=== PATIENT | male | born 1930 | race African-American/Black ===

== ENCOUNTER 2016-10-03 14:48 | Inpatient (IN) | payer MEDICARE, MEDICAID ==
[2016-10-03] MEDS ORDERED: CEFTRIAXONE 1 GM/D5W RTU 50 ML IV ONE (15:46)
--- NOTE | 2016-10-03 15:46 | ER Document Report ---
ED General - General Chief Complaint: Decreased LOC Stated Complaint: LETHARGIC Mode of Arrival: Ambulatory Information source: Patient Notes: 85-year-old male who had recent hip replacement UTI was discharged home on antibiotics presents with complaints of decreased responsiveness per family. Patient was sent to [facility] OUTSIDE OF THE [place] IN LAST 30 DAYS: No - Related Data Allergies/Adverse Reactions: sulfamethoxazole [From Bactrim] Allergy (Verified 07/04/16 21:04) trimethoprim [From Bactrim] Allergy (Verified 07/04/16 21:04) Past Medical History - Social History Smoking Status: Never Smoker Cigarette use (# per day): No Chew tobacco use (# tins/day): No Smoking Education Provided: No Family History: Reviewed & Not Pertinent - Past Medical History Cardiac Medical History: Reports: Hx Hypercholesterolemia, Hx Hypertension GI Medical History: Reports: Hx Gastroesophageal Reflux Disease Past Surgical History: Reports: Hx Abdominal Surgery - hernia, Hx Appendectomy, Hx Orthopedic Surgery - R THR - Immunizations Hx Diphtheria, Pertussis, Tetanus Vaccination: Yes Review of Systems - Review of Systems Notes: REVIEW OF SYSTEMS: CONSTITUTIONAL : Admits to fever EENT: Decreased oral intake CARDIOVASCULAR: Denies chest pain. Denies palpitations or racing or irregular heart beat. Denies ankle edema. RESPIRATORY: Denies cough, cold, or chest congestion. Denies shortness of breath, difficulty breathing, or wheezing. GASTROINTESTINAL: Denies abdominal pain or distention. Denies nausea, vomiting , or diarrhea. Denies blood in vomitus, stools, or per rectum. Denies black, tarry stools. Denies constipation. GENITOURINARY: Denies difficulty urinating, painful urination, burning, frequency, blood in urine, or discharge. MUSCULOSKELETAL: Denies back or neck pain or stiffness. Denies joint pain or swelling. SKIN: Denies rash, lesions or sores. HEMATOLOGIC : Denies easy bruising or bleeding. LYMPHATIC: Denies swollen, enlarged glands. NEUROLOGICAL: Admits to decreased responsiveness per family PSYCHIATRIC: Denies anxiety or stress. Denies depression, suicidal ideation, or homicidal ideation. ALL OTHER SYSTEMS REVIEWED AND NEGATIVE. Dictation was performed using [employer] voice recognition software PHYSICAL EXAMINATION: GENERAL: Chronically ill-appearing male HEAD: Atraumatic, normocephalic. EYES: Pupils equal round and reactive to light, extraocular movements intact, sclera anicteric, conjunctiva are normal. ENT: Nares patent, oropharynx clear without exudates. Moist mucous membranes. NECK: Normal range of motion, supple without lymphadenopathy LUNGS: Breath sounds clear to auscultation bilaterally and equal. No wheezes rales or rhonchi. HEART: Regular rate and rhythm without murmurs ABDOMEN: Soft, nontender, nondistended abdomen. No guarding, no rebound. No masses appreciated. Lux urine notes particles Musculoskeletal: Normal range of motion, no pitting or edema. No cyanosis. NEUROLOGICAL: pt does not speak but opens his eyes and follows with his eyes PSYCH: Normal mood, normal affect. SKIN: Warm, Dry, normal turgor, no rashes or lesions noted. Course - Re-evaluation Re-evalutation: 10/03/16 18:11 Dr Yo gusman for admission, will admit to hospital service 10/03/16 18:12 I spoke with Abida Louie, last hgb on dc was 8.2 no vital signs in computer at this time, but noted on monitor to be nsr, normotensive, afebrile and in no distress - Laboratory Result Diagrams: 10/03/16 17:00 10/03/16 17:00 Laboratory results interpreted by me: 10/03/16 10/03/16 10/03/16 17:00 17:00 17:00 WBC 16.3 H RBC 2.57 L Hgb 7.7 L Hct 23.8 L RDW 15.0 H Seg Neutrophils % 81.4 H Lymphocytes % 10.7 L Absolute Neutrophils 13.3 H BUN 36 H Creatinine 1.31 H Est GFR (Non-Af Amer) 52 L Albumin 3.1 L Urine Urobilinogen 2.0 H Ur Leukocyte Esterase LARGE H - Diagnostic Test Radiology reviewed: Image reviewed, Reports reviewed Discharge - Discharge Clinical Impression: UTI (urinary tract infection) Qualifiers: Hematuria presence: with hematuria Qualified Code(s): N30.01 - Acute cystitis with hematuria Anemia Qualifiers: Anemia type: unspecified type Qualified Code(s): D64.9 - Anemia, unspecified Leukocytosis Qualifiers: Leukocytosis type: other Qualified Code(s): D72.828 - Other elevated white blood cell count Condition: Stable Disposition: ADMITTED INPATIENT Admitting Provider: Hospitalist Unit Admitted: Telemetry
[2016-10-03] MEDS ORDERED: PANTOPRAZOLE SODIUM 40 MG VIAL IV ONE (16:21)
[2016-10-03 17:30] LABS: VENOUS BLOOD BASE EXCESS 2.4 mmol/L; VENOUS BLOOD HCO3 27.6 mmol/L (20-32); VENOUS BLOOD PCO2 44.7 mmHg (35-63); VENOUS BLOOD PH 7.41 (7.30-7.42)
[2016-10-03 17:35] LABS: PROTHROMBIN TIME 14.6 SEC (11.4-15.4)
[2016-10-03 17:42] LABS: ABSOLUTE BASOPHILS # (AUTO) 0.1 10^3/uL (0.0-0.2); ABSOLUTE EOSINOPHILS # (AUTO) 0.1 10^3/uL (0.0-0.6); ABSOLUTE LYMPHOCYTES (AUTO) 1.7 10^3/uL (0.5-4.7); ABSOLUTE MONOCYTES (AUTO) 1.2 10^3/uL (0.1-1.4); ABSOLUTE NEUT (AUTO) 13.3 10^3/uL (1.7-8.2); BASOPHILS % (AUTO) 0.4 % (0-2); EOSINOPHILS % (AUTO) 0.4 % (0-6); HEMATOCRIT 23.8 % (37.9-51.0); HGB HCT DIFFERENCE -0.7; LYMPHOCYTES % (AUTO) 10.7 % (13-45); MEAN CORPUSCULAR HEMOGLOBIN 29.9 pg (27.0-33.4); MEAN CORPUSCULAR HGB CONC 32.3 g/dL (32.0-36.0); MEAN CORPUSCULAR VOLUME 93 fl (80-97); MONOCYTES % (AUTO) 7.1 % (3-13); RED BLOOD COUNT 2.57 10^6/uL (4.35-5.55); SEGMENTED NEUTROPHILS % (AUTO) 81.4 % (42-78); WHITE BLOOD COUNT 16.3 10^3/uL (4.0-10.5)
[2016-10-03 17:43] LABS: ALANINE AMINOTRANSFERASE 39 U/L (21-72); ALBUMIN 3.1 g/dL (3.5-5.0); ALKALINE PHOSPHATASE 83 U/L (38-126); ANION GAP 13 (5-19); ASPARTATE AMINO TRANSFERASE 42 U/L (17-59); BILIRUBIN,TOTAL 0.8 mg/dL (0.2-1.3); BLOOD UREA NITROGEN 36 mg/dL (7-20); CALCIUM 9.2 mg/dL (8.4-10.2); CARBON DIOXIDE 24 mmol/L (22-30); CHLORIDE 103 mmol/L (98-107); CREATININE RESULT 1.31 mg/dL (0.52-1.25); GLUCOSE 104 mg/dL (75-110); POTASSIUM 4.2 mmol/L (3.6-5.0); SODIUM 140.4 mmol/L (137-145); TOTAL PROTEIN 6.4 g/dL (6.3-8.2)
[2016-10-03 17:46] LABS: APPEARANCE,URINE SLIGHTLY-CLOUDY; BILIRUBIN,URINE NEGATIVE (NEGATIVE); GLUCOSE, URINE NEGATIVE (NEGATIVE); KETONES,URINE NEGATIVE (NEGATIVE); LEUKOCYTE ESTERASE,URINE LARGE (NEGATIVE); NITRITE,URINE NEGATIVE (NEGATIVE); PROTEIN,URINE NEGATIVE (NEGATIVE); URINE SPECIFIC GRAVITY 1.025
[2016-10-03] MEDS ORDERED: NORMAL SALINE 1000 ML 1,000 ML IV PRN (17:51)
[2016-10-03 17:57] LABS: HEMOGLOBIN 7.7 g/dL (13.5-17.0)
--- NOTE | 2016-10-03 20:34 | PDOC H&P ---
History of Present Illness Admission Date/PCP: 10/03/16 19:08 GLADYS CARVAJAL MD Patient complains of: Decreased responsiveness. Altered mental status. History of Present Illness: GAVIN GUERRA is a 85 year old male who fell on 09/26/2016 and suffered a right hip fracture. He had a hip replacement on 09/27/2016. He was then transferred to term rehabilitation at [facility] on 09/30/2016. He developed decreased responsiveness and was brought to the [place] emergency department where he was found to have a white blood count of 16.3 and a very positive urine analysis. He also has a hemoglobin of 7.7. He is admitted with a diagnosis of UTI with sepsis and altered mental status, as well as the recent surgical blood loss anemia. Past Medical History Cardiac Medical History: Reports: Hyperlipidema, Hypertension Renal/ Medical History: Reports: Other - UTI GI Medical History: Reports: Gastroesophageal Reflux Disease Past Surgical History Past Surgical History: Reports: Appendectomy, Herniorrhaphy, Orthopedic Surgery - R THR Social History Smoking Status: Never Smoker - Advance Directive Resuscitation Status: Full Code Family History Family History: Reviewed & Not Pertinent Parental Family History Reviewed: No Children Family History Reviewed: No Sibling(s) Family History Reviewed.: No - Unable to obtain due to altered mental status. Medication/Allergy Home Medications: Allopurinol [Zyloprim 300 mg Tablet] 300 mg PO DAILY 10/03/16 Aspirin [Aspirin 325 mg Tablet] 325 mg PO DAILY 10/03/16 Cholecalciferol (Vitamin D3) [Vitamin D3 5000 unit Capsule] 5,000 unit PO DAILY 10/03/16 Cyanocobalamin (Vitamin B-12) [Vitamin B12] 2,500 mcg PO DAILY 10/03/16 Dextromethorphan HBr [Delsym] 30 mg PO Q6 10/03/16 Iron Polysaccharide Complex [Polysaccharide Iron 150] 150 mg PO DAILY 10/03/16 Omeprazole 40 mg PO BIDACBS 10/03/16 Allergies/Adverse Reactions: sulfamethoxazole [From Bactrim] Allergy (Verified 07/04/16 21:04) trimethoprim [From Bactrim] Allergy (Verified 07/04/16 21:04) Review of Systems ROS unobtainable: Other - ROS unobtainable due to decreased level of responsiveness. Physical Exam Vital Signs: Temp Pulse Resp BP Pulse Ox 97.8 F 78 21 H 145/80 H 92 10/03/16 17:23 10/03/16 15:20 10/03/16 18:00 10/03/16 17:23 10/03/16 18:00 General appearance: PRESENT: no acute distress, thin, other - poorly responsive Head exam: PRESENT: atraumatic, normocephalic Eye exam: PRESENT: conjunctiva pink, EOMI, PERRLA. ABSENT: scleral icterus Ear exam: PRESENT: normal external ear exam Mouth exam: PRESENT: dry mucosa, tongue midline Neck exam: ABSENT: carotid bruit, JVD, lymphadenopathy, thyromegaly Respiratory exam: PRESENT: clear to auscultation wally. ABSENT: rales, rhonchi, wheezes Cardiovascular exam: PRESENT: RRR. ABSENT: diastolic murmur, rubs, systolic murmur Vascular exam: PRESENT: normal capillary refill GI/Abdominal exam: PRESENT: normal bowel sounds, soft. ABSENT: distended, guarding, mass, organolmegaly, rebound, tenderness Rectal exam: PRESENT: deferred Extremities exam: PRESENT: other - hips in adductor brace. ABSENT: calf tenderness, clubbing, pedal edema Neurological exam: PRESENT: alert, awake, oriented to person, oriented to place , oriented to time, oriented to situation, CN II-XII grossly intact. ABSENT: motor sensory deficit Psychiatric exam: PRESENT: appropriate affect, normal mood. ABSENT: homicidal ideation, suicidal ideation Skin exam: PRESENT: dry, intact, warm. ABSENT: cyanosis, rash Results Impressions: Chest X-Ray 10/03/16 15:19 IMPRESSION: NO ACUTE RADIOGRAPHIC FINDING IN THE CHEST. Assessment & Plan - Diagnosis (1) UTI (urinary tract infection) Qualifiers: Hematuria presence: with hematuria Qualified Code(s): N30.01 - Acute cystitis with hematuria Is this a current diagnosis for this admission?: YesPlan: IV fluids. Rocephin. (2) Sepsis Is this a current diagnosis for this admission?: YesPlan: IV fluids. Rocephin. Monitor clinically and monitor laboratories. (3) Altered mental status Is this a current diagnosis for this admission?: YesPlan: It is likely that the AMS is related to the urinary tract infection and early sepsis. If his mental status fails to improve with treatment of the UTI and sepsis, other etiologies should be considered as well as further evaluation. (4) Hypertension Is this a current diagnosis for this admission?: YesPlan: Monitor. We will hold his home Rx for now. - Time Time Spent: 50 to 70 Minutes
[2016-10-03] MEDS: DEXTROSE 5%-1/2 NORMAL SALINE 1,000 ML IV PRN (22:43)
[2016-10-03] MEDS: HEPARIN SOD (PORCINE) 5,000 UNIT/ML 1 ML SYRINGE SUBCUT SCH (23:00)
[2016-10-04] MEDS: HEPARIN SOD (PORCINE) 5,000 UNIT/ML 1 ML SYRINGE SUBCUT SCH ×2 (05:58→13:42)
[2016-10-04 07:20] LABS: ABSOLUTE BASOPHILS # (AUTO) 0.1 10^3/uL (0.0-0.2); ABSOLUTE EOSINOPHILS # (AUTO) 0.2 10^3/uL (0.0-0.6); ABSOLUTE LYMPHOCYTES (AUTO) 1.7 10^3/uL (0.5-4.7); ABSOLUTE MONOCYTES (AUTO) 1.1 10^3/uL (0.1-1.4); ABSOLUTE NEUT (AUTO) 10.2 10^3/uL (1.7-8.2); BASOPHILS % (AUTO) 0.5 % (0-2); EOSINOPHILS % (AUTO) 1.2 % (0-6); HEMATOCRIT 22.4 % (37.9-51.0); HGB HCT DIFFERENCE -0.5; LYMPHOCYTES % (AUTO) 12.9 % (13-45); MEAN CORPUSCULAR HEMOGLOBIN 30.2 pg (27.0-33.4); MEAN CORPUSCULAR HGB CONC 32.6 g/dL (32.0-36.0); MEAN CORPUSCULAR VOLUME 93 fl (80-97); MONOCYTES % (AUTO) 8.5 % (3-13); RED BLOOD COUNT 2.42 10^6/uL (4.35-5.55); RED CELL DISTRIBUTION WIDTH 15.4 % (11.5-14.0); SEGMENTED NEUTROPHILS % (AUTO) 76.9 % (42-78); WHITE BLOOD COUNT 13.3 10^3/uL (4.0-10.5)
[2016-10-04 07:24] LABS: HEMOGLOBIN 7.3 g/dL (13.5-17.0)
[2016-10-04 07:27] LABS: ANION GAP 10 (5-19); BLOOD UREA NITROGEN 38 mg/dL (7-20); CALCIUM 8.9 mg/dL (8.4-10.2); CARBON DIOXIDE 26 mmol/L (22-30); CHLORIDE 106 mmol/L (98-107); CREATININE RESULT 1.32 mg/dL (0.52-1.25); GLUCOSE 130 mg/dL (75-110); POTASSIUM 3.4 mmol/L (3.6-5.0); SODIUM 141.6 mmol/L (137-145)
[2016-10-04] MEDS ORDERED: LANSOPRAZOLE 30 MG TAB.RAP.DR PO SCH (08:00)
[2016-10-04] MEDS ORDERED: CHOLECALCIFEROL (D3) 1,000 UNIT TABLET PO SCH (10:00)
[2016-10-04] MEDS ORDERED: CYANOCOBALAMIN (VITAMIN B-12) 1,000 MCG TABLET PO SCH (10:00)
[2016-10-04] MEDS ORDERED: (PENDING PHARMACY ID) (Cyanocobalamin (Vitamin B-12) [Vitamin B12] 2,500 MCG) PO SCH (10:00)
[2016-10-04] MEDS ORDERED: ALLOPURINOL 300 MG TABLET PO SCH (10:00)
[2016-10-04] MEDS ORDERED: ASPIRIN 325 MG TABLET PO SCH (10:00)
[2016-10-04] MEDS: DEXTROSE 5%-1/2 NORMAL SALINE 1,000 ML IV PRN (10:38)
[2016-10-04] MEDS ORDERED: NORMAL SALINE 250 ML IV PRN ×2 (11:16)
[2016-10-04] MEDS ORDERED: PHARMACY COMMUNICATION ORDER MC NR (11:30)
[2016-10-04] MEDS ORDERED: DEXTROSE 5%-1/2 NORMAL SALINE 1,000 ML IV PRN (11:46)
[2016-10-04] MEDS ORDERED: POTASSI CL 20 MEQ/50 ML RIDER 50 ML IV ONE (11:50)
[2016-10-04] MEDS ORDERED: ERTAPENEM SODIUM 1 GM in NORMAL SALINE 50 ML IV ONE (12:30)
[2016-10-04] MEDS ORDERED: CEFTRIAXONE 1 GM/D5W RTU 1 GM/50 ML RTUPB IV SCH (18:00)
[2016-10-04] MEDS ORDERED: FUROSEMIDE INJ/PF 20 MG/2 ML SDV IV ONE (18:45)
[2016-10-04] MEDS ORDERED: MORPHINE SULFATE 10 MG/ML INJ IV PRN (19:57)
[2016-10-04] MEDS: IRON POLYSACCHARIDES COMPLEX 150 MG CAPSULE PO SCH (19:58)
--- NOTE | 2016-10-04 20:02 | PDOC PROGRESS REPORT ---
Subjective Progress Note for:: 10/04/16 Subjective:: Unable to obtain review of systems secondary to underlying dementia. When I visited patient he is quite somnolent. Physical Exam Vital Signs: Temp Pulse Resp BP Pulse Ox 97.8 F 78 23 H 129/71 H 100 10/03/16 17:23 10/03/16 15:20 10/04/16 07:31 10/04/16 07:31 10/04/16 07:31 Intake & Output 10/03/16 10/04/16 10/05/16 06:59 06:59 06:59 Weight 78.3 kg Exam: General: Somnolent, no acute respiratory distress HEENT: Pupils equal round and reactive to light, oropharynx is dry, pink, no scleral icterus, no conjunctival injection Neck: No JVD, trachea midline Chest: Diminished bases bilaterally, otherwise clear to auscultation CV: Regular rate and rhythm, normal S1 and S2, no rub, or gallop Abdomen: Soft, nontender to palpation, distended, hypoactive bowel sounds; no rebound, rigidity, or guarding Extremities: No cyanosis, clubbing or edema Neuro: Somnolent Results Laboratory Results: 10/04/16 06:50 10/04/16 06:50 10/04/16 10/04/16 06:50 06:50 WBC 13.3 H RBC 2.42 L Hgb 7.3 L Hct 22.4 L MCV 93 MCH 30.2 MCHC 32.6 RDW 15.4 H Plt Count 313 Seg Neutrophils % 76.9 Lymphocytes % 12.9 L Monocytes % 8.5 Eosinophils % 1.2 Basophils % 0.5 Absolute Neutrophils 10.2 H Absolute Lymphocytes 1.7 Absolute Monocytes 1.1 Absolute Eosinophils 0.2 Absolute Basophils 0.1 Sodium 141.6 Potassium 3.4 L Chloride 106 Carbon Dioxide 26 Anion Gap 10 BUN 38 H Creatinine 1.32 H Est GFR ( Amer) > 60 Est GFR (Non-Af Amer) 52 L Glucose 130 H Calcium 8.9 Impressions: Chest X-Ray 10/03/16 15:19 IMPRESSION: NO ACUTE RADIOGRAPHIC FINDING IN THE CHEST. Assessment & Plan - Diagnosis (1) Acute on chronic intracranial subdural hematoma Is this a current diagnosis for this admission?: YesPlan: Have discussed patient's case with Dr. Han , [facility] neurosurgery, who states patient isn't a good surgical candidate due to advanced age. Recommends dexamethasone 4mg q8 for one week. Will place this and do MEND examinations q4. Plan to repeat CT scan in am. (2) Sepsis Qualifiers: Sepsis type: sepsis due to unspecified organism Qualified Code(s): A41.9 - Sepsis, unspecified organism Is this a current diagnosis for this admission?: YesPlan: Patient's sepsis possibly due to complicated UTI. Have advance patient to Invanz. 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 Will replace and reculture. Patient on Invanz. (4) Acute blood loss anemia Is this a current diagnosis for this admission?: YesPlan: Will occult patient's stool. Patient has possibly had a small amount of blood loss into his cranial. Patient likely suffering from acute blood loss anemia due to recent hip surgery. Will give 2 units packed red cells. (5) History of right hip hemiarthroplasty Is this a current diagnosis for this admission?: YesPlan: Consult physical therapy. Patient had surgery within the last 2 weeks that Martha Palma. (6) Dysphasia Is this a current diagnosis for this admission?: Yes (7) Dysphagia Qualifiers: Dysphagia type: unspecified Qualified Code(s): R13.10 - Dysphagia, unspecified Is this a current diagnosis for this admission?: YesPlan: Will obtain modified barium swallow. Have discussed with patient's family concern for silent aspiration. Will repeat chest x-ray. (8) Dementia Qualifiers: Dementia type: vascular dementia Dementia behavioral disturbance: without behavioral disturbance Qualified Code(s): F01.50 - Vascular dementia without behavioral disturbance Is this a current diagnosis for this admission?: YesPlan: Continue supportive care. Will stop Exelon patch. Patient's family reports that he was taking Delsym at home for this. (9) Hyperlipidemia Qualifiers: Hyperlipidemia type: unspecified Qualified Code(s): E78.5 - Hyperlipidemia, unspecified Is this a current diagnosis for this admission?: Yes (10) Hypertension Qualifiers: Hypertension type: essential hypertension Qualified Code(s): I10 - Essential (primary) hypertension Is this a current diagnosis for this admission?: YesPlan: Patient is apparently taking no medication for his hypertension as an outpatient. Will place when necessary hydralazine. (11) Altered mental status Qualifiers: Altered mental status type: somnolence Qualified Code(s): R40.0 - Somnolence Is this a current diagnosis for this admission?: YesPlan: Patient's somnolence likely secondary to acute on chronic subdural hematoma and sepsis from UTI. (12) Advanced directives, counseling/discussion Is this a current diagnosis for this admission?: YesPlan: Advance directives including CODE STATUS, feeding tube, as well as care plan were discussed with patient's daughters who are his surrogate decision maker. This was discussed with Bartolo Shen and Pura Birmingham, daughters in 2 separate conversations for a total of 65 minutes. - Time Time Spent with patient: 35 or more minutes Medications reviewed and adjusted accordingly: Yes Anticipated discharge: Acute Rehab - Inpatient Certification Based on my medical assessment, after consideration of the patient's comorbidities, presenting symptoms, or acuity I expect that the services needed warrant INPATIENT care.: Yes I certify that my determination is in accordance with my understanding of Medicare's requirements for reasonable and necessary INPATIENT services [42 CFR 412.3e].: Yes Medical Necessity: Significant Comorbidiites Make Outpatient Treatment Too Risky , Need Close Monitoring Due to Risk of Patient Decompensation, Need For IV Fluids, Need For Continuous Telemetry Monitoring, Need for Neurological Checks, Risk of Complication if Not Cared For in Hospital Post Hospital Care: D/C Bottoming Room Supervisor Documentation
[2016-10-05] MEDS: DEXAMETHASONE SOD PHOSPHATE INJ 4 MG/1 ML VIAL IV SCH ×4 (00:49→22:36)
[2016-10-05] MEDS: HEPARIN SOD (PORCINE) 5,000 UNIT/ML 1 ML SYRINGE SUBCUT SCH ×2 (00:49→05:48)
[2016-10-05] MEDS: PANTOPRAZOLE SODIUM 40 MG VIAL IV SCH ×3 (00:49→22:36)
[2016-10-05 02:24] LABS: ABSOLUTE EOSINOPHILS # (AUTO) 0.1 10^3/uL (0.0-0.6); ABSOLUTE LYMPHOCYTES (AUTO) 0.9 10^3/uL (0.5-4.7); ABSOLUTE MONOCYTES (AUTO) 0.6 10^3/uL (0.1-1.4); ABSOLUTE NEUT (AUTO) 11.3 10^3/uL (1.7-8.2); BASOPHILS % (AUTO) 0.3 % (0-2); EOSINOPHILS % (AUTO) 0.4 % (0-6); HGB HCT DIFFERENCE -0.3; LYMPHOCYTES % (AUTO) 7.2 % (13-45); MEAN CORPUSCULAR HEMOGLOBIN 29.6 pg (27.0-33.4); MEAN CORPUSCULAR VOLUME 90 fl (80-97); MONOCYTES % (AUTO) 4.9 % (3-13); RED BLOOD COUNT 3.34 10^6/uL (4.35-5.55); RED CELL DISTRIBUTION WIDTH 15.2 % (11.5-14.0); SEGMENTED NEUTROPHILS % (AUTO) 87.2 % (42-78)
[2016-10-05 02:27] LABS: HEMOGLOBIN 9.9 g/dL (13.5-17.0)
[2016-10-05 04:57] LABS: ABSOLUTE LYMPHOCYTES (AUTO) 0.8 10^3/uL (0.5-4.7); ABSOLUTE MONOCYTES (AUTO) 0.4 10^3/uL (0.1-1.4); ABSOLUTE NEUT (AUTO) 12.7 10^3/uL (1.7-8.2); BASOPHILS % (AUTO) 0.3 % (0-2); EOSINOPHILS % (AUTO) 0.1 % (0-6); HEMATOCRIT 27.2 % (37.9-51.0); HEMOGLOBIN 9.1 g/dL (13.5-17.0); HGB HCT DIFFERENCE 0.1; LYMPHOCYTES % (AUTO) 5.7 % (13-45); MEAN CORPUSCULAR HEMOGLOBIN 29.8 pg (27.0-33.4); MEAN CORPUSCULAR HGB CONC 33.4 g/dL (32.0-36.0); MEAN CORPUSCULAR VOLUME 89 fl (80-97); MONOCYTES % (AUTO) 2.6 % (3-13); RED BLOOD COUNT 3.05 10^6/uL (4.35-5.55); RED CELL DISTRIBUTION WIDTH 15.3 % (11.5-14.0); SEGMENTED NEUTROPHILS % (AUTO) 91.3 % (42-78); WHITE BLOOD COUNT 13.9 10^3/uL (4.0-10.5)
[2016-10-05 05:06] LABS: ANION GAP 11 (5-19); BLOOD UREA NITROGEN 40 mg/dL (7-20); CALCIUM 9.3 mg/dL (8.4-10.2); CARBON DIOXIDE 23 mmol/L (22-30); CHLORIDE 107 mmol/L (98-107); CREATININE RESULT 1.17 mg/dL (0.52-1.25); GLUCOSE 134 mg/dL (75-110); MAGNESIUM 2.2 mg/dL (1.6-2.3); POTASSIUM 3.5 mmol/L (3.6-5.0); SODIUM 141.4 mmol/L (137-145)
[2016-10-05 05:13] LABS: PREALBUMIN 11.4 mg/dL (17.6-36.0)
[2016-10-05] MEDS ORDERED: ERTAPENEM SODIUM 1 GM in NORMAL SALINE 50 ML IV SCH (10:00)
[2016-10-05] MEDS: IRON POLYSACCHARIDES COMPLEX 150 MG CAPSULE PO SCH (10:51)
[2016-10-05] MEDS ORDERED: PHYTONADIONE INJ 10 MG/1 ML AMPULE SUBCUT ONE (13:00)
[2016-10-05] MEDS ORDERED: CLINDAMYCIN 600 MG/D5W RTU 600 MG/50 ML RTUPB IV ONE (15:00)
--- NOTE | 2016-10-05 15:26 | ST Inp Modified Barium Swallow ---
Medical Diagnosis - Medical Diagnoses Medical Diagnosis Description & ICD-10 Code(s): acute on chronic subdural hematoma - ICD-10 Tx Diagnosis Coding (1) Acute on chronic intracranial subdural hematoma ICD-10 Code(s): I62.01 - NONTRAUMATIC ACUTE SUBDURAL HEMORRHAGE (2) Altered mental status ICD-10 Code(s): R41.82 - ALTERED MENTAL STATUS, UNSPECIFIED (3) Complicated UTI (urinary tract infection) ICD-10 Code(s): N39.0 - URINARY TRACT INFECTION, SITE NOT SPECIFIED (4) Dementia ICD-10 Code(s): F03.90 - UNSPECIFIED DEMENTIA WITHOUT BEHAVIORAL DISTURBANCE (5) Dysphagia ICD-10 Code(s): R13.10 - DYSPHAGIA, UNSPECIFIED (6) Dysphasia ICD-10 Code(s): R47.02 - DYSPHASIA (7) History of right hip hemiarthroplasty ICD-10 Code(s): Z96.641 - PRESENCE OF RIGHT ARTIFICIAL HIP JOINT (8) Sepsis ICD-10 Code(s): A41.9 - SEPSIS, UNSPECIFIED ORGANISM ST Inpatient [facility] - General Date: 10/05/16 Date of Onset: 10/03/16 - admission - History History Obtained From: Other - EMR -: Medical - Co-morbidities & complexities as listed above, including new hip surgery making patient unable to be positioned at 90 degrees. Medications: Medications Reviewed Allergies: Refer to medical record - Subjective Current Nutritional Means: PO - mechanical soft diet & nectar thick liquids Current Symptoms: Pneumonia, Aspiration Pain: unable to communicate, no signs/symptoms of pain - Objective Assessment: Left Lateral, Reclined - patient at approximately 70-80 degrees elevation; legs positioned straight in front of him - Food Trials Food Trials Used: Thin liquids, Pureed The Patient: fed by ST, via spoon - Assessment Labial Function: Impaired Lingual Function: Impaired Mandibular Function: Impaired Velo-Pharyngeal Function: Not assessed Laryngeal Function: no volitional swallow - Pharyngeal Stage Initiation of Pharyngeal Stage: Delayed, Absent Swallow Decreased Laryngeal Elevation: Yes Reduced Pressure Generation: Yes Reduced Tongue Base Retraction: Yes Pre-Swallowing Pooling in Valleculae: Significant Pre-Swallowing Pooling in Pyriforms: Significant Reduced Thyro-Hyiod Approximation: Yes Reduced Epiglottic Excursion: Yes Reduced Pharyngeal Peristalsis: Yes - Impression/Summary Patient Presents With: Oral stage dysphagia, Pharyngeal stage dysph., Oral- Pharyngeal dysph., Profound Risk of Aspiration: Severe Risk of Nutritional Compromise: Severe - Recommendations NPO: yes Dysphagia Therapy with ORNAMENTAL MACHINE OPERATOR: No - patient unable to follow commands or initiate swallow - no indication for skilled speech therapy at this time. Other Recommendations: Patient initiated swallow from pyriforms with initial spoon sip of thin, however when given second spoon sip, did not initiate swallow without maximal cueing (swallow not triggered until barium past level of pyriforms). Patient then trialed with puree (chocolate pudding) to determine if would improve performance with increased sensory input. No swallow initiated. Suction required to remove bolus from mouth. Patient is not judged to be safe for any consistency due to delayed swallow and absence of swallow reflex. ST discussed results with referrring physician, Dr. Wong. RECOMMENDATIONS: 1. NPO due to likely aspiration of any consistency presented. Patient displays inconsistent swallowing abilities, and when initiates swallow is after significant delay that places the patient at risk for aspiration. Patient is likely aspirating secretions as well. 2. If family wishes to continue PO feeds, the patient is at risk for aspiration of any consistency presented and, in the judgement of the ST, will aspirate during any PO. However , if the family wishes to continue PO, liquids will result in least residual. Patient likely unable to initiate swallow with purees due to difficulties transferring bolus posteriorly and likely to have signficant residuals throughout pharynx, as well as risk of choking and airway obstruction. If patient improves & swallowing re-assessment is considered, would recommend FEES procedure as patient's swallows were highly delayed resulting in increased fluoro time and FEES would allow for visualization of secretions to determine patient's ability to manage before introducing bolus. - Time Total Time: 15 Total Timed Minutes: 0
[2016-10-05] MEDS: IPRATROPIUM/ALBUTEROL 0.5-2.5 MG/3 ML AMPUL NEB SCH (16:40)
--- NOTE | 2016-10-05 17:54 | PDOC PROGRESS REPORT ---
Subjective Progress Note for:: 10/05/16 Subjective:: Patient seen earlier today on morning rounds. Unable to obtain review of systems secondary to underlying dementia. Physical Exam Vital Signs: Temp Pulse Resp BP Pulse Ox 97.9 F 70 20 155/79 H 92 10/05/16 16:15 10/05/16 16:15 10/05/16 16:15 10/05/16 16:15 10/05/16 16:15 Intake & Output 10/04/16 10/05/16 10/06/16 06:59 06:59 06:59 Intake Total 2150 1350 Output Total 625 150 Balance 1525 1200 Weight 78.3 kg 68.6 kg Exam: General: Awake and tracks but does not follow commands, no acute respiratory distress HEENT: Pupils equal round and reactive to light, oropharynx is dry, pink, no scleral icterus, no conjunctival injection Neck: No JVD, trachea midline Chest: Diminished bases bilaterally, left lower lobe rhonchi CV: Regular rate and rhythm, normal S1 and S2, no rub, or gallop Abdomen: Soft, nontender to palpation, distended, hypoactive bowel sounds; no rebound, rigidity, or guarding Extremities: No cyanosis, clubbing or edema Neuro: Does not follow commands Results Laboratory Results: 10/05/16 04:41 10/05/16 04:41 10/04/16 10/05/16 10/05/16 12:28 01:52 04:41 WBC 13.0 H 13.9 H RBC 3.34 L 3.05 L Hgb 9.9 L D 9.1 L Hct 30.0 L 27.2 L MCV 90 89 MCH 29.6 29.8 MCHC 33.0 33.4 RDW 15.2 H 15.3 H Plt Count 321 308 Seg Neutrophils % 87.2 H 91.3 H Lymphocytes % 7.2 L 5.7 L Monocytes % 4.9 2.6 L Eosinophils % 0.4 0.1 Basophils % 0.3 0.3 Absolute Neutrophils 11.3 H 12.7 H Absolute Lymphocytes 0.9 0.8 Absolute Monocytes 0.6 0.4 Absolute Eosinophils 0.1 0.0 Absolute Basophils 0.0 0.0 Sodium Potassium Chloride Carbon Dioxide Anion Gap BUN Creatinine Est GFR ( Amer) Est GFR (Non-Af Amer) Glucose Calcium Magnesium Prealbumin Blood Type O POSITIVE Antibody Screen NEGATIVE 10/05/16 04:41 WBC RBC Hgb Hct MCV MCH MCHC RDW Plt Count Seg Neutrophils % Lymphocytes % Monocytes % Eosinophils % Basophils % Absolute Neutrophils Absolute Lymphocytes Absolute Monocytes Absolute Eosinophils Absolute Basophils Sodium 141.4 Potassium 3.5 L Chloride 107 Carbon Dioxide 23 Anion Gap 11 BUN 40 H Creatinine 1.17 Est GFR ( Amer) > 60 Est GFR (Non-Af Amer) > 60 Glucose 134 H Calcium 9.3 Magnesium 2.2 Prealbumin 11.4 L Blood Type Antibody Screen Impressions: KUB X-Ray 10/04/16 00:00 IMPRESSION: Colonic distention which may represent colonic ileus, chronic megacolon or distal obstruction. Head CT 10/05/16 00:00 IMPRESSION: Chronic left-sided subdural hematoma/ hygroma with possible acute component given some densities within the in the collection. Overall this is not significantly changed in size comparison the prior study (approximately 1 mm greater in size than on the prior study though this may be defect due to difference in technique. There is [id number]-[id number] midline shift which measures approximately 7 mm which is slightly increased in comparison to the prior study which measures 6 mm but again this may be due to difference in technique. No evidence of herniation. Chest X-Ray 10/05/16 06:00 IMPRESSION: Patchy airspace opacity noted in the left lung base concerning for underlying infiltrate, edema, or aspiration. Correlate clinically. Modified Barium Swallow 10/05/16 07:00 IMPRESSION: NO EVIDENCE OF PENETRATION OR ASPIRATION ALTHOUGH THE STUDY WAS LIMITED DUE TO PATIENT'S CONDITION AND INITIATION OF ONLY 1 SWALLOW OF THIN LIQUIDS. THERE WAS SPILLAGE OVER THE BASE TONGUE INTO THE VALLECULAE AND PIRIFORM SINUSES WHICH REMAIN THROUGHOUT THE ENTIRE STUDY PUTTING THE PATIENT AT HIGH RISK OF ASPIRATION. PLEASE SEE SPEECH PATHOLOGIST REPORT FOR OTHER FINDINGS AND RECOMMENDATIONS. Assessment & Plan - Diagnosis (1) Acute on chronic intracranial subdural hematoma Is this a current diagnosis for this admission?: YesPlan: Have discussed with patient's health care proxy, his daughter, the option of surgery. She reports she does not want him to "have a hole cut in his head at his age." She is elected to make patient a DNR/DNI. (2) Sepsis Qualifiers: Sepsis type: sepsis due to unspecified organism Qualified Code(s): A41.9 - Sepsis, unspecified organism Is this a current diagnosis for this admission?: YesPlan: Patient's sepsis possibly due to complicated UTI and patient now has aspiration pneumonia. 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 Patient on Invanz. (4) Acute blood loss anemia Is this a current diagnosis for this admission?: YesPlan: Will occult patient's stool. Patient has possibly had a small amount of blood loss into his cranial. Patient likely suffering from acute blood loss anemia due to recent hip surgery. Patient has had an appropriate increase and hemoglobin from 7.3 to 9.9 (5) History of right hip hemiarthroplasty Is this a current diagnosis for this admission?: YesPlan: Consult physical therapy. Patient had surgery within the last 2 weeks that Martha Palma. (6) Dysphasia Is this a current diagnosis for this admission?: Yes (7) Dysphagia Qualifiers: Dysphagia type: unspecified Qualified Code(s): R13.10 - Dysphagia, unspecified Is this a current diagnosis for this admission?: YesPlan: Patient has failed modified barium swallow study will discuss with patient's family the idea of PEG tube. (8) Dementia Qualifiers: Dementia type: vascular dementia Dementia behavioral disturbance: without behavioral disturbance Qualified Code(s): F01.50 - Vascular dementia without behavioral disturbance Is this a current diagnosis for this admission?: Yes (9) Hyperlipidemia Qualifiers: Hyperlipidemia type: unspecified Qualified Code(s): E78.5 - Hyperlipidemia, unspecified Is this a current diagnosis for this admission?: Yes (10) Hypertension Qualifiers: Hypertension type: essential hypertension Qualified Code(s): I10 - Essential (primary) hypertension Is this a current diagnosis for this admission?: YesPlan: Patient is apparently taking no medication for his hypertension as an outpatient. Will place when necessary hydralazine. (11) Altered mental status Qualifiers: Altered mental status type: somnolence Qualified Code(s): R40.0 - Somnolence Is this a current diagnosis for this admission?: YesPlan: Improved. Patient's somnolence likely secondary to acute on chronic subdural hematoma and sepsis from aspiration pneumonia. - Time Time Spent with patient: 35 or more minutes Medications reviewed and adjusted accordingly: Yes Anticipated discharge: Acute Rehab
[2016-10-05] MEDS: GUAIFENESIN SYRP 200 MG/10 ML UDC NG SCH (18:54)
[2016-10-05] MEDS ORDERED: PHARMACY COMMUNICATION ORDER MC NR (19:00)
[2016-10-05] MEDS ORDERED: FERROUS SULFATE LIQUID 300 MG/5 ML UDC NG ONE (19:30)
[2016-10-05] MEDS: CLINDAMYCIN 600 MG/D5W RTU 600 MG/50 ML RTUPB IV SCH (22:36)
[2016-10-06] MEDS: IPRATROPIUM/ALBUTEROL 0.5-2.5 MG/3 ML AMPUL NEB SCH ×3 (00:22→15:57)
[2016-10-06] MEDS: GUAIFENESIN SYRP 200 MG/10 ML UDC NG SCH ×7 (00:56→21:26)
[2016-10-06] MEDS: DEXAMETHASONE SOD PHOSPHATE INJ 4 MG/1 ML VIAL IV SCH ×3 (05:11→21:36)
[2016-10-06] MEDS: CLINDAMYCIN 600 MG/D5W RTU 600 MG/50 ML RTUPB IV SCH (05:11)
[2016-10-06] MEDS: DEXTROSE 5%-1/2 NORMAL SALINE 1,000 ML IV PRN ×2 (07:48→21:36)
[2016-10-06] MEDS: PANTOPRAZOLE SODIUM 40 MG VIAL IV SCH ×2 (09:24→21:36)
[2016-10-06 09:25] LABS: ABSOLUTE LYMPHOCYTES (AUTO) 1.2 10^3/uL (0.5-4.7); ABSOLUTE MONOCYTES (AUTO) 0.6 10^3/uL (0.1-1.4); ABSOLUTE NEUT (AUTO) 15.2 10^3/uL (1.7-8.2); BASOPHILS % (AUTO) 0.2 % (0-2); EOSINOPHILS % (AUTO) 0.1 % (0-6); HEMATOCRIT 33.8 % (37.9-51.0); HEMOGLOBIN 10.9 g/dL (13.5-17.0); HGB HCT DIFFERENCE -1.1; LYMPHOCYTES % (AUTO) 7.1 % (13-45); MEAN CORPUSCULAR HEMOGLOBIN 29.3 pg (27.0-33.4); MEAN CORPUSCULAR HGB CONC 32.2 g/dL (32.0-36.0); MEAN CORPUSCULAR VOLUME 91 fl (80-97); MONOCYTES % (AUTO) 3.6 % (3-13); RED BLOOD COUNT 3.71 10^6/uL (4.35-5.55); RED CELL DISTRIBUTION WIDTH 15.7 % (11.5-14.0); WHITE BLOOD COUNT 17.1 10^3/uL (4.0-10.5)
[2016-10-06] MEDS: HYDRALAZINE HCL INJ/PF 20 MG/1 ML SDV IV PRN (09:25)
[2016-10-06] MEDS: FERROUS SULFATE LIQUID 300 MG/5 ML UDC NG SCH ×2 (09:26→17:18)
[2016-10-06 09:36] LABS: ANION GAP 14 (5-19); BLOOD UREA NITROGEN 40 mg/dL (7-20); CALCIUM 9.4 mg/dL (8.4-10.2); CARBON DIOXIDE 24 mmol/L (22-30); CHLORIDE 105 mmol/L (98-107); CREATININE RESULT 1.04 mg/dL (0.52-1.25); GLUCOSE 171 mg/dL (75-110); POTASSIUM 3.3 mmol/L (3.6-5.0); SODIUM 142.6 mmol/L (137-145)
[2016-10-06] MEDS: ERTAPENEM SODIUM 1 GM in NORMAL SALINE 50 ML IV SCH (11:43)
[2016-10-06] MEDS: ENALAPRILAT DIHYDRATE INJ/PF 1.25 MG/1 ML SDV IV SCH ×3 (11:47→23:51)
[2016-10-06] MEDS ORDERED: LACTOBACILLUS ACIDOPHILUS 250 MG TAB NG SCH (18:00)
--- NOTE | 2016-10-06 18:36 | PDOC PROGRESS REPORT ---
Subjective Progress Note for:: 10/06/16 Subjective:: Patient was unable to receive NG overnight. Attempt at Dobbhoff was made today under fluoroscopy, but patient appeared to have a distal esophageal stricture and they were unable to pass Gastrografin through this. Unable to obtain review of systems from patient secondary to his underlying dementia. Family reports he is more verbal today and appears to be more awake. Physical Exam Vital Signs: Temp Pulse Resp BP Pulse Ox 98.3 F 77 18 154/76 H 98 10/06/16 04:00 10/06/16 04:00 10/06/16 04:00 10/06/16 04:00 10/06/16 04:00 Intake & Output 10/05/16 10/06/16 10/07/16 06:59 06:59 06:59 Intake Total 2150 2750 Output Total 625 750 Balance 1525 2000 Weight 68.6 kg 68.4 kg Exam: General: Awake and tracks but does not follow commands, no acute respiratory distress HEENT: Pupils equal round and reactive to light, oropharynx is dry, pink, no scleral icterus, no conjunctival injection Neck: No JVD, trachea midline Chest: Diminished bases bilaterally, left lower lobe rhonchi CV: Regular rate and rhythm, normal S1 and S2, no rub, or gallop Abdomen: Soft, nontender to palpation, distended, hypoactive bowel sounds; no rebound, rigidity, or guarding Extremities: No cyanosis, clubbing or edema Neuro: Does not follow commands Results Laboratory Results: 10/05/16 04:41 10/05/16 04:41 Impressions: Head CT 10/05/16 00:00 IMPRESSION: Chronic left-sided subdural hematoma/ hygroma with possible acute component given some densities within the in the collection. Overall this is not significantly changed in size comparison the prior study (approximately 1 mm greater in size than on the prior study though this may be defect due to difference in technique. There is jeof-[id number] midline shift which measures approximately 7 mm which is slightly increased in comparison to the prior study which measures 6 mm but again this may be due to difference in technique. No evidence of herniation. Chest X-Ray 10/05/16 06:00 IMPRESSION: Patchy airspace opacity noted in the left lung base concerning for underlying infiltrate, edema, or aspiration. Correlate clinically. Modified Barium Swallow 10/05/16 07:00 IMPRESSION: NO EVIDENCE OF PENETRATION OR ASPIRATION ALTHOUGH THE STUDY WAS LIMITED DUE TO PATIENT'S CONDITION AND INITIATION OF ONLY 1 SWALLOW OF THIN LIQUIDS. THERE WAS SPILLAGE OVER THE BASE TONGUE INTO THE VALLECULAE AND PIRIFORM SINUSES WHICH REMAIN THROUGHOUT THE ENTIRE STUDY PUTTING THE PATIENT AT HIGH RISK OF ASPIRATION. PLEASE SEE SPEECH PATHOLOGIST REPORT FOR OTHER FINDINGS AND RECOMMENDATIONS. KUB X-Ray 10/05/16 18:53 IMPRESSION: Tip and proximal port of a nasogastric tube are in the distal esophagus; consider adjustment/removal. Colonic distention persists. Assessment & Plan - Diagnosis (1) Acute on chronic intracranial subdural hematoma Is this a current diagnosis for this admission?: YesPlan: Have discussed with patient's health care proxy, his daughter, the option of surgery. She reports she does not want him to "have a hole cut in his head at his age." Patient a DNR/DNI. Patient doing well with IV Decadron. Continue this. (2) Sepsis Qualifiers: Sepsis type: sepsis due to unspecified organism Qualified Code(s): A41.9 - Sepsis, unspecified organism Is this a current diagnosis for this admission?: YesPlan: Patient's sepsis possibly due to aspiration pneumonia. (3) Complicated UTI (urinary tract infection) Is this a current diagnosis for this admission?: YesPlan: Feel this was a presumptive diagnosis as his urine did not grow anything. (4) Acute blood loss anemia Is this a current diagnosis for this admission?: YesPlan: Stools negative for occult blood. Patient has possibly had a small amount of blood loss into his cranium. Patient likely suffering from acute blood loss anemia due to recent hip surgery. Patient has had an appropriate increase and hemoglobin from 7.3 to 9.9 (5) History of right hip hemiarthroplasty Is this a current diagnosis for this admission?: YesPlan: Consult physical therapy. Patient had surgery within the last 2 weeks that Martha Palma. (6) Dysphasia Is this a current diagnosis for this admission?: Yes (7) Dysphagia Qualifiers: Dysphagia type: unspecified Qualified Code(s): R13.10 - Dysphagia, unspecified Is this a current diagnosis for this admission?: YesPlan: Patient has failed modified barium swallow study and family is amenable to the idea of PEG tube. Patient went to have Dobbhoff placed and was found to have a distal esophageal stricture. Will consult surgery for possible endoscopy with PEG tube placement. (8) Dementia Qualifiers: Dementia type: vascular dementia Dementia behavioral disturbance: without behavioral disturbance Qualified Code(s): F01.50 - Vascular dementia without behavioral disturbance Is this a current diagnosis for this admission?: YesPlan: Continue supportive care. Will stop Exelon patch. Patient's family reports that he was taking Delsym at home for this. (9) Hyperlipidemia Qualifiers: Hyperlipidemia type: unspecified Qualified Code(s): E78.5 - Hyperlipidemia, unspecified Is this a current diagnosis for this admission?: Yes (10) Hypertension Qualifiers: Hypertension type: essential hypertension Qualified Code(s): I10 - Essential (primary) hypertension Is this a current diagnosis for this admission?: Yes (11) Altered mental status Qualifiers: Altered mental status type: somnolence Qualified Code(s): R40.0 - Somnolence Is this a current diagnosis for this admission?: YesPlan: Improved. Patient's somnolence likely secondary to acute on chronic subdural hematoma and sepsis from aspiration pneumonia. (12) Aspiration pneumonia Qualifiers: Aspiration pneumonia type: due to regurgitated food Laterality: left Lung location: lower lobe of lung Qualified Code(s): J69.0 - Pneumonitis due to inhalation of food and vomit Is this a current diagnosis for this admission?: YesPlan: Patient with aspiration pneumonia secondary to dysphagia from subdural hematoma. Patient also found to have distal esophageal stricture. Patient currently on ertapenem and breathing treatments. Unable to obtain sputum specimen. Continue to follow. - Time Time Spent with patient: 25-34 minutes Medications reviewed and adjusted accordingly: Yes Anticipated discharge: Acute Rehab
[2016-10-07] MEDS: IPRATROPIUM/ALBUTEROL 0.5-2.5 MG/3 ML AMPUL NEB SCH ×3 (00:19→16:16)
[2016-10-07] MEDS: GUAIFENESIN SYRP 200 MG/10 ML UDC NG SCH ×2 (01:16→05:20)
[2016-10-07] MEDS: DEXAMETHASONE SOD PHOSPHATE INJ 4 MG/1 ML VIAL IV SCH ×3 (05:15→22:24)
[2016-10-07] MEDS: ENALAPRILAT DIHYDRATE INJ/PF 1.25 MG/1 ML SDV IV SCH ×3 (05:15→18:09)
[2016-10-07] MEDS: HYDRALAZINE HCL INJ/PF 20 MG/1 ML SDV IV PRN (08:38)
[2016-10-07 09:05] LABS: ABSOLUTE MONOCYTES (AUTO) 0.8 10^3/uL (0.1-1.4); ABSOLUTE NEUT (AUTO) 13.6 10^3/uL (1.7-8.2); BASOPHILS % (AUTO) 0.2 % (0-2); EOSINOPHILS % (AUTO) 0.1 % (0-6); HEMATOCRIT 31.9 % (37.9-51.0); HEMOGLOBIN 10.2 g/dL (13.5-17.0); HGB HCT DIFFERENCE -1.3; LYMPHOCYTES % (AUTO) 6.5 % (13-45); MEAN CORPUSCULAR HEMOGLOBIN 29.1 pg (27.0-33.4); MEAN CORPUSCULAR VOLUME 91 fl (80-97); MONOCYTES % (AUTO) 5.2 % (3-13); WHITE BLOOD COUNT 15.5 10^3/uL (4.0-10.5)
[2016-10-07 09:26] LABS: ANION GAP 10 (5-19); BLOOD UREA NITROGEN 36 mg/dL (7-20); CALCIUM 9.3 mg/dL (8.4-10.2); CARBON DIOXIDE 26 mmol/L (22-30); CHLORIDE 107 mmol/L (98-107); CREATININE RESULT 0.89 mg/dL (0.52-1.25); GLUCOSE 107 mg/dL (75-110); MAGNESIUM 2.5 mg/dL (1.6-2.3); SODIUM 142.8 mmol/L (137-145)
[2016-10-07] MEDS: PANTOPRAZOLE SODIUM 40 MG VIAL IV SCH ×2 (09:54→22:24)
[2016-10-07] MEDS: POTASSI CL 20 MEQ/50 ML RIDER 20 MEQ/50 ML RTUPB IV SCH ×5 (10:25→18:09)
[2016-10-07] MEDS: MORPHINE SULFATE 10 MG/ML INJ IV PRN ×2 (11:26→16:16)
[2016-10-07] MEDS ORDERED: ACETAMINOPHEN 100 ML IV ONE ×2 (11:30→12:15)
[2016-10-07] MEDS ORDERED: CLONIDINE 0.1 MG/24 HR PATCH.TDWK TD SCH (12:00)
[2016-10-07] MEDS: ERTAPENEM SODIUM 1 GM in NORMAL SALINE 50 ML IV SCH (12:57)
--- NOTE | 2016-10-07 16:18 | CONSULTATION REPORT E ---
Consultation Report NAME: GAVIN GUERRA : 1930 AGE: 85Y DATE: 10/07/2016 318 B TO: GAIL PADGETT M.D. FROM: PHILIP WIGGINS M.D. Requesting Physician HISTORY OF PRESENT ILLNESS: The patient is a debilitated 85-year-old gentleman who was admitted with urinary tract sepsis. I was asked to see him because of concern for esophageal stricture. By report, the patient has a stable subdural hygroma and his urinary tract disease is being appropriately treated. Attempts were made to pass a Dobbhoff tube for nutrition; however, barium swallow revealed distal esophageal obstruction. The concern was for the possibility of a percutaneous endoscopic gastrostomy tube. On examination, the patient is sedated and quiet, but has no overt evidence of ongoing aspiration. The significant findings are that of the distal esophageal stricture. The family is not eager to him being followed with any aggressive care and the overall attitude is that the patient's family wished to wait until Monday to reconsider need for any aggressive management. I have expressed to them; however, that percutaneous endoscopic gastrostomy tube would not be indicated because of the distal esophageal obstruction and the overt risk of esophageal perforation. Should a gastrostomy feeding tube be required, then surgical intervention will be needed for either laparoscopic or open gastrostomy tube placement. They again are not eager for any significant surgical intervention. What I have suggested though, is that a nasoesophageal tube be placed to prevent aspiration if the patient indeed does have complete esophageal obstruction. However, on my evaluation, the patient does not seem to be gurgling or having any breath sounds consistent with ongoing aspiration and possibly his distal esophageal obstruction has slightly opened enough to allow swallowing of his constant oropharyngeal secretions. Further recommendations will follow as the patient's family decides to proceed with any further care measures. DICTATING PHYSICIAN: JOHN PADGETT M.D. [id number] PHY#: [id number] ID: [id number] JOB#: [id number] ACCT: [id number] cc:GAIL PADGETT M.D. >
[2016-10-07] MEDS: DEXTROSE 5%-1/2 NORMAL SALINE 1,000 ML IV PRN (18:05)
--- NOTE | 2016-10-07 19:01 | PDOC PROGRESS REPORT ---
Subjective Progress Note for:: 10/07/16 Subjective:: Patient appears much improved today. He is answering questions somewhat appropriately. He does complain of hip pain. Patient denies chest pain, shortness of breath, abdominal pain, headache. Physical Exam Vital Signs: Temp Pulse Resp BP Pulse Ox 97.5 F 78 18 154/77 H 99 10/07/16 04:28 10/07/16 04:28 10/07/16 04:28 10/07/16 04:28 10/07/16 04:00 Intake & Output 10/06/16 10/07/16 10/08/16 06:59 06:59 06:59 Intake Total 2750 2270 Output Total 750 1125 Balance 1999 1145 Weight 68.4 kg 67 kg Exam: General: Awake, alert, and answer some questions and follows some commands, no acute respiratory distress HEENT: Pupils equal round and reactive to light, oropharynx is dry, pink, no scleral icterus, no conjunctival injection Neck: No JVD, trachea midline Chest: Clear to auscultation bilaterally CV: Regular rate and rhythm, normal S1 and S2, no rub, or gallop Abdomen: Soft, nontender to palpation, mildly distended, active bowel sounds; no rebound, rigidity, or guarding Extremities: No cyanosis, clubbing or edema Neuro: Cranial nerves grossly intact, moves all extremities Results Laboratory Results: 10/06/16 08:54 10/06/16 08:54 10/06/16 10/06/16 10/06/16 07:37 08:54 08:54 WBC 17.1 H RBC 3.71 L Hgb 10.9 L Hct 33.8 L MCV 91 MCH 29.3 MCHC 32.2 RDW 15.7 H Plt Count 177 Seg Neutrophils % 89.0 H Lymphocytes % 7.1 L Monocytes % 3.6 Eosinophils % 0.1 Basophils % 0.2 Absolute Neutrophils 15.2 H Absolute Lymphocytes 1.2 Absolute Monocytes 0.6 Absolute Eosinophils 0.0 Absolute Basophils 0.0 Sodium 142.6 Potassium 3.3 L Chloride 105 Carbon Dioxide 24 Anion Gap 14 BUN 40 H Creatinine 1.04 Est GFR ( Amer) > 60 Est GFR (Non-Af Amer) > 60 Glucose 171 H Calcium 9.4 Stool Occult Blood NEGATIVE Impressions: Head CT 10/05/16 00:00 IMPRESSION: Chronic left-sided subdural hematoma/ hygroma with possible acute component given some densities within the in the collection. Overall this is not significantly changed in size comparison the prior study (approximately 1 mm greater in size than on the prior study though this may be defect due to difference in technique. There is [id number]-vw-[id number] midline shift which measures approximately 7 mm which is slightly increased in comparison to the prior study which measures 6 mm but again this may be due to difference in technique. No evidence of herniation. Chest X-Ray 10/05/16 06:00 IMPRESSION: Patchy airspace opacity noted in the left lung base concerning for underlying infiltrate, edema, or aspiration. Correlate clinically. Modified Barium Swallow 10/05/16 07:00 IMPRESSION: NO EVIDENCE OF PENETRATION OR ASPIRATION ALTHOUGH THE STUDY WAS LIMITED DUE TO PATIENT'S CONDITION AND INITIATION OF ONLY 1 SWALLOW OF THIN LIQUIDS. THERE WAS SPILLAGE OVER THE BASE TONGUE INTO THE VALLECULAE AND PIRIFORM SINUSES WHICH REMAIN THROUGHOUT THE ENTIRE STUDY PUTTING THE PATIENT AT HIGH RISK OF ASPIRATION. PLEASE SEE SPEECH PATHOLOGIST REPORT FOR OTHER FINDINGS AND RECOMMENDATIONS. Fluoroscopy 10/06/16 00:00 IMPRESSION: UNSUCCESSFUL PLACEMENT OF A DOBHOFF TUBE DUE TO DISTAL ESOPHAGEAL STRICTURE AND OBSTRUCTION. FINDINGS WERE CALLED TO DR. POLO CARLOS ON 10/06/2016 AT 1118 HOURS. KUB X-Ray 10/06/16 00:00 IMPRESSION: UNSUCCESSFUL PLACEMENT OF A DOBHOFF TUBE DUE TO DISTAL ESOPHAGEAL STRICTURE AND OBSTRUCTION. FINDINGS WERE CALLED TO DR. POLO CARLOS ON 10/06/2016 AT 1118 HOURS. Assessment & Plan - Diagnosis (1) Acute on chronic intracranial subdural hematoma Is this a current diagnosis for this admission?: YesPlan: Have discussed with patient's health care proxy, his daughter, the option of surgery. She reports she does not want him to "have a hole cut in his head at his age." Patient a DNR/DNI. Patient doing well with IV Decadron. Continue this. Repeat CT of the head reveals that this is stabilizing. (2) Sepsis Qualifiers: Sepsis type: sepsis due to unspecified organism Qualified Code(s): A41.9 - Sepsis, unspecified organism Is this a current diagnosis for this admission?: YesPlan: Patient's sepsis possibly due to aspiration pneumonia. (3) Aspiration pneumonia Qualifiers: Aspiration pneumonia type: due to regurgitated food Laterality: left Lung location: lower lobe of lung Qualified Code(s): J69.0 - Pneumonitis due to inhalation of food and vomit Is this a current diagnosis for this admission?: YesPlan: Patient with aspiration pneumonia secondary to dysphagia from subdural hematoma. Patient also found to have distal esophageal stricture. Patient currently on ertapenem and breathing treatments. Unable to obtain sputum specimen. Clinically improving. White count improving. Consider transition to clindamycin. (4) Complicated UTI (urinary tract infection) Is this a current diagnosis for this admission?: YesPlan: Feel this was a presumptive diagnosis as his urine did not grow anything. (5) Acute blood loss anemia Is this a current diagnosis for this admission?: Yes (6) History of right hip hemiarthroplasty Is this a current diagnosis for this admission?: Yes (7) Dysphasia Is this a current diagnosis for this admission?: Yes (8) Dysphagia Qualifiers: Dysphagia type: unspecified Qualified Code(s): R13.10 - Dysphagia, unspecified Is this a current diagnosis for this admission?: YesPlan: Patient has failed modified barium swallow study and family is amenable to the idea of PEG tube. Patient went to have Dobbhoff placed and was found to have a distal esophageal stricture. Discussion with surgery reveals that he is currently not a candidate for further intervention due to the distal esophageal stricture. I did offer the daughter transfer to a tertiary facility or the option to wait until GI is available. And she is elected to wait until GI is available. (9) Dementia Qualifiers: Dementia type: vascular dementia Dementia behavioral disturbance: without behavioral disturbance Qualified Code(s): F01.50 - Vascular dementia without behavioral disturbance Is this a current diagnosis for this admission?: Yes (10) Hyperlipidemia Qualifiers: Hyperlipidemia type: unspecified Qualified Code(s): E78.5 - Hyperlipidemia, unspecified Is this a current diagnosis for this admission?: Yes (11) Hypertension Qualifiers: Hypertension type: essential hypertension Qualified Code(s): I10 - Essential (primary) hypertension Is this a current diagnosis for this admission?: Yes (12) Altered mental status Qualifiers: Altered mental status type: somnolence Qualified Code(s): R40.0 - Somnolence Is this a current diagnosis for this admission?: Yes - Time Time Spent with patient: 25-34 minutes Medications reviewed and adjusted accordingly: Yes
[2016-10-08] MEDS: IPRATROPIUM/ALBUTEROL 0.5-2.5 MG/3 ML AMPUL NEB SCH ×4 (00:03→23:14)
[2016-10-08] MEDS: ENALAPRILAT DIHYDRATE INJ/PF 1.25 MG/1 ML SDV IV SCH ×4 (01:04→17:54)
[2016-10-08] MEDS: DEXAMETHASONE SOD PHOSPHATE INJ 4 MG/1 ML VIAL IV SCH ×3 (05:48→22:43)
[2016-10-08 08:26] LABS: ABSOLUTE LYMPHOCYTES (AUTO) 0.9 10^3/uL (0.5-4.7); ABSOLUTE MONOCYTES (AUTO) 0.6 10^3/uL (0.1-1.4); ABSOLUTE NEUT (AUTO) 13.7 10^3/uL (1.7-8.2); BASOPHILS % (AUTO) 0.1 % (0-2); EOSINOPHILS % (AUTO) 0.1 % (0-6); HEMATOCRIT 29.6 % (37.9-51.0); HEMOGLOBIN 9.5 g/dL (13.5-17.0); HGB HCT DIFFERENCE -1.1; MEAN CORPUSCULAR HEMOGLOBIN 29.4 pg (27.0-33.4); MEAN CORPUSCULAR HGB CONC 32.2 g/dL (32.0-36.0); MEAN CORPUSCULAR VOLUME 91 fl (80-97); MONOCYTES % (AUTO) 3.9 % (3-13); RED BLOOD COUNT 3.24 10^6/uL (4.35-5.55); RED CELL DISTRIBUTION WIDTH 15.5 % (11.5-14.0); SEGMENTED NEUTROPHILS % (AUTO) 89.9 % (42-78); WHITE BLOOD COUNT 15.2 10^3/uL (4.0-10.5)
[2016-10-08] MEDS: DEXTROSE 5%-1/2 NORMAL SALINE 1,000 ML IV PRN (08:30)
[2016-10-08 08:53] LABS: ANION GAP 11 (5-19); BLOOD UREA NITROGEN 36 mg/dL (7-20); CALCIUM 9.3 mg/dL (8.4-10.2); CARBON DIOXIDE 21 mmol/L (22-30); CHLORIDE 109 mmol/L (98-107); CREATININE RESULT 0.99 mg/dL (0.52-1.25); GLUCOSE 114 mg/dL (75-110); SODIUM 140.9 mmol/L (137-145)
[2016-10-08] MEDS: PANTOPRAZOLE SODIUM 40 MG VIAL IV SCH ×2 (10:10→22:44)
[2016-10-08] MEDS ORDERED: BISACODYL 10 MG SUPP.RECT PR PRN (10:10)
[2016-10-08] MEDS ORDERED: ENALAPRILAT DIHYDRATE INJ/PF 1.25 MG/1 ML SDV IV SCH (10:35)
[2016-10-08] MEDS: ERTAPENEM SODIUM 1 GM in NORMAL SALINE 50 ML IV SCH (12:06)
--- NOTE | 2016-10-08 15:08 | PDOC PROGRESS REPORT ---
Subjective Progress Note for:: 10/08/16 Subjective:: Patient is resting comfortably when I see him this morning. He is more lethargic today upon arousal. Patient family present at bedside and care discussed with them. Unable to obtain review of systems secondary to encephalopathy. Physical Exam Vital Signs: Temp Pulse Resp BP Pulse Ox 97.5 F 70 19 153/69 H 75 L 10/08/16 05:10 10/08/16 05:00 10/08/16 05:10 10/08/16 05:10 10/08/16 05:10 Intake & Output 10/07/16 10/08/16 10/09/16 06:59 06:59 06:59 Intake Total 2270 1325 Output Total 1125 800 Balance 1145 525 Weight 67 kg 67.3 kg Exam: General: Resting comfortably, no acute respiratory distress HEENT: Pupils equal round and reactive to light, oropharynx is dry, pink, no scleral icterus, no conjunctival injection Neck: No JVD, trachea midline Chest: Clear to auscultation bilaterally CV: Regular rate and rhythm, normal S1 and S2, no rub, or gallop Abdomen: Soft, nontender to palpation, mildly distended, active bowel sounds; no rebound, rigidity, or guarding Extremities: No cyanosis, clubbing or edema Neuro: Cranial nerves grossly intact, moves all extremities Results Laboratory Results: 10/07/16 08:48 10/07/16 08:48 10/07/16 10/07/16 08:48 08:48 WBC 15.5 H RBC 3.50 L Hgb 10.2 L Hct 31.9 L MCV 91 MCH 29.1 MCHC 32.0 RDW 16.0 H Plt Count 328 Seg Neutrophils % 88.0 H Lymphocytes % 6.5 L Monocytes % 5.2 Eosinophils % 0.1 Basophils % 0.2 Absolute Neutrophils 13.6 H Absolute Lymphocytes 1.0 Absolute Monocytes 0.8 Absolute Eosinophils 0.0 Absolute Basophils 0.0 Sodium 142.8 Potassium 3.0 L* Chloride 107 Carbon Dioxide 26 Anion Gap 10 BUN 36 H Creatinine 0.89 Est GFR ( Amer) > 60 Est GFR (Non-Af Amer) > 60 Glucose 107 Calcium 9.3 Magnesium 2.5 H Impressions: Chest X-Ray 10/05/16 06:00 IMPRESSION: Patchy airspace opacity noted in the left lung base concerning for underlying infiltrate, edema, or aspiration. Correlate clinically. Modified Barium Swallow 10/05/16 07:00 IMPRESSION: NO EVIDENCE OF PENETRATION OR ASPIRATION ALTHOUGH THE STUDY WAS LIMITED DUE TO PATIENT'S CONDITION AND INITIATION OF ONLY 1 SWALLOW OF THIN LIQUIDS. THERE WAS SPILLAGE OVER THE BASE TONGUE INTO THE VALLECULAE AND PIRIFORM SINUSES WHICH REMAIN THROUGHOUT THE ENTIRE STUDY PUTTING THE PATIENT AT HIGH RISK OF ASPIRATION. PLEASE SEE SPEECH PATHOLOGIST REPORT FOR OTHER FINDINGS AND RECOMMENDATIONS. Fluoroscopy 10/06/16 00:00 IMPRESSION: UNSUCCESSFUL PLACEMENT OF A DOBHOFF TUBE DUE TO DISTAL ESOPHAGEAL STRICTURE AND OBSTRUCTION. FINDINGS WERE CALLED TO DR. POLO CARLOS ON 10/06/2016 AT 1118 HOURS. KUB X-Ray 10/06/16 00:00 IMPRESSION: UNSUCCESSFUL PLACEMENT OF A DOBHOFF TUBE DUE TO DISTAL ESOPHAGEAL STRICTURE AND OBSTRUCTION. FINDINGS WERE CALLED TO DR. PLOO CARLOS ON 10/06/[address] 10/07/16 00:00 IMPRESSION: Atrophy and small-vessel ischemic changes. 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 Assessment & Plan - Diagnosis (1) Acute on chronic intracranial subdural hematoma Is this a current diagnosis for this admission?: YesPlan: Have discussed with patient's health care proxy, his daughter, the option of surgery. She reports she does not want him to "have a hole cut in his head at his age." Patient a DNR/DNI. Patient doing well with IV Decadron. Continue this. Repeat CT of the head reveals that this is stabilizing. (2) Sepsis Qualifiers: Sepsis type: sepsis due to unspecified organism Qualified Code(s): A41.9 - Sepsis, unspecified organism Is this a current diagnosis for this admission?: YesPlan: Patient's sepsis possibly due to aspiration pneumonia. (3) Aspiration pneumonia Qualifiers: Aspiration pneumonia type: due to regurgitated food Laterality: left Lung location: lower lobe of lung Qualified Code(s): J69.0 - Pneumonitis due to inhalation of food and vomit Is this a current diagnosis for this admission?: YesPlan: Patient with aspiration pneumonia secondary to dysphagia from subdural hematoma. Patient also found to have distal esophageal stricture. Patient currently on ertapenem and breathing treatments. Unable to obtain sputum specimen. Clinically improving. White count improving. Consider transition to clindamycin. (4) Complicated UTI (urinary tract infection) Is this a current diagnosis for this admission?: Yes (5) Acute blood loss anemia Is this a current diagnosis for this admission?: YesPlan: Stools negative for occult blood. Patient has possibly had a small amount of blood loss into his cranium. Patient likely suffering from acute blood loss anemia due to recent hip surgery. Patient has had an appropriate increase and hemoglobin from 7.3 to 9.9 and stable today at 9.5. (6) History of right hip hemiarthroplasty Is this a current diagnosis for this admission?: Yes (7) Dysphasia Is this a current diagnosis for this admission?: Yes (8) Dysphagia Qualifiers: Dysphagia type: unspecified Qualified Code(s): R13.10 - Dysphagia, unspecified Is this a current diagnosis for this admission?: YesPlan: Patient has failed modified barium swallow study and family is amenable to the idea of PEG tube. Patient went to have Dobbhoff placed and was found to have a distal esophageal stricture. Discussion with surgery reveals that he is currently not a candidate for further intervention due to the distal esophageal stricture. I did offer the daughter transfer to a tertiary facility or the option to wait until GI is available. And she is elected to wait until GI is available. (9) Dementia Qualifiers: Dementia type: vascular dementia Dementia behavioral disturbance: without behavioral disturbance Qualified Code(s): F01.50 - Vascular dementia without behavioral disturbance Is this a current diagnosis for this admission?: YesPlan: Continue supportive care. Will stop Exelon patch. Patient's family reports that he was taking Delsym at home for this. (10) Hyperlipidemia Qualifiers: Hyperlipidemia type: unspecified Qualified Code(s): E78.5 - Hyperlipidemia, unspecified Is this a current diagnosis for this admission?: Yes (11) Hypertension Qualifiers: Hypertension type: essential hypertension Qualified Code(s): I10 - Essential (primary) hypertension Is this a current diagnosis for this admission?: Yes (12) Altered mental status Qualifiers: Altered mental status type: somnolence Qualified Code(s): R40.0 - Somnolence Is this a current diagnosis for this admission?: YesPlan: Improved. Patient's somnolence likely secondary to acute on chronic subdural hematoma and sepsis from aspiration pneumonia. - Time Time Spent with patient: 35 or more minutes Medications reviewed and adjusted accordingly: Yes Anticipated discharge: Acute Rehab
--- NOTE | 2016-10-08 19:03 | PROGRESS NOTE E ---
Progress Note NAME: GAVIN GUERRA : 1930 AGE: 85Y DATE: 10/08/2016 ROOM: 318 SUBJECTIVE: The patient remains with his baseline mental status of dementia and confusion. He is not vocalizing which is no significant change. He does not appear to be salivating beyond the oral cavity, and the concern is that he has distal esophageal obstruction with suction being provided as necessary. Nasal esophageal tube may be of some assistance if he should have further evidence of increasing oropharyngeal secretions. However, the patient seems to be swallowing, and though his upper GI attempts were unsuccessful for passage of contrast through the distal esophageal region, the esophagus may be opening slightly. PLAN: Plan is for gastroenterologic attempts to evaluate the distal esophagus and possibly place a percutaneous gastrostomy feeding tube. Should this be unsuccessful and the patient's family should desire further surgical intervention, then possible laparoscopic gastrostomy feeding tube could be considered. At this time, we will sign off, and if further surgical assistance is necessary, please feel free to contact the surgicalist service. DICTATING PHYSICIAN: JOHN PADGETT M.D. [id number] Y#: [id number] ID: [id number] JOB#: [id number] ACCT: [id number] cc:GAIL PADGETT M.D. >
[2016-10-08] MEDS: MORPHINE SULFATE 10 MG/ML INJ IV PRN (22:44)
[2016-10-09] MEDS: ENALAPRILAT DIHYDRATE INJ/PF 1.25 MG/1 ML SDV IV SCH ×4 (00:56→18:31)
[2016-10-09] MEDS: DEXTROSE 5%-1/2 NORMAL SALINE 1,000 ML IV PRN ×3 (00:58→17:02)
[2016-10-09] MEDS: DEXAMETHASONE SOD PHOSPHATE INJ 4 MG/1 ML VIAL IV SCH ×3 (06:29→22:34)
[2016-10-09] MEDS ORDERED: FUROSEMIDE INJ/PF 20 MG/2 ML SDV IV ONE (07:48)
[2016-10-09] MEDS ORDERED: DEXTROSE 5%-1/2 NORMAL SALINE 1,000 ML IV PRN (07:49)
[2016-10-09] MEDS: HYDRALAZINE HCL INJ/PF 20 MG/1 ML SDV IV PRN (08:12)
[2016-10-09] MEDS: IPRATROPIUM/ALBUTEROL 0.5-2.5 MG/3 ML AMPUL NEB SCH ×3 (08:50→23:22)
[2016-10-09] MEDS: PANTOPRAZOLE SODIUM 40 MG VIAL IV SCH ×2 (10:27→22:36)
[2016-10-09] MEDS: ERTAPENEM SODIUM 1 GM in NORMAL SALINE 50 ML IV SCH (11:16)
[2016-10-09] MEDS: HYDRALAZINE HCL INJ/PF 20 MG/1 ML SDV IV SCH ×2 (14:41→22:36)
--- NOTE | 2016-10-09 16:31 | PDOC PROGRESS REPORT ---
Subjective Progress Note for:: 10/09/16 Physical Exam Vital Signs: Temp Pulse Resp BP Pulse Ox 97.4 F 78 20 172/89 H 100 10/09/16 05:16 10/09/16 05:16 10/09/16 05:16 10/09/16 05:16 10/09/16 05:16 Intake & Output 10/08/16 10/09/16 10/10/16 06:59 06:59 06:59 Intake Total 1325 1699 Output Total 800 1075 Balance 525 624 Weight 67.3 kg 68 kg Exam: General: Awake, alert, and oriented 1 (patient is able to tell me his name), no acute respiratory distress HEENT: Pupils equal round and reactive to light, oropharynx is moist, pink, no scleral icterus, no conjunctival injection Neck: No JVD, trachea midline Chest: Clear to auscultation bilaterally CV: Regular rate and rhythm, normal S1 and S2, no rub or gallop Abdomen: Soft, nontender to palpation, distended, active bowel sounds; no rebound, rigidity, or guarding Extremities: No cyanosis, clubbing; 1+edema Neuro: Cranial nerves grossly intact, moves all extremities Results Laboratory Results: 10/08/16 08:00 10/08/16 08:00 10/08/16 10/08/16 08:00 08:00 WBC 15.2 H RBC 3.24 L Hgb 9.5 L Hct 29.6 L MCV 91 MCH 29.4 MCHC 32.2 RDW 15.5 H Plt Count 327 Seg Neutrophils % 89.9 H Lymphocytes % 6.0 L Monocytes % 3.9 Eosinophils % 0.1 Basophils % 0.1 Absolute Neutrophils 13.7 H Absolute Lymphocytes 0.9 Absolute Monocytes 0.6 Absolute Eosinophils 0.0 Absolute Basophils 0.0 Sodium 140.9 Potassium 4.0 D Chloride 109 H Carbon Dioxide 21 L Anion Gap 11 BUN 36 H Creatinine 0.99 Est GFR ( Amer) > 60 Est GFR (Non-Af Amer) > 60 Glucose 114 H Calcium 9.3 Impressions: Chest X-Ray 10/05/16 06:00 IMPRESSION: Patchy airspace opacity noted in the left lung base concerning for underlying infiltrate, edema, or aspiration. Correlate clinically. Modified Barium Swallow 10/05/16 07:00 IMPRESSION: NO EVIDENCE OF PENETRATION OR ASPIRATION ALTHOUGH THE STUDY WAS LIMITED DUE TO PATIENT'S CONDITION AND INITIATION OF ONLY 1 SWALLOW OF THIN LIQUIDS. THERE WAS SPILLAGE OVER THE BASE TONGUE INTO THE VALLECULAE AND PIRIFORM SINUSES WHICH REMAIN THROUGHOUT THE ENTIRE STUDY PUTTING THE PATIENT AT HIGH RISK OF ASPIRATION. PLEASE SEE SPEECH PATHOLOGIST REPORT FOR OTHER FINDINGS AND RECOMMENDATIONS. Fluoroscopy 10/06/16 00:00 IMPRESSION: UNSUCCESSFUL PLACEMENT OF A DOBHOFF TUBE DUE TO DISTAL ESOPHAGEAL STRICTURE AND OBSTRUCTION. FINDINGS WERE CALLED TO DR. POLO CARLOS ON 10/06/2016 AT 1118 HOURS. KUB X-Ray 10/06/16 00:00 IMPRESSION: UNSUCCESSFUL PLACEMENT OF A DOBHOFF TUBE DUE TO DISTAL ESOPHAGEAL STRICTURE AND OBSTRUCTION. FINDINGS WERE CALLED TO DR. POLO CARLOS ON 10/06/[address] 10/07/16 00:00 IMPRESSION: Atrophy and small-vessel ischemic changes. 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 Assessment & Plan - Diagnosis (1) Acute on chronic intracranial subdural hematoma Is this a current diagnosis for this admission?: YesPlan: Have discussed with patient's health care proxy, his daughter, the option of surgery. She reports she does not want him to "have a hole cut in his head at his age." Patient a DNR/DNI. Patient doing well with IV Decadron. Continue this. Repeat CT of the head reveals that this is stabilizing. Consider repeat CT of the head. (2) Sepsis Qualifiers: Sepsis type: sepsis due to unspecified organism Qualified Code(s): A41.9 - Sepsis, unspecified organism Is this a current diagnosis for this admission?: YesPlan: Patient's sepsis possibly due to aspiration pneumonia. (3) Aspiration pneumonia Qualifiers: Aspiration pneumonia type: due to regurgitated food Laterality: left Lung location: lower lobe of lung Qualified Code(s): J69.0 - Pneumonitis due to inhalation of food and vomit Is this a current diagnosis for this admission?: YesPlan: Patient with aspiration pneumonia secondary to dysphagia from subdural hematoma. Patient also found to have distal esophageal stricture. Patient currently on ertapenem and breathing treatments. Unable to obtain sputum specimen. Clinically improving. White count improving. (4) Complicated UTI (urinary tract infection) Is this a current diagnosis for this admission?: YesPlan: Patient was unlikely to have a UTI. Feel this was a presumptive diagnosis as his urine did not grow anything. (5) Acute blood loss anemia Is this a current diagnosis for this admission?: YesPlan: Stools negative for occult blood. Patient has possibly had a small amount of blood loss into his cranium. Patient likely suffering from acute blood loss anemia due to recent hip surgery. Patient has had an appropriate increase and hemoglobin from 7.3 to 9.9 and stable at 9.5. (6) History of right hip hemiarthroplasty Is this a current diagnosis for this admission?: YesPlan: Consult physical therapy. Patient had surgery within the last 2 weeks that Martha Palma. (7) Dysphasia Is this a current diagnosis for this admission?: Yes (8) Dysphagia Qualifiers: Dysphagia type: unspecified Qualified Code(s): R13.10 - Dysphagia, unspecified Is this a current diagnosis for this admission?: YesPlan: Patient has failed modified barium swallow study and family is amenable to the idea of PEG tube. Patient went to have Dobbhoff placed and was found to have a distal esophageal stricture. Discussion with surgery reveals that he is currently not a candidate for further intervention due to the distal esophageal stricture. I did offer the daughter transfer to a tertiary facility or the option to wait until GI is available. And she has elected to wait until GI is available. Will consult Dr. Weiss tomorrow. (9) Dementia Qualifiers: Dementia type: vascular dementia Dementia behavioral disturbance: without behavioral disturbance Qualified Code(s): F01.50 - Vascular dementia without behavioral disturbance Is this a current diagnosis for this admission?: Yes (10) Hyperlipidemia Qualifiers: Hyperlipidemia type: unspecified Qualified Code(s): E78.5 - Hyperlipidemia, unspecified Is this a current diagnosis for this admission?: Yes (11) Hypertension Qualifiers: Hypertension type: essential hypertension Qualified Code(s): I10 - Essential (primary) hypertension Is this a current diagnosis for this admission?: YesPlan: Patient is apparently taking no medication for his hypertension as an outpatient. Patient on clonidine patch, scheduled hydralazine, when necessary hydralazine. Have given a one-time dose of Lasix today as patient appears to be mildly volume overloaded. (12) Altered mental status Qualifiers: Altered mental status type: somnolence Qualified Code(s): R40.0 - Somnolence Is this a current diagnosis for this admission?: YesPlan: Improved. Patient's somnolence/AMS likely secondary to acute on chronic subdural hematoma and sepsis from aspiration pneumonia. - Time Time Spent with patient: 25-34 minutes Medications reviewed and adjusted accordingly: Yes Anticipated discharge: Acute Rehab
[2016-10-09] MEDS: MORPHINE SULFATE 10 MG/ML INJ IV PRN (22:36)
[2016-10-10] MEDS: ENALAPRILAT DIHYDRATE INJ/PF 1.25 MG/1 ML SDV IV SCH ×4 (01:04→18:58)
[2016-10-10] MEDS: HYDRALAZINE HCL INJ/PF 20 MG/1 ML SDV IV SCH ×3 (06:40→23:17)
[2016-10-10] MEDS: DEXAMETHASONE SOD PHOSPHATE INJ 4 MG/1 ML VIAL IV SCH ×3 (06:42→23:16)
[2016-10-10 07:45] LABS: HEMATOCRIT 31.3 % (37.9-51.0); HEMOGLOBIN 10.2 g/dL (13.5-17.0); HGB HCT DIFFERENCE -0.7; MEAN CORPUSCULAR HEMOGLOBIN 29.5 pg (27.0-33.4); MEAN CORPUSCULAR HGB CONC 32.5 g/dL (32.0-36.0); MEAN CORPUSCULAR VOLUME 91 fl (80-97); RED BLOOD COUNT 3.44 10^6/uL (4.35-5.55); WHITE BLOOD COUNT 14.9 10^3/uL (4.0-10.5)
[2016-10-10 07:46] LABS: ANION GAP 10 (5-19); BLOOD UREA NITROGEN 32 mg/dL (7-20); CALCIUM 9.1 mg/dL (8.4-10.2); CARBON DIOXIDE 24 mmol/L (22-30); CHLORIDE 107 mmol/L (98-107); CREATININE RESULT 0.79 mg/dL (0.52-1.25); GLUCOSE 96 mg/dL (75-110); MAGNESIUM 2.1 mg/dL (1.6-2.3); POTASSIUM 4.3 mmol/L (3.6-5.0); SODIUM 140.5 mmol/L (137-145)
[2016-10-10 08:09] LABS: BASOPHILS % (MANUAL) 0 % (0-2); EOSINOPHILS % (MANUAL) 0 % (0-6); LYMPHOCYTES % (MANUAL) 7 % (13-45); TOTAL CELLS COUNTED 100
[2016-10-10 08:10] LABS: ANISOCYTOSIS 1+; PLATELET CLUMPS PRESENT; POLYCHROMASIA 1+; TOXIC GRANULATION 1+; TOXIC VACUOLATION PRESENT
[2016-10-10] MEDS: IPRATROPIUM/ALBUTEROL 0.5-2.5 MG/3 ML AMPUL NEB SCH ×2 (08:15→16:17)
[2016-10-10] MEDS: DEXTROSE 5%-1/2 NORMAL SALINE 1,000 ML IV PRN (08:29)
[2016-10-10] MEDS: PANTOPRAZOLE SODIUM 40 MG VIAL IV SCH (09:54)
--- NOTE | 2016-10-10 10:21 | PDOC PROGRESS REPORT ---
Subjective Progress Note for:: 10/10/16 Subjective:: Patient very sleepy then arouses with stimulation. He is not gurgling at this time or reducing any other abnormal breathing sounds. Physical Exam Vital Signs: Temp Pulse Resp BP Pulse Ox 97.3 F 75 20 118/65 100 10/10/16 07:27 10/10/16 07:27 10/10/16 07:27 10/10/16 07:27 10/10/16 07:27 Intake & Output 10/09/16 10/10/16 10/11/16 06:59 06:59 06:59 Intake Total 1699 1403 Output Total 1075 1900 Balance 624 -497 Weight 68 kg 72.2 kg General appearance: PRESENT: no acute distress Respiratory exam: PRESENT: other - Bilateral rhonchi. GI/Abdominal exam: PRESENT: other - Moderately distended, tympanitic, hypoactive bowel sounds. Results Laboratory Results: 10/10/16 07:26 10/10/16 07:26 10/10/16 10/10/16 10/10/16 05:50 05:50 07:26 WBC Cancelled 14.9 H RBC Cancelled 3.44 L Hgb Cancelled 10.2 L Hct Cancelled 31.3 L MCV Cancelled 91 MCH Cancelled 29.5 MCHC Cancelled 32.5 RDW Cancelled 16.0 H Plt Count Cancelled 286 Seg Neutrophils % Cancelled Not Reportable Lymphocytes % Cancelled Not Reportable Monocytes % Cancelled Not Reportable Eosinophils % Cancelled Not Reportable Basophils % Cancelled Not Reportable Absolute Neutrophils Cancelled Not Reportable Absolute Lymphocytes Cancelled Not Reportable Absolute Monocytes Cancelled Not Reportable Absolute Eosinophils Cancelled Not Reportable Absolute Basophils Cancelled Not Reportable Sodium Cancelled Potassium Cancelled Chloride Cancelled Carbon Dioxide Cancelled Anion Gap Cancelled BUN Cancelled Creatinine Cancelled Est GFR ( Amer) Cancelled Est GFR (Non-Af Amer) Cancelled Glucose Cancelled Calcium Cancelled Magnesium Cancelled 10/10/16 07:26 WBC RBC Hgb Hct MCV MCH MCHC RDW Plt Count Seg Neutrophils % Lymphocytes % Monocytes % Eosinophils % Basophils % Absolute Neutrophils Absolute Lymphocytes Absolute Monocytes Absolute Eosinophils Absolute Basophils Sodium 140.5 Potassium 4.3 Chloride 107 Carbon Dioxide 24 Anion Gap 10 BUN 32 H Creatinine 0.79 Est GFR ( Amer) > 60 Est GFR (Non-Af Amer) > 60 Glucose 96 Calcium 9.1 Magnesium 2.1 Impressions: Chest X-Ray 10/05/16 06:00 IMPRESSION: Patchy airspace opacity noted in the left lung base concerning for underlying infiltrate, edema, or aspiration. Correlate clinically. Modified Barium Swallow 10/05/16 07:00 IMPRESSION: NO EVIDENCE OF PENETRATION OR ASPIRATION ALTHOUGH THE STUDY WAS LIMITED DUE TO PATIENT'S CONDITION AND INITIATION OF ONLY 1 SWALLOW OF THIN LIQUIDS. THERE WAS SPILLAGE OVER THE BASE TONGUE INTO THE VALLECULAE AND PIRIFORM SINUSES WHICH REMAIN THROUGHOUT THE ENTIRE STUDY PUTTING THE PATIENT AT HIGH RISK OF ASPIRATION. PLEASE SEE SPEECH PATHOLOGIST REPORT FOR OTHER FINDINGS AND RECOMMENDATIONS. Fluoroscopy 10/06/16 00:00 IMPRESSION: UNSUCCESSFUL PLACEMENT OF A DOBHOFF TUBE DUE TO DISTAL ESOPHAGEAL STRICTURE AND OBSTRUCTION. FINDINGS WERE CALLED TO DR. POLO CARLOS ON 10/06/2016 AT 1118 HOURS. KUB X-Ray 10/06/16 00:00 IMPRESSION: UNSUCCESSFUL PLACEMENT OF A DOBHOFF TUBE DUE TO DISTAL ESOPHAGEAL STRICTURE AND OBSTRUCTION. FINDINGS WERE CALLED TO DR. POLO CARLOS ON 10/06/[address] 10/07/16 00:00 IMPRESSION: Atrophy and small-vessel ischemic changes. 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 Assessment & Plan - Diagnosis (1) Esophageal stricture Is this a current diagnosis for this admission?: YesPlan: 1. My impression is that this is a very complex patient with a constellation of acute superimposed on chronic medical problems. By contrast study, the patient has a near complete distal esophageal stricture of unknown etiology. The patient's daughter, he apparently has a remote history of tuberculosis. Over the last several months he's had difficulty him all with probable dysphagia although due to patient's dementia, this could not be clearly articulated. He has had a recent ENT evaluation which was unremarkable. He has not had an EGD in the recent past. She has been having a lot of excessive drooling prior to his all 2-1/2 weeks ago. I have discussed the patient's situation with Dr. Wong, the patient's daughter who is the patient's healthcare power of deputy commonwealth's attorney. I have suggested we obtain CT scan of the chest to further clarify the possible cause of the patient's distal esophageal stricture. Additional studies including EGD, possible esophageal dilatation are to be considered, however risks may be significant. 2. The patient has a ileus, exact etiology undetermined, but likely multifactorial. He is not in suitable condition for an open procedure such as a operative gastrostomy until the ileus stabilizes. 3. Clearly this patient has a number of co morbidities that will make any intervention especially involving the esophagus risky. This was explained to the patient's daughter this morning. The patient is a DO NOT RESUSCITATE.
[2016-10-10] MEDS: ERTAPENEM SODIUM 1 GM in NORMAL SALINE 50 ML IV SCH (12:34)
--- NOTE | 2016-10-10 13:36 | PDOC CONSULTATION ---
Consultation Consult Date: 10/10/16 Attending physician:: BOBBY SOTO Consult reason:: abnormal finding on imaging. ? esophageal stricture. GERD. difficulty feeding,? need PEG History of Present Illness Admission Date/PCP: 10/03/16 20:10 GLADYS CARVAJAL MD History of Present Illness: Patient with underlying dementia noted to have acute change in his mental status due to subdural hematoma has a history of GERD patient used to eat without any difficulty worsening dysphagia now has aspiration unable to quantify any weight loss patient has possible esophageal stricture ? etiology may need dilation however if cannot pass, will need open gastrostomy tube placement Past Medical History Cardiac Medical History: Reports: Hyperlipidema, Hypertension Renal/ Medical History: Reports: Other - UTI GI Medical History: Reports: Gastroesophageal Reflux Disease Past Surgical History Past Surgical History: Reports: Appendectomy, Herniorrhaphy, Orthopedic Surgery - R THR Social History Smoking Status: Former Smoker Last Time Smoked: 1969 Frequency of Alcohol Use: Occasional Hx Recreational Drug Use: No Hx Prescription Drug Abuse: No - Advance Directive Resuscitation Status: Full Code Family History Family History: Reviewed & Not Pertinent Parental Family History Reviewed: Yes Children Family History Reviewed: Unknown Sibling(s) Family History Reviewed.: Unknown Medication/Allergy Home Medications: Allopurinol [Zyloprim 300 mg Tablet] 300 mg PO DAILY 10/03/16 Aspirin [Aspirin 325 mg Tablet] 325 mg PO DAILY 10/03/16 Cholecalciferol (Vitamin D3) [Vitamin D3 5000 unit Capsule] 5,000 unit PO DAILY 10/03/16 Cyanocobalamin (Vitamin B-12) [Vitamin B12] 2,500 mcg PO DAILY 10/03/16 Dextromethorphan HBr [Delsym] 30 mg PO Q6 10/03/16 Iron Polysaccharide Complex [Polysaccharide Iron 150] 150 mg PO DAILY 10/03/16 Omeprazole 40 mg PO BIDACBS 10/03/16 Allergies/Adverse Reactions: sulfamethoxazole [From Bactrim] Allergy (Verified 07/04/16 21:04) trimethoprim [From Bactrim] Allergy (Verified 07/04/16 21:04) Review of Systems Constitutional: PRESENT: weakness. ABSENT: fever(s), headache(s), night sweats Eyes: ABSENT: visual disturbances Nose, Mouth, and Throat: ABSENT: mouth pain Respiratory: ABSENT: dyspnea, hemoptysis Gastrointestinal: PRESENT: dysphagia, heartburn. ABSENT: diarrhea, hematemesis Genitourinary: ABSENT: dysuria, hematuria Musculoskeletal: ABSENT: deformity, joint swelling Integumentary: ABSENT: lesions, pruritus Neurological: ABSENT: syncope, tingling, tremor(s), vertigo Endocrine: ABSENT: polydipsia, polyphagia, polyuria Hematologic/Lymphatic: ABSENT: easy bruising Physical Exam Vital Signs: Temp Pulse Resp BP Pulse Ox 97.3 F 81 18 160/85 H 100 10/10/16 11:04 10/10/16 11:04 10/10/16 11:04 10/10/16 11:04 10/10/16 11:04 Intake & Output 10/09/16 10/10/16 10/11/16 06:59 06:59 06:59 Intake Total 1699 1403 Output Total 1075 1900 Balance 624 -497 Weight 68 kg 72.2 kg General appearance: PRESENT: no acute distress Head exam: PRESENT: atraumatic, normocephalic Eye exam: PRESENT: EOMI, PERRLA. ABSENT: conjunctival injection, nystagmus, periorbital swelling, scleral icterus Mouth exam: PRESENT: moist Throat exam: ABSENT: tonsillar exudate, tonsillogmegaly Neck exam: ABSENT: meningismus, tenderness, thyromegaly Respiratory exam: PRESENT: symmetrical, tachypnea. ABSENT: wheezes Cardiovascular exam: PRESENT: RRR, +S1, +S2 GI/Abdominal exam: PRESENT: normal bowel sounds, soft. ABSENT: Paulson's sign, rebound, rigid, tenderness Extremities exam: ABSENT: joint swelling Musculoskeletal exam: PRESENT: full ROM Neurological exam: PRESENT: CN II-XII grossly intact Skin exam: PRESENT: normal color. ABSENT: mottled, pallor, petechiae, urticaria , vesicles Results Laboratory Results: 10/10/16 07:26 10/10/16 07:26 10/10/16 10/10/16 10/10/16 05:50 05:50 07:26 WBC Cancelled 14.9 H RBC Cancelled 3.44 L Hgb Cancelled 10.2 L Hct Cancelled 31.3 L MCV Cancelled 91 MCH Cancelled 29.5 MCHC Cancelled 32.5 RDW Cancelled 16.0 H Plt Count Cancelled 286 Seg Neutrophils % Cancelled Not Reportable Lymphocytes % Cancelled Not Reportable Monocytes % Cancelled Not Reportable Eosinophils % Cancelled Not Reportable Basophils % Cancelled Not Reportable Absolute Neutrophils Cancelled Not Reportable Absolute Lymphocytes Cancelled Not Reportable Absolute Monocytes Cancelled Not Reportable Absolute Eosinophils Cancelled Not Reportable Absolute Basophils Cancelled Not Reportable Sodium Cancelled Potassium Cancelled Chloride Cancelled Carbon Dioxide Cancelled Anion Gap Cancelled BUN Cancelled Creatinine Cancelled Est GFR ( Amer) Cancelled Est GFR (Non-Af Amer) Cancelled Glucose Cancelled Calcium Cancelled Magnesium Cancelled 10/10/16 07:26 WBC RBC Hgb Hct MCV MCH MCHC RDW Plt Count Seg Neutrophils % Lymphocytes % Monocytes % Eosinophils % Basophils % Absolute Neutrophils Absolute Lymphocytes Absolute Monocytes Absolute Eosinophils Absolute Basophils Sodium 140.5 Potassium 4.3 Chloride 107 Carbon Dioxide 24 Anion Gap 10 BUN 32 H Creatinine 0.79 Est GFR ( Amer) > 60 Est GFR (Non-Af Amer) > 60 Glucose 96 Calcium 9.1 Magnesium 2.1 Impressions: Chest X-Ray 10/05/16 06:00 IMPRESSION: Patchy airspace opacity noted in the left lung base concerning for underlying infiltrate, edema, or aspiration. Correlate clinically. Modified Barium Swallow 10/05/16 07:00 IMPRESSION: NO EVIDENCE OF PENETRATION OR ASPIRATION ALTHOUGH THE STUDY WAS LIMITED DUE TO PATIENT'S CONDITION AND INITIATION OF ONLY 1 SWALLOW OF THIN LIQUIDS. THERE WAS SPILLAGE OVER THE BASE TONGUE INTO THE VALLECULAE AND PIRIFORM SINUSES WHICH REMAIN THROUGHOUT THE ENTIRE STUDY PUTTING THE PATIENT AT HIGH RISK OF ASPIRATION. PLEASE SEE SPEECH PATHOLOGIST REPORT FOR OTHER FINDINGS AND RECOMMENDATIONS. Fluoroscopy 10/06/16 00:00 IMPRESSION: UNSUCCESSFUL PLACEMENT OF A DOBHOFF TUBE DUE TO DISTAL ESOPHAGEAL STRICTURE AND OBSTRUCTION. FINDINGS WERE CALLED TO DR. POLO CARLOS ON 10/06/2016 AT 1118 HOURS. KUB X-Ray 10/06/16 00:00 IMPRESSION: UNSUCCESSFUL PLACEMENT OF A DOBHOFF TUBE DUE TO DISTAL ESOPHAGEAL STRICTURE AND OBSTRUCTION. FINDINGS WERE CALLED TO DR. POLO CARLOS ON 10/06/[address] 10/07/16 00:00 IMPRESSION: Atrophy and small-vessel ischemic changes. 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 Assessment & Plan - Diagnosis (1) Anemia Qualifiers: Anemia type: other cause Other causes of anemia: acute posthemorrhagic Qualified Code(s): D62 - Acute posthemorrhagic anemia Is this a current diagnosis for this admission?: YesPlan: Seems chronic likely multifactorial etiology follow up as needed (2) Dysphagia Qualifiers: Dysphagia type: unspecified Qualified Code(s): R13.10 - Dysphagia, unspecified Is this a current diagnosis for this admission?: YesPlan: will need EGD will wait on CT scan of chest surgery on board ? possible esophageal stricture, vs malignancy Risks, benefits and alternatives are explained to the patient in detail Further recommendations to follow if cannot pass scope, will need open gastrostomy tube placement done by surgery (3) Esophageal stricture Is this a current diagnosis for this admission?: YesPlan: does have history of GERD may need dilation if it is something that can be dilated, then hopefully can avoid PEG and place feeding tube and hope mental status returns to baseline - Time Time Spent: 50 to 70 Minutes
--- NOTE | 2016-10-10 21:40 | PDOC PROGRESS REPORT ---
Subjective Progress Note for:: 10/10/16 Subjective:: Patient is resting comfortably when I see him this morning. Unable to obtain review of systems secondary to encephalopathy. No acute events overnight. Physical Exam Vital Signs: Temp Pulse Resp BP Pulse Ox 97.6 F 81 18 147/85 H 100 10/09/16 23:35 10/10/16 03:18 10/10/16 03:18 10/10/16 03:18 10/10/16 03:18 Intake & Output 10/09/16 10/10/16 10/11/16 06:59 06:59 06:59 Intake Total 1699 1403 Output Total 1075 1900 Balance 624 -497 Weight 68 kg 72.2 kg Exam: General: Arouses and follows commands, no acute respiratory distress HEENT: Pupils equal round and reactive to light, oropharynx is moist, pink, no scleral icterus, no conjunctival injection Neck: No JVD, trachea midline Chest: Clear to auscultation bilaterally, diminished bases bilaterally CV: Regular rate and rhythm, normal S1 and S2, no rub or gallop Abdomen: Soft, nontender to palpation, distended, active bowel sounds; no rebound, rigidity, or guarding Extremities: No cyanosis, clubbing; trace edema Neuro: Cranial nerves grossly intact, moves all extremities Results Laboratory Results: 10/10/16 10/10/16 05:50 05:50 WBC Cancelled RBC Cancelled Hgb Cancelled Hct Cancelled MCV Cancelled MCH Cancelled MCHC Cancelled RDW Cancelled Plt Count Cancelled Seg Neutrophils % Cancelled Lymphocytes % Cancelled Monocytes % Cancelled Eosinophils % Cancelled Basophils % Cancelled Absolute Neutrophils Cancelled Absolute Lymphocytes Cancelled Absolute Monocytes Cancelled Absolute Eosinophils Cancelled Absolute Basophils Cancelled Sodium Cancelled Potassium Cancelled Chloride Cancelled Carbon Dioxide Cancelled Anion Gap Cancelled BUN Cancelled Creatinine Cancelled Est GFR ( Amer) Cancelled Est GFR (Non-Af Amer) Cancelled Glucose Cancelled Calcium Cancelled Magnesium Cancelled Impressions: Chest X-Ray 10/05/16 06:00 IMPRESSION: Patchy airspace opacity noted in the left lung base concerning for underlying infiltrate, edema, or aspiration. Correlate clinically. Modified Barium Swallow 10/05/16 07:00 IMPRESSION: NO EVIDENCE OF PENETRATION OR ASPIRATION ALTHOUGH THE STUDY WAS LIMITED DUE TO PATIENT'S CONDITION AND INITIATION OF ONLY 1 SWALLOW OF THIN LIQUIDS. THERE WAS SPILLAGE OVER THE BASE TONGUE INTO THE VALLECULAE AND PIRIFORM SINUSES WHICH REMAIN THROUGHOUT THE ENTIRE STUDY PUTTING THE PATIENT AT HIGH RISK OF ASPIRATION. PLEASE SEE SPEECH PATHOLOGIST REPORT FOR OTHER FINDINGS AND RECOMMENDATIONS. Fluoroscopy 10/06/16 00:00 IMPRESSION: UNSUCCESSFUL PLACEMENT OF A DOBHOFF TUBE DUE TO DISTAL ESOPHAGEAL STRICTURE AND OBSTRUCTION. FINDINGS WERE CALLED TO DR. POLO CARLOS ON 10/06/2016 AT 1118 HOURS. KUB X-Ray 10/06/16 00:00 IMPRESSION: UNSUCCESSFUL PLACEMENT OF A DOBHOFF TUBE DUE TO DISTAL ESOPHAGEAL STRICTURE AND OBSTRUCTION. FINDINGS WERE CALLED TO DR. POLO CARLOS ON 10/06/[address] 10/07/16 00:00 IMPRESSION: Atrophy and small-vessel ischemic changes. 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 Assessment & Plan - Diagnosis (1) Acute on chronic intracranial subdural hematoma Is this a current diagnosis for this admission?: YesPlan: Have discussed with patient's health care proxy, his daughter, the option of surgery. She reports she does not want him to "have a hole cut in his head at his age." Patient a DNR/DNI. Today is day 7 of IV Decadron. Will stop tomorrow. Repeat head CT tomorrow. Repeat CT of the head reveals that this is stabilizing. Did discuss this with Dr. Han from [facility] neurosurgery who recommended 7 days of Decadron. (2) Dysphagia Qualifiers: Dysphagia type: unspecified Qualified Code(s): R13.10 - Dysphagia, unspecified Is this a current diagnosis for this admission?: YesPlan: Patient has failed modified barium swallow study and family is amenable to the idea of PEG tube. Patient went to have Dobbhoff placed and was found to have a distal esophageal stricture. Will obtain a CT of the chest after discussion with Dr. Winchester surgery. Have consulted Dr. Weiss for upper endoscopy. (3) Sepsis Qualifiers: Sepsis type: sepsis due to unspecified organism Qualified Code(s): A41.9 - Sepsis, unspecified organism Is this a current diagnosis for this admission?: YesPlan: Patient's sepsis possibly due to aspiration pneumonia. (4) Aspiration pneumonia Qualifiers: Aspiration pneumonia type: due to regurgitated food Laterality: left Lung location: lower lobe of lung Qualified Code(s): J69.0 - Pneumonitis due to inhalation of food and vomit Is this a current diagnosis for this admission?: YesPlan: Patient with aspiration pneumonia secondary to dysphagia from subdural hematoma. Patient also found to have distal esophageal stricture. Patient currently on ertapenem and breathing treatments. Unable to obtain sputum specimen. Clinically improving. White count improving. (5) Complicated UTI (urinary tract infection) Is this a current diagnosis for this admission?: YesPlan: Patient was unlikely to have a UTI. Feel this was a presumptive diagnosis as his urine did not grow anything. (6) Acute blood loss anemia Is this a current diagnosis for this admission?: YesPlan: Stools negative for occult blood. Patient has possibly had a small amount of blood loss into his cranium. Patient likely suffering from acute blood loss anemia due to recent hip surgery. Patient has had an appropriate increase and hemoglobin from 7.3 to 9.9 and stable at 9.5. (7) History of right hip hemiarthroplasty Is this a current diagnosis for this admission?: YesPlan: Consult physical therapy. Patient had surgery within the last 2 weeks that Martha Palma. (8) Dysphasia Is this a current diagnosis for this admission?: Yes (9) Dementia Qualifiers: Dementia type: vascular dementia Dementia behavioral disturbance: without behavioral disturbance Qualified Code(s): F01.50 - Vascular dementia without behavioral disturbance Is this a current diagnosis for this admission?: Yes (10) Hyperlipidemia Qualifiers: Hyperlipidemia type: unspecified Qualified Code(s): E78.5 - Hyperlipidemia, unspecified Is this a current diagnosis for this admission?: Yes (11) Hypertension Qualifiers: Hypertension type: essential hypertension Qualified Code(s): I10 - Essential (primary) hypertension Is this a current diagnosis for this admission?: YesPlan: Patient is apparently taking no medication for his hypertension as an outpatient. Patient on clonidine patch, scheduled hydralazine, when necessary hydralazine. Have given a one-time dose of Lasix today as patient appears to be mildly volume overloaded. (12) Altered mental status Qualifiers: Altered mental status type: somnolence Qualified Code(s): R40.0 - Somnolence Is this a current diagnosis for this admission?: YesPlan: Improved. Patient's somnolence/AMS likely secondary to acute on chronic subdural hematoma and sepsis from aspiration pneumonia. - Time Time Spent with patient: 35 or more minutes Medications reviewed and adjusted accordingly: Yes
[2016-10-11] MEDS: IPRATROPIUM/ALBUTEROL 0.5-2.5 MG/3 ML AMPUL NEB SCH ×3 (00:35→15:55)
[2016-10-11] MEDS: ENALAPRILAT DIHYDRATE INJ/PF 1.25 MG/1 ML SDV IV SCH ×4 (01:59→19:21)
[2016-10-11] MEDS: DEXAMETHASONE SOD PHOSPHATE INJ 4 MG/1 ML VIAL IV SCH (05:51)
[2016-10-11] MEDS: HYDRALAZINE HCL INJ/PF 20 MG/1 ML SDV IV SCH ×3 (05:51→21:51)
[2016-10-11 06:02] LABS: ABSOLUTE MONOCYTES (AUTO) 0.6 10^3/uL (0.1-1.4); ABSOLUTE NEUT (AUTO) 12.3 10^3/uL (1.7-8.2); BASOPHILS % (AUTO) 0.2 % (0-2); HEMATOCRIT 31.3 % (37.9-51.0); HEMOGLOBIN 10.2 g/dL (13.5-17.0); HGB HCT DIFFERENCE -0.7; LYMPHOCYTES % (AUTO) 7.1 % (13-45); MEAN CORPUSCULAR HEMOGLOBIN 29.6 pg (27.0-33.4); MEAN CORPUSCULAR HGB CONC 32.5 g/dL (32.0-36.0); MEAN CORPUSCULAR VOLUME 91 fl (80-97); MONOCYTES % (AUTO) 4.6 % (3-13); RED BLOOD COUNT 3.43 10^6/uL (4.35-5.55); RED CELL DISTRIBUTION WIDTH 16.1 % (11.5-14.0); SEGMENTED NEUTROPHILS % (AUTO) 88.1 % (42-78); WHITE BLOOD COUNT 13.9 10^3/uL (4.0-10.5)
[2016-10-11 06:04] LABS: ANION GAP 9 (5-19); BLOOD UREA NITROGEN 33 mg/dL (7-20); CALCIUM 9.3 mg/dL (8.4-10.2); CARBON DIOXIDE 22 mmol/L (22-30); CHLORIDE 110 mmol/L (98-107); CREATININE RESULT 0.76 mg/dL (0.52-1.25); GLUCOSE 99 mg/dL (75-110); POTASSIUM 4.2 mmol/L (3.6-5.0)
[2016-10-11] MEDS ORDERED: DIPHENHYDRAMINE HCL 50 MG/ML VIAL ONE (11:18)
[2016-10-11] MEDS ORDERED: NALOXONE HCL INJ/PF 0.4 MG/1 ML SDV ONE (11:18)
[2016-10-11] MEDS ORDERED: ONDANSETRON HCL INJ/PF 4 MG/2 ML SDV ONE (11:19)
[2016-10-11] MEDS ORDERED: GLUCAGON,HUMAN RECOMB 1 MG INJ ONE (11:19)
[2016-10-11] MEDS ORDERED: FENTANYL CITRATE INJ/PF 100 MCG/2 ML AMPUL ONE (11:19)
[2016-10-11] MEDS ORDERED: EPINEPHRINE INJ 1 MG/10 ML DISP.SYRIN ONE (11:19)
[2016-10-11] MEDS ORDERED: FLUMAZENIL INJ 0.5 MG/5 ML VIAL IV ONE (11:19)
[2016-10-11] MEDS ORDERED: MIDAZOLAM 2 MG/2 ML INJ ONE (11:19)
[2016-10-11] MEDS ORDERED: PROMETHAZINE HCL INJ 25 MG/1 ML VIAL ONE (11:19)
[2016-10-11] MEDS: ERTAPENEM SODIUM 1 GM in NORMAL SALINE 50 ML IV SCH (11:49)
--- NOTE | 2016-10-11 13:08 | Operative Report ---
Operative Report DATE OF SURGERY: 10/11/16 Operative Report: The risks benefits and alternatives of the procedure explained to the patient in detail and informed consent is obtained that GIF Olympus video scope was inserted into the patient's mouth and hypopharynx the esophagus is identified intubated and insufflated the scope was then advanced through the esophagus stomach and duodenum retroflexion maneuver is done the esophagus stomach and first and second portions of the duodenum examined PREOPERATIVE DIAGNOSIS: Abnormal imaging suggesting a stricture POSTOPERATIVE DIAGNOSIS: Normal esophagus. Large hiatal hernia, paraesophageal hernia subtype. Gastritis OPERATION: EGD with biopsy SURGEON: BOBBY SOTO ANESTHESIA: Moderate Sedation - 2 mg Versed TISSUE REMOVED OR ALTERED: Gastric mucosal specimen rule out Helicobacter pylori COMPLICATIONS: None. ESTIMATED BLOOD LOSS: none. INTRAOPERATIVE FINDINGS: No esophageal stricture or mucosal lesion noted. paraesophageal-type hiatal hernia. Gastritis PROCEDURE: Patient tolerated the procedure well. No immediate postprocedure complications are noted. Patient was sent back to his room in good condition. We will await on biopsies. Case discussed with family if they do desire feeding tube will have to be a surgical jejunostomy since the majority of his stomach is in his thoracic cavity Discuss with Dr. Mariano
[2016-10-11] MEDS: DEXTROSE 5%-1/2 NORMAL SALINE 1,000 ML IV PRN (13:26)
[2016-10-11] MEDS: MORPHINE SULFATE 10 MG/ML INJ IV PRN (16:40)
--- NOTE | 2016-10-11 18:44 | PROGRESS NOTE E ---
Progress Note NAME: GAVIN GUERRA : 1930 AGE: 85Y DATE: 10/11/2016 ROOM: 318 The patient has dysphagia with a possible distal esophageal stenosis. SUBJECTIVE: The patient has dementia and is awake but does not respond. OBJECTIVE: The patient's abdomen is soft, nondistended, nontender. ASSESSMENT: 1. DYSPHAGIA WITH POSSIBLE DISTAL ESOPHAGEAL STRICTURE. Patient just had underwent an upper endoscopy with biopsy. This showed a large paraesophageal hernia with some gastritis being present. There is no obvious obstruction being present. 2. ENLARGING SUBDURAL HEMATOMA WITH PATIENT BEING DNR AND DEMENTIA. PLAN: At the current time, his nutrition can only be given through the intestinal tract; however, a PEG tube cannot be performed due to large paraesophageal hernia being present. Placing a feeding tube at the time of EGD since it was not able to be done radiographically is only a short-term solution and not long-term. Therefore, surgical jejunostomy would be an option for long-term feeding; however, with his subdural hematoma, I feel that if his family should decide knowing with the jejunostomy tube he would need to go to a tertiary center to be evaluated by Neurosurgery and followup with Neurology if he has a general anesthesia. We will talk with the family in the morning to see what their wishes would be. DICTATING PHYSICIAN: JOSELUIS GUPTA M.D. [id number] LUCIANO#: [id number] ID: [id number] JOB#: [id number] ACCT: [id number] cc: >
--- NOTE | 2016-10-11 18:59 | PDOC PROGRESS REPORT ---
Subjective Progress Note for:: 10/11/16 Subjective:: Patient was unable to have PEG tube placement today secondary to large hiatal hernia according to Dr. Weiss of GI. If enteral feeding is required/desired by family patient will need to have J-tube placed by surgery. I'm unable to obtain history from patient secondary to encephalopathy/dementia. Physical Exam Vital Signs: Temp Pulse Resp BP Pulse Ox 97.4 F 72 18 148/77 H 100 10/11/16 15:40 10/11/16 15:55 10/11/16 15:55 10/11/16 15:40 10/11/16 15:55 Intake & Output 10/10/16 10/11/16 10/12/16 06:59 06:59 06:59 Intake Total 1403 1605 400 Output Total 1900 1500 800 Balance -497 105 -400 Weight 72.2 kg 74.8 kg 74.8 kg GENERAL: Nonverbal, moans randomly HEENT: Conjunctiva clear, nonicteric, moist mucous membranes, no JVD, midline trachea RESPIRATORY: Clear to auscultation bilaterally, no wheezes, no rhonchi CARDIAC: Regular rate and rhythm, no murmurs/gallops/rubs ABDOMEN: Soft, nondistended, nontender, positive bowel sounds, no rebound, no guarding EXTREMETIES: No edema, cyanosis, clubbing NEUROLOGIC: Alert, nonverbal, unable to follow commands SKIN: No rash, wounds Results Laboratory Results: 10/11/16 05:32 10/11/16 05:32 10/11/16 10/11/16 05:32 05:32 WBC 13.9 H RBC 3.43 L Hgb 10.2 L Hct 31.3 L MCV 91 MCH 29.6 MCHC 32.5 RDW 16.1 H Plt Count 210 Seg Neutrophils % 88.1 H Lymphocytes % 7.1 L Monocytes % 4.6 Eosinophils % 0.0 Basophils % 0.2 Absolute Neutrophils 12.3 H Absolute Lymphocytes 1.0 Absolute Monocytes 0.6 Absolute Eosinophils 0.0 Absolute Basophils 0.0 Sodium 141.0 Potassium 4.2 Chloride 110 H Carbon Dioxide 22 Anion Gap 9 BUN 33 H Creatinine 0.76 Est GFR ( Amer) > 60 Est GFR (Non-Af Amer) > 60 Glucose 99 Calcium 9.3 Impressions: Chest X-Ray 10/05/16 06:00 IMPRESSION: Patchy airspace opacity noted in the left lung base concerning for underlying infiltrate, edema, or aspiration. Correlate clinically. Modified Barium Swallow 10/05/16 07:00 IMPRESSION: NO EVIDENCE OF PENETRATION OR ASPIRATION ALTHOUGH THE STUDY WAS LIMITED DUE TO PATIENT'S CONDITION AND INITIATION OF ONLY 1 SWALLOW OF THIN LIQUIDS. THERE WAS SPILLAGE OVER THE BASE TONGUE INTO THE VALLECULAE AND PIRIFORM SINUSES WHICH REMAIN THROUGHOUT THE ENTIRE STUDY PUTTING THE PATIENT AT HIGH RISK OF ASPIRATION. PLEASE SEE SPEECH PATHOLOGIST REPORT FOR OTHER FINDINGS AND RECOMMENDATIONS. Fluoroscopy 10/06/16 00:00 IMPRESSION: UNSUCCESSFUL PLACEMENT OF A DOBHOFF TUBE DUE TO DISTAL ESOPHAGEAL STRICTURE AND OBSTRUCTION. FINDINGS WERE CALLED TO DR. POLO CARLOS ON 10/06/2016 AT 1118 HOURS. KUB X-Ray 10/06/16 00:00 IMPRESSION: UNSUCCESSFUL PLACEMENT OF A DOBHOFF TUBE DUE TO DISTAL ESOPHAGEAL STRICTURE AND OBSTRUCTION. FINDINGS WERE CALLED TO DR. POLO CARLOS ON 10/06/[address] AT [address] 10/10/16 00:00 IMPRESSION: Early pneumonia or aspiration in the lower lobes. No evidence of esophageal stricture. 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 Assessment & Plan - Diagnosis (1) Aspiration pneumonia Qualifiers: Aspiration pneumonia type: due to regurgitated food Laterality: left Lung location: lower lobe of lung Qualified Code(s): J69.0 - Pneumonitis due to inhalation of food and vomit Is this a current diagnosis for this admission?: YesPlan: Continue ertapenem day #6. Likely secondary to gram-negative or anaerobic organism. (2) Dementia Qualifiers: Dementia type: vascular dementia Dementia behavioral disturbance: without behavioral disturbance Qualified Code(s): F01.50 - Vascular dementia without behavioral disturbance Is this a current diagnosis for this admission?: YesPlan: Continue supportive care. Continue to have end-of-life discussions with family particularly in light of complicated feeding issues. (3) Dysphagia Qualifiers: Dysphagia type: unspecified Qualified Code(s): R13.10 - Dysphagia, unspecified Is this a current diagnosis for this admission?: YesPlan: GI unable to place gastrostomy tube secondary to large hiatal hernia. The family insist on aggressive artificial feeding we may need to ask surgery to place J-tube. Continue IV fluids for now. (4) History of right hip hemiarthroplasty Is this a current diagnosis for this admission?: Yes (5) Acute on chronic intracranial subdural hematoma Is this a current diagnosis for this admission?: YesPlan: Case discussed with patient's health care proxy, his daughter, the option of surgery. Family did not want surgery. Patient a DNR/DNI. Patient completed 7 days of IV Decadron. Repeat CT of the head reveals that this is stabilizing. Dr. Carlos did discuss this with Dr. Han from [facility] neurosurgery. - Time Time Spent with patient: 35 or more minutes
[2016-10-12] MEDS: ENALAPRILAT DIHYDRATE INJ/PF 1.25 MG/1 ML SDV IV SCH ×4 (00:23→18:51)
[2016-10-12] MEDS: IPRATROPIUM/ALBUTEROL 0.5-2.5 MG/3 ML AMPUL NEB SCH ×3 (00:51→15:51)
[2016-10-12] MEDS: HYDRALAZINE HCL INJ/PF 20 MG/1 ML SDV IV SCH ×3 (05:25→21:28)
[2016-10-12] MEDS: DEXTROSE 5%-1/2 NORMAL SALINE 1,000 ML IV PRN ×2 (05:25→21:31)
--- NOTE | 2016-10-12 09:17 | PDOC PROGRESS REPORT ---
Subjective Progress Note for:: 10/12/16 Subjective:: patient underwent EGD yesterday. His esophagus is patent he has a large paraesophageal hernia that is at risk for possible volvulus patient has difficulty feeding will not be able to place a G tube since a large portion of his gastric cavity is in the thoracic area he would benefit from a surgically placed J tube surgery is on board. Physical Exam Vital Signs: Temp Pulse Resp BP Pulse Ox 97.6 F 66 14 117/60 96 10/12/16 08:20 10/12/16 08:24 10/12/16 08:24 10/12/16 08:20 10/12/16 08:24 Intake & Output 10/11/16 10/12/16 10/13/16 06:59 06:59 06:59 Intake Total 1605 1856 Output Total 1500 1475 Balance 105 381 Weight 74.8 kg 75.2 kg General appearance: PRESENT: no acute distress Head exam: PRESENT: atraumatic, normocephalic Eye exam: PRESENT: EOMI, PERRLA. ABSENT: nystagmus, periorbital swelling, scleral icterus Mouth exam: PRESENT: moist, neck supple Throat exam: ABSENT: tonsillar exudate, tonsillogmegaly Neck exam: ABSENT: meningismus, tenderness, thyromegaly Respiratory exam: PRESENT: symmetrical, unlabored. ABSENT: accessory muscle use , chest wall tenderness, tachypnea Cardiovascular exam: PRESENT: RRR, +S1, +S2 GI/Abdominal exam: PRESENT: soft. ABSENT: ascites, Paulson's sign, rebound, rigid Extremities exam: ABSENT: joint swelling Neurological exam: PRESENT: alert, awake, oriented to situation. ABSENT: oriented to time Skin exam: PRESENT: normal color. ABSENT: mottled, pallor, petechiae, urticaria , vesicles Results Laboratory Results: 10/11/16 05:32 10/11/16 05:32 Impressions: Chest X-Ray 10/05/16 06:00 IMPRESSION: Patchy airspace opacity noted in the left lung base concerning for underlying infiltrate, edema, or aspiration. Correlate clinically. Modified Barium Swallow 10/05/16 07:00 IMPRESSION: NO EVIDENCE OF PENETRATION OR ASPIRATION ALTHOUGH THE STUDY WAS LIMITED DUE TO PATIENT'S CONDITION AND INITIATION OF ONLY 1 SWALLOW OF THIN LIQUIDS. THERE WAS SPILLAGE OVER THE BASE TONGUE INTO THE VALLECULAE AND PIRIFORM SINUSES WHICH REMAIN THROUGHOUT THE ENTIRE STUDY PUTTING THE PATIENT AT HIGH RISK OF ASPIRATION. PLEASE SEE SPEECH PATHOLOGIST REPORT FOR OTHER FINDINGS AND RECOMMENDATIONS. Fluoroscopy 10/06/16 00:00 IMPRESSION: UNSUCCESSFUL PLACEMENT OF A DOBHOFF TUBE DUE TO DISTAL ESOPHAGEAL STRICTURE AND OBSTRUCTION. FINDINGS WERE CALLED TO DR. POLO CARLOS ON 10/06/2016 AT 1118 HOURS. KUB X-Ray 10/06/16 00:00 IMPRESSION: UNSUCCESSFUL PLACEMENT OF A DOBHOFF TUBE DUE TO DISTAL ESOPHAGEAL STRICTURE AND OBSTRUCTION. FINDINGS WERE CALLED TO DR. POLO CARLOS ON 10/06/[address] 10/10/16 00:00 IMPRESSION: Early pneumonia or aspiration in the lower lobes. No evidence of esophageal stricture. 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 Assessment & Plan - Diagnosis (1) Anemia Qualifiers: Anemia type: other cause Other causes of anemia: acute posthemorrhagic Qualified Code(s): D62 - Acute posthemorrhagic anemia Is this a current diagnosis for this admission?: YesPlan: chronic and multiple causes follow up as needed (2) Dysphagia Qualifiers: Dysphagia type: unspecified Qualified Code(s): R13.10 - Dysphagia, unspecified Is this a current diagnosis for this admission?: YesPlan: large paraesophageal hernia no esophageal stricture is appreciated on EGD (3) Esophageal stricture Is this a current diagnosis for this admission?: Yes (4) Feeding difficulty Plan: G tube is risky given his present situation would recommend J tube placement alternatively can transfer to [facility] for thoracic surgeon to assist with surgery for his paraesophageal hernia - Time Time Spent with patient: 25-34 minutes
[2016-10-12] MEDS: ERTAPENEM SODIUM 1 GM in NORMAL SALINE 50 ML IV SCH (14:24)
--- NOTE | 2016-10-12 18:19 | PDOC PROGRESS REPORT ---
Subjective Progress Note for:: 10/12/16 Subjective:: No new issues reported. I'm unable to obtain history from patient secondary to encephalopathy/dementia. Physical Exam Vital Signs: Temp Pulse Resp BP Pulse Ox 98.4 F 75 18 121/69 96 10/12/16 16:00 10/12/16 16:00 10/12/16 16:00 10/12/16 16:00 10/12/16 16:00 Intake & Output 10/11/16 10/12/16 10/13/16 06:59 06:59 06:59 Intake Total 1605 1856 750 Output Total 1500 1475 Balance 105 381 750 Weight 74.8 kg 75.2 kg GENERAL: Nonverbal, resting comfortably HEENT: Conjunctiva clear, nonicteric, moist mucous membranes, no JVD, midline trachea RESPIRATORY: Clear to auscultation bilaterally, no wheezes, no rhonchi CARDIAC: Regular rate and rhythm, no murmurs/gallops/rubs ABDOMEN: Soft, nondistended, nontender, positive bowel sounds, no rebound, no guarding EXTREMETIES: No edema, cyanosis, clubbing NEUROLOGIC: Alert, nonverbal, unable to follow commands SKIN: No rash, wounds Results Laboratory Results: 10/11/16 05:32 10/11/16 05:32 Impressions: Chest X-Ray 10/05/16 06:00 IMPRESSION: Patchy airspace opacity noted in the left lung base concerning for underlying infiltrate, edema, or aspiration. Correlate clinically. Modified Barium Swallow 10/05/16 07:00 IMPRESSION: NO EVIDENCE OF PENETRATION OR ASPIRATION ALTHOUGH THE STUDY WAS LIMITED DUE TO PATIENT'S CONDITION AND INITIATION OF ONLY 1 SWALLOW OF THIN LIQUIDS. THERE WAS SPILLAGE OVER THE BASE TONGUE INTO THE VALLECULAE AND PIRIFORM SINUSES WHICH REMAIN THROUGHOUT THE ENTIRE STUDY PUTTING THE PATIENT AT HIGH RISK OF ASPIRATION. PLEASE SEE SPEECH PATHOLOGIST REPORT FOR OTHER FINDINGS AND RECOMMENDATIONS. Fluoroscopy 10/06/16 00:00 IMPRESSION: UNSUCCESSFUL PLACEMENT OF A DOBHOFF TUBE DUE TO DISTAL ESOPHAGEAL STRICTURE AND OBSTRUCTION. FINDINGS WERE CALLED TO DR. POLO CARLOS ON 10/06/2016 AT 1118 HOURS. KUB X-Ray 10/06/16 00:00 IMPRESSION: UNSUCCESSFUL PLACEMENT OF A DOBHOFF TUBE DUE TO DISTAL ESOPHAGEAL STRICTURE AND OBSTRUCTION. FINDINGS WERE CALLED TO DR. POLO CARLOS ON 10/06/[address] 10/10/16 00:00 IMPRESSION: Early pneumonia or aspiration in the lower lobes. No evidence of esophageal stricture. 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 Assessment & Plan - Diagnosis (1) Aspiration pneumonia Qualifiers: Aspiration pneumonia type: due to regurgitated food Laterality: left Lung location: lower lobe of lung Qualified Code(s): J69.0 - Pneumonitis due to inhalation of food and vomit Is this a current diagnosis for this admission?: YesPlan: Continue ertapenem day #7. Likely secondary to gram-negative or anaerobic organism. (2) Dementia Qualifiers: Dementia type: vascular dementia Dementia behavioral disturbance: without behavioral disturbance Qualified Code(s): F01.50 - Vascular dementia without behavioral disturbance Is this a current diagnosis for this admission?: YesPlan: Continue supportive care. (3) Dysphagia Qualifiers: Dysphagia type: unspecified Qualified Code(s): R13.10 - Dysphagia, unspecified Is this a current diagnosis for this admission?: YesPlan: GI unable to place gastrostomy tube secondary to large hiatal hernia. The family desires aggressive artificial feeding so we may need to ask surgery to place J-tube. Continue IV fluids for now. (4) History of right hip hemiarthroplasty Is this a current diagnosis for this admission?: Yes (5) Acute on chronic intracranial subdural hematoma Is this a current diagnosis for this admission?: YesPlan: Case discussed with patient's health care proxy, his daughter, the option of surgery. Family did not want surgery. Patient a DNR/DNI. Patient completed 7 days of IV Decadron. Repeat CT of the head reveals that this is stabilizing. Dr. Carlos did discuss this with Dr. Han from [facility] neurosurgery. - Time Time Spent with patient: 25-34 minutes Anticipated discharge: SNF
[2016-10-13] MEDS: IPRATROPIUM/ALBUTEROL 0.5-2.5 MG/3 ML AMPUL NEB SCH ×4 (00:14→23:53)
[2016-10-13] MEDS: ENALAPRILAT DIHYDRATE INJ/PF 1.25 MG/1 ML SDV IV SCH ×4 (00:45→17:33)
[2016-10-13 05:07] LABS: ABSOLUTE EOSINOPHILS # (AUTO) 0.2 10^3/uL (0.0-0.6); ABSOLUTE LYMPHOCYTES (AUTO) 1.5 10^3/uL (0.5-4.7); ABSOLUTE MONOCYTES (AUTO) 0.8 10^3/uL (0.1-1.4); ABSOLUTE NEUT (AUTO) 8.6 10^3/uL (1.7-8.2); BASOPHILS % (AUTO) 0.1 % (0-2); EOSINOPHILS % (AUTO) 1.4 % (0-6); HEMATOCRIT 30.1 % (37.9-51.0); HEMOGLOBIN 9.9 g/dL (13.5-17.0); HGB HCT DIFFERENCE -0.4; LYMPHOCYTES % (AUTO) 13.1 % (13-45); MEAN CORPUSCULAR HEMOGLOBIN 29.9 pg (27.0-33.4); MEAN CORPUSCULAR HGB CONC 32.8 g/dL (32.0-36.0); MEAN CORPUSCULAR VOLUME 91 fl (80-97); MONOCYTES % (AUTO) 7.1 % (3-13); RED CELL DISTRIBUTION WIDTH 16.5 % (11.5-14.0); SEGMENTED NEUTROPHILS % (AUTO) 78.3 % (42-78); WHITE BLOOD COUNT 11.1 10^3/uL (4.0-10.5)
[2016-10-13 05:39] LABS: ALANINE AMINOTRANSFERASE 31 U/L (21-72); ALBUMIN 2.7 g/dL (3.5-5.0); ALKALINE PHOSPHATASE 89 U/L (38-126); ANION GAP 10 (5-19); ASPARTATE AMINO TRANSFERASE 27 U/L (17-59); BILIRUBIN,TOTAL 0.7 mg/dL (0.2-1.3); BLOOD UREA NITROGEN 30 mg/dL (7-20); CALCIUM 8.7 mg/dL (8.4-10.2); CARBON DIOXIDE 21 mmol/L (22-30); CHLORIDE 109 mmol/L (98-107); CREATININE RESULT 0.87 mg/dL (0.52-1.25); GLUCOSE 81 mg/dL (75-110); POTASSIUM 3.2 mmol/L (3.6-5.0); SODIUM 139.5 mmol/L (137-145); TOTAL PROTEIN 5.7 g/dL (6.3-8.2)
[2016-10-13] MEDS: HYDRALAZINE HCL INJ/PF 20 MG/1 ML SDV IV SCH ×3 (05:43→21:39)
[2016-10-13] MEDS ORDERED: POTASSI CL 20 MEQ/50 ML RIDER 20 MEQ/50 ML RTUPB IV ONE (08:20)
[2016-10-13] MEDS: POTASSI CL 20 MEQ/D5-1/2NS 1L 1,000 ML IV PRN ×2 (08:40→21:39)
--- NOTE | 2016-10-13 10:24 | PDOC PROGRESS REPORT ---
Subjective Progress Note for:: 10/13/16 Subjective:: No new issues reported. I'm unable to obtain history from patient secondary to encephalopathy/dementia. Physical Exam Vital Signs: Temp Pulse Resp BP Pulse Ox 97.6 F 78 20 155/85 H 94 10/13/16 07:22 10/13/16 08:24 10/13/16 08:24 10/13/16 07:22 10/13/16 08:24 Intake & Output 10/12/16 10/13/16 10/14/16 06:59 06:59 06:59 Intake Total 1856 1506 Output Total 1275 675 Balance 581 831 Weight 75.2 kg 82.6 kg GENERAL: Nonverbal, resting comfortably HEENT: Conjunctiva clear, nonicteric, moist mucous membranes, no JVD, midline trachea RESPIRATORY: Clear to auscultation bilaterally, no wheezes, no rhonchi CARDIAC: Regular rate and rhythm, no murmurs/gallops/rubs ABDOMEN: Soft, nondistended, nontender, positive bowel sounds, no rebound, no guarding EXTREMETIES: No edema, cyanosis, clubbing NEUROLOGIC: Alert, nonverbal, unable to follow commands SKIN: No rash, wounds Results Laboratory Results: 10/13/16 04:42 10/13/16 04:42 10/13/16 10/13/16 04:42 04:42 WBC 11.1 H RBC 3.30 L Hgb 9.9 L Hct 30.1 L MCV 91 MCH 29.9 MCHC 32.8 RDW 16.5 H Plt Count 235 Seg Neutrophils % 78.3 H Lymphocytes % 13.1 Monocytes % 7.1 Eosinophils % 1.4 Basophils % 0.1 Absolute Neutrophils 8.6 H Absolute Lymphocytes 1.5 Absolute Monocytes 0.8 Absolute Eosinophils 0.2 Absolute Basophils 0.0 Sodium 139.5 Potassium 3.2 L Chloride 109 H Carbon Dioxide 21 L Anion Gap 10 BUN 30 H Creatinine 0.87 Est GFR ( Amer) > 60 Est GFR (Non-Af Amer) > 60 Glucose 81 Calcium 8.7 Magnesium 2.0 Total Bilirubin 0.7 AST 27 ALT 31 Alkaline Phosphatase 89 Total Protein 5.7 L Albumin 2.7 L Impressions: Chest X-Ray 10/05/16 06:00 IMPRESSION: Patchy airspace opacity noted in the left lung base concerning for underlying infiltrate, edema, or aspiration. Correlate clinically. Modified Barium Swallow 10/05/16 07:00 IMPRESSION: NO EVIDENCE OF PENETRATION OR ASPIRATION ALTHOUGH THE STUDY WAS LIMITED DUE TO PATIENT'S CONDITION AND INITIATION OF ONLY 1 SWALLOW OF THIN LIQUIDS. THERE WAS SPILLAGE OVER THE BASE TONGUE INTO THE VALLECULAE AND PIRIFORM SINUSES WHICH REMAIN THROUGHOUT THE ENTIRE STUDY PUTTING THE PATIENT AT HIGH RISK OF ASPIRATION. PLEASE SEE SPEECH PATHOLOGIST REPORT FOR OTHER FINDINGS AND RECOMMENDATIONS. Fluoroscopy 10/06/16 00:00 IMPRESSION: UNSUCCESSFUL PLACEMENT OF A DOBHOFF TUBE DUE TO DISTAL ESOPHAGEAL STRICTURE AND OBSTRUCTION. FINDINGS WERE CALLED TO DR. POLO CARLOS ON 10/06/2016 AT 1118 HOURS. KUB X-Ray 10/06/16 00:00 IMPRESSION: UNSUCCESSFUL PLACEMENT OF A DOBHOFF TUBE DUE TO DISTAL ESOPHAGEAL STRICTURE AND OBSTRUCTION. FINDINGS WERE CALLED TO DR. POLO CARLOS ON 10/06/[address] 10/10/16 00:00 IMPRESSION: Early pneumonia or aspiration in the lower lobes. No evidence of esophageal stricture. 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 Assessment & Plan - Diagnosis (1) Aspiration pneumonia Qualifiers: Aspiration pneumonia type: due to regurgitated food Laterality: left Lung location: lower lobe of lung Qualified Code(s): J69.0 - Pneumonitis due to inhalation of food and vomit Is this a current diagnosis for this admission?: YesPlan: Continue ertapenem until 10/16/16. Likely secondary to gram-negative or anaerobic organism. (2) Dementia Qualifiers: Dementia type: vascular dementia Dementia behavioral disturbance: without behavioral disturbance Qualified Code(s): F01.50 - Vascular dementia without behavioral disturbance Is this a current diagnosis for this admission?: YesPlan: Continue supportive care. (3) Dysphagia Qualifiers: Dysphagia type: unspecified Qualified Code(s): R13.10 - Dysphagia, unspecified Is this a current diagnosis for this admission?: YesPlan: GI unable to place gastrostomy tube secondary to large hiatal hernia. Dr. Winchester of surgery to discuss J-tube with family. Continue IV fluids for now. (4) History of right hip hemiarthroplasty Is this a current diagnosis for this admission?: Yes (5) Acute on chronic intracranial subdural hematoma Is this a current diagnosis for this admission?: YesPlan: Case discussed with patient's health care proxy, his daughter, the option of surgery. Family did not want surgery. Patient a DNR/DNI. Patient completed 7 days of IV Decadron. Repeat CT of the head reveals that this is stabilizing. Dr. Carlos did discuss this with Dr. Han from [facility] neurosurgery. - Time Time Spent with patient: 25-34 minutes Anticipated discharge: SNF
--- NOTE | 2016-10-13 15:13 | CONSULTATION REPORT E ---
Consultation Report NAME: GAVIN GUERRA : 1930 AGE: 85Y DATE: 10/13/2016 318 B TO: WALDEMAR ROBLEDO M.D. FROM: PHILIP WIGGINS M.D. Requesting Physician This is a followup consultation and family counseling. The patient is an 85-year-old -[place] with a history of dementia, schizophrenia, acute subdural hematoma and ileus with a recent diagnosis of paraesophageal hernia who remains hospitalized at [facility] for failure to thrive, and unavailability of a reliable feeding tube. I reviewed the patient's medical record, examined the patient and spoke with the patient's daughter, [facility] [id number]. My assessment of the patient is that he has deteriorated clinically compared to 4 days ago. He is less alert, does not follow commands. Furthermore, he remains distended with a presumed ileus versus colonic inertia problem. The abdomen is quite distended. The patient recently underwent upper endoscopy by Dr. Weiss and was found to have paraesophageal hernia. There was no opportunity to bring the stomach up to the intraabdominal wall for possible PEG tube placement, so the procedure was aborted. I explained to the patient's daughter that the operative option would be a feeding jejunostomy. That would require general anesthesia, as well as opening up the abdomen with a moderately distended ileus preop. I explained to the family that the risks of this are prohibitive; furthermore, our anesthesiology team would be highly reluctant to induce general anesthesia in an 85-year-old demented gentleman with a recent subdural hematoma. The risks are prohibitive and I explained to the patient's daughter that my assessment of the situation would be similar to that found with other clinicians who are familiar with the risks associated with such a surgical option. Unfortunately, the patient does not have any many if any other feeding tube options at this time. I believe a palliative care approach should be taken rather than pursuing more therapeutic interventions. I did speak with Dr. Nahun Mariano, hospitalist, regarding the above. DICTATING PHYSICIAN: WALDEMAR ROBLEDO M.D. [id number] PHY#: [id number] ID: [id number] JOB#: [id number] ACCT: [id number] cc:WALDEMAR ROBLEDO M.D. >
[2016-10-14] MEDS: ENALAPRILAT DIHYDRATE INJ/PF 1.25 MG/1 ML SDV IV SCH ×4 (00:46→17:42)
[2016-10-14] MEDS: HYDRALAZINE HCL INJ/PF 20 MG/1 ML SDV IV SCH ×3 (05:21→21:08)
[2016-10-14] MEDS: POTASSI CL 20 MEQ/D5-1/2NS 1L 1,000 ML IV PRN ×2 (05:38→17:05)
[2016-10-14 06:02] LABS: ABSOLUTE EOSINOPHILS # (AUTO) 0.2 10^3/uL (0.0-0.6); ABSOLUTE LYMPHOCYTES (AUTO) 1.2 10^3/uL (0.5-4.7); ABSOLUTE MONOCYTES (AUTO) 0.9 10^3/uL (0.1-1.4); ABSOLUTE NEUT (AUTO) 10.7 10^3/uL (1.7-8.2); BASOPHILS % (AUTO) 0.1 % (0-2); EOSINOPHILS % (AUTO) 1.2 % (0-6); HEMATOCRIT 31.5 % (37.9-51.0); HEMOGLOBIN 10.3 g/dL (13.5-17.0); HGB HCT DIFFERENCE -0.6; LYMPHOCYTES % (AUTO) 9.6 % (13-45); MEAN CORPUSCULAR HEMOGLOBIN 30.1 pg (27.0-33.4); MEAN CORPUSCULAR HGB CONC 32.8 g/dL (32.0-36.0); MEAN CORPUSCULAR VOLUME 92 fl (80-97); MONOCYTES % (AUTO) 6.8 % (3-13); RED BLOOD COUNT 3.43 10^6/uL (4.35-5.55); RED CELL DISTRIBUTION WIDTH 16.7 % (11.5-14.0); SEGMENTED NEUTROPHILS % (AUTO) 82.3 % (42-78)
[2016-10-14 06:20] LABS: ANION GAP 8 (5-19); BLOOD UREA NITROGEN 22 mg/dL (7-20); CALCIUM 8.7 mg/dL (8.4-10.2); CARBON DIOXIDE 22 mmol/L (22-30); CHLORIDE 108 mmol/L (98-107); GLUCOSE 99 mg/dL (75-110); MAGNESIUM 1.9 mg/dL (1.6-2.3); SODIUM 138.3 mmol/L (137-145)
[2016-10-14 06:25] LABS: POTASSIUM 3.6 mmol/L (3.6-5.0)
[2016-10-14] MEDS: IPRATROPIUM/ALBUTEROL 0.5-2.5 MG/3 ML AMPUL NEB SCH ×2 (08:03→16:07)
[2016-10-14] MEDS: CLONIDINE 0.2 MG/24 HR PATCH.TDWK TD SCH (12:05)
[2016-10-14] MEDS ORDERED: ALBUTEROL SULFATE 0.083% NEB 2.5 MG/3 ML AMPUL NEB PRN (16:36)
--- NOTE | 2016-10-14 16:46 | PDOC PROGRESS REPORT ---
Subjective Progress Note for:: 10/14/16 Subjective:: No new issues reported. I'm unable to obtain history from patient secondary to encephalopathy/dementia. Physical Exam Vital Signs: Temp Pulse Resp BP Pulse Ox 98.4 F 85 18 144/76 H 97 10/14/16 15:25 10/14/16 16:08 10/14/16 16:08 10/14/16 15:25 10/14/16 16:08 Intake & Output 10/13/16 10/14/16 10/15/16 06:59 06:59 06:59 Intake Total 1506 2139 Output Total 675 825 200 Balance 831 1314 -200 Weight 82.6 kg 74.4 kg GENERAL: Nonverbal, resting comfortably, eyes open, moaning occasionally HEENT: Conjunctiva clear, nonicteric, moist mucous membranes, no JVD, midline trachea RESPIRATORY: Clear to auscultation bilaterally, no wheezes, no rhonchi CARDIAC: Regular rate and rhythm, no murmurs/gallops/rubs ABDOMEN: Soft, nondistended, nontender, positive bowel sounds, no rebound, no guarding EXTREMETIES: No edema, cyanosis, clubbing NEUROLOGIC: Alert, nonverbal, unable to follow commands SKIN: No rash, wounds Results Laboratory Results: 10/14/16 05:02 10/14/16 05:02 10/14/16 10/14/16 05:02 05:02 WBC 13.0 H RBC 3.43 L Hgb 10.3 L Hct 31.5 L MCV 92 MCH 30.1 MCHC 32.8 RDW 16.7 H Plt Count 232 Seg Neutrophils % 82.3 H Lymphocytes % 9.6 L Monocytes % 6.8 Eosinophils % 1.2 Basophils % 0.1 Absolute Neutrophils 10.7 H Absolute Lymphocytes 1.2 Absolute Monocytes 0.9 Absolute Eosinophils 0.2 Absolute Basophils 0.0 Sodium 138.3 Potassium 3.6 Chloride 108 H Carbon Dioxide 22 Anion Gap 8 BUN 22 H Creatinine 0.80 Est GFR ( Amer) > 60 Est GFR (Non-Af Amer) > 60 Glucose 99 Calcium 8.7 Magnesium 1.9 Impressions: Chest X-Ray 10/05/16 06:00 IMPRESSION: Patchy airspace opacity noted in the left lung base concerning for underlying infiltrate, edema, or aspiration. Correlate clinically. Modified Barium Swallow 10/05/16 07:00 IMPRESSION: NO EVIDENCE OF PENETRATION OR ASPIRATION ALTHOUGH THE STUDY WAS LIMITED DUE TO PATIENT'S CONDITION AND INITIATION OF ONLY 1 SWALLOW OF THIN LIQUIDS. THERE WAS SPILLAGE OVER THE BASE TONGUE INTO THE VALLECULAE AND PIRIFORM SINUSES WHICH REMAIN THROUGHOUT THE ENTIRE STUDY PUTTING THE PATIENT AT HIGH RISK OF ASPIRATION. PLEASE SEE SPEECH PATHOLOGIST REPORT FOR OTHER FINDINGS AND RECOMMENDATIONS. Fluoroscopy 10/06/16 00:00 IMPRESSION: UNSUCCESSFUL PLACEMENT OF A DOBHOFF TUBE DUE TO DISTAL ESOPHAGEAL STRICTURE AND OBSTRUCTION. FINDINGS WERE CALLED TO DR. POLO CARLOS ON 10/06/2016 AT 1118 HOURS. KUB X-Ray 10/06/16 00:00 IMPRESSION: UNSUCCESSFUL PLACEMENT OF A DOBHOFF TUBE DUE TO DISTAL ESOPHAGEAL STRICTURE AND OBSTRUCTION. FINDINGS WERE CALLED TO DR. POLO CARLOS ON 10/06/[address] AT [address] 10/10/16 00:00 IMPRESSION: Early pneumonia or aspiration in the lower lobes. No evidence of esophageal stricture. 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 Assessment & Plan - Diagnosis (1) Aspiration pneumonia Qualifiers: Aspiration pneumonia type: due to regurgitated food Laterality: left Lung location: lower lobe of lung Qualified Code(s): J69.0 - Pneumonitis due to inhalation of food and vomit Is this a current diagnosis for this admission?: YesPlan: Continue ertapenem until 10/16/16. Likely secondary to gram-negative or anaerobic organism. (2) Dementia Qualifiers: Dementia type: vascular dementia Dementia behavioral disturbance: without behavioral disturbance Qualified Code(s): F01.50 - Vascular dementia without behavioral disturbance Is this a current diagnosis for this admission?: YesPlan: Continue supportive care. (3) Dysphagia Qualifiers: Dysphagia type: unspecified Qualified Code(s): R13.10 - Dysphagia, unspecified Is this a current diagnosis for this admission?: YesPlan: GI unable to place gastrostomy tube secondary to large hiatal hernia with most of stomach in thoracic cavity. Dr. Winchester of surgery discussed J-tube with family and advised family that surgery would not be an option at this facility secondary to high surgical risk for anesthesia as a result of subdural hematoma, comorbid conditions, advanced dementia. Second opinion was obtained from Dr. Dawit Reyez of general surgery at [facility]. He agrees with Dr. Winchester assessment and states that he would not perform surgery on this patient. Per family's request third opinion was obtained from Dr. Victoria of surgery at [facility]. He agrees with Dr. Winchester assessment and states that he would not perform surgery on this patient and advises that we should obtain palliative care consult. Per family's request fourth opinion was obtained from Dr. Robles of surgery at [facility]. She agrees with Dr. Winchester assessment and states that she would not perform surgery on this patient. Continue IV fluids for now. (4) History of right hip hemiarthroplasty Is this a current diagnosis for this admission?: YesPlan: [facility] and patient went to acute rehabilitation after hospitalization there. (5) Acute on chronic intracranial subdural hematoma Is this a current diagnosis for this admission?: YesPlan: Case discussed with patient's health care proxy, his daughter, the option of surgery. Family did not want surgery. Patient a DNR/DNI. Patient completed 7 days of IV Decadron. Repeat CT of the head reveals that this is stabilizing. Dr. Carlos did discuss this with Dr. Han from [facility] neurosurgery. - Time Time Spent with patient: 35 or more minutes
[2016-10-14] MEDS: ERTAPENEM SODIUM 1 GM in NORMAL SALINE 50 ML IV SCH (17:39)
[2016-10-15] MEDS: ENALAPRILAT DIHYDRATE INJ/PF 1.25 MG/1 ML SDV IV SCH ×4 (00:28→17:28)
[2016-10-15] MEDS: POTASSI CL 20 MEQ/D5-1/2NS 1L 1,000 ML IV PRN ×2 (03:20→13:23)
[2016-10-15] MEDS: HYDRALAZINE HCL INJ/PF 20 MG/1 ML SDV IV SCH ×3 (05:42→23:23)
--- NOTE | 2016-10-15 12:17 | PDOC PROGRESS REPORT ---
Subjective Progress Note for:: 10/15/16 Subjective:: Patient is resting comfortably when I see him this morning. Unable to obtain review of systems secondary to encephalopathy. No acute events overnight. Physical Exam Vital Signs: Temp Pulse Resp BP Pulse Ox 98.3 F 77 16 139/79 H 99 10/15/16 03:43 10/15/16 03:43 10/15/16 03:43 10/15/16 03:43 10/15/16 03:43 Intake & Output 10/14/16 10/15/16 10/16/16 06:59 06:59 07:59 Intake Total 2139 2402 Output Total 825 750 Balance 1314 1652 Weight 74.4 kg 74.1 kg Exam: GENERAL: Nonverbal, resting comfortably, unable to arouse HEENT: Conjunctiva clear, nonicteric, moist mucous membranes, no JVD, midline trachea RESPIRATORY: Clear to auscultation bilaterally, no wheezes, no rhonchi CARDIAC: Regular rate and rhythm, no murmurs/gallops/rubs ABDOMEN: Soft, nondistended, nontender, positive bowel sounds, no rebound, no guarding EXTREMETIES: No edema, cyanosis, clubbing NEUROLOGIC: Resting, nonverbal, unable to follow commands SKIN: No rash, wounds Results Laboratory Results: 10/14/16 05:02 10/14/16 05:02 Impressions: Chest X-Ray 10/05/16 06:00 IMPRESSION: Patchy airspace opacity noted in the left lung base concerning for underlying infiltrate, edema, or aspiration. Correlate clinically. Modified Barium Swallow 10/05/16 07:00 IMPRESSION: NO EVIDENCE OF PENETRATION OR ASPIRATION ALTHOUGH THE STUDY WAS LIMITED DUE TO PATIENT'S CONDITION AND INITIATION OF ONLY 1 SWALLOW OF THIN LIQUIDS. THERE WAS SPILLAGE OVER THE BASE TONGUE INTO THE VALLECULAE AND PIRIFORM SINUSES WHICH REMAIN THROUGHOUT THE ENTIRE STUDY PUTTING THE PATIENT AT HIGH RISK OF ASPIRATION. PLEASE SEE SPEECH PATHOLOGIST REPORT FOR OTHER FINDINGS AND RECOMMENDATIONS. Fluoroscopy 10/06/16 00:00 IMPRESSION: UNSUCCESSFUL PLACEMENT OF A DOBHOFF TUBE DUE TO DISTAL ESOPHAGEAL STRICTURE AND OBSTRUCTION. FINDINGS WERE CALLED TO DR. POLO CARLOS ON 10/06/2016 AT 1118 HOURS. KUB X-Ray 10/06/16 00:00 IMPRESSION: UNSUCCESSFUL PLACEMENT OF A DOBHOFF TUBE DUE TO DISTAL ESOPHAGEAL STRICTURE AND OBSTRUCTION. FINDINGS WERE CALLED TO DR. POLO CARLOS ON 10/06/[address] 10/10/16 00:00 IMPRESSION: Early pneumonia or aspiration in the lower lobes. No evidence of esophageal stricture. 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 Assessment & Plan - Diagnosis (1) Acute on chronic intracranial subdural hematoma Is this a current diagnosis for this admission?: YesPlan: Have discussed with patient's health care proxy, his daughter, the option of surgery. She reports she does not want him to "have a hole cut in his head at his age." Patient a DNR/DNI. All the patient's current mental status will likely be his new baseline. This appears to have increased slightly in size since I last saw him. And from 10/07-10/11. Did discuss this previously with Dr. Han from [facility] neurosurgery who recommended 7 days of Decadron. (2) Dysphagia Qualifiers: Dysphagia type: unspecified Qualified Code(s): R13.10 - Dysphagia, unspecified Is this a current diagnosis for this admission?: YesPlan: Taken from Dr. Mariano's note: "GI unable to place gastrostomy tube secondary to large hiatal hernia with most of stomach in thoracic cavity. Dr. Winchester of surgery discussed J-tube with family and advised family that surgery would not be an option at this facility secondary to high surgical risk for anesthesia as a result of subdural hematoma, comorbid conditions, advanced dementia. Second opinion was obtained from Dr. Dawit Reyez of general surgery at [facility]. He agrees with Dr. Winchester assessment and states that he would not perform surgery on this patient. Per family's request third opinion was obtained from Dr. Victoria of surgery at [facility]. He agrees with Dr. Winchester assessment and states that he would not perform surgery on this patient and advises that we should obtain palliative care consult. Per family's request fourth opinion was obtained from Dr. Robles of surgery at [facility]. She agrees with Dr. Winchester assessment and states that she would not perform surgery on this patient. Continue IV fluids for now." (3) Sepsis Qualifiers: Sepsis type: sepsis due to unspecified organism Qualified Code(s): A41.9 - Sepsis, unspecified organism Is this a current diagnosis for this admission?: YesPlan: Patient's sepsis due to aspiration pneumonia. (4) Aspiration pneumonia Qualifiers: Aspiration pneumonia type: due to regurgitated food Laterality: left Lung location: lower lobe of lung Qualified Code(s): J69.0 - Pneumonitis due to inhalation of food and vomit Is this a current diagnosis for this admission?: YesPlan: Patient with aspiration pneumonia secondary to dysphagia from subdural hematoma. Patient also found to have distal esophageal stricture and large hiatal hernia. Patient currently on ertapenem and breathing treatments. Unable to obtain sputum specimen. Clinically improving. White count improving. (5) Complicated UTI (urinary tract infection) Is this a current diagnosis for this admission?: Yes (6) Acute blood loss anemia Is this a current diagnosis for this admission?: YesPlan: Stools negative for occult blood. Patient has possibly had a small amount of blood loss into his cranium. Patient likely suffering from acute blood loss anemia due to recent hip surgery. Patient has had an appropriate increase and hemoglobin from 7.3 to 9.9 and stable. (7) History of right hip hemiarthroplasty Is this a current diagnosis for this admission?: Yes (8) Dysphasia Is this a current diagnosis for this admission?: Yes (9) Dementia Qualifiers: Dementia type: vascular dementia Dementia behavioral disturbance: without behavioral disturbance Qualified Code(s): F01.50 - Vascular dementia without behavioral disturbance Is this a current diagnosis for this admission?: YesPlan: Continue supportive care. Will stop Exelon patch. Patient's family reports that he was taking Delsym at home for this. (10) Hyperlipidemia Qualifiers: Hyperlipidemia type: unspecified Qualified Code(s): E78.5 - Hyperlipidemia, unspecified Is this a current diagnosis for this admission?: Yes (11) Hypertension Qualifiers: Hypertension type: essential hypertension Qualified Code(s): I10 - Essential (primary) hypertension Is this a current diagnosis for this admission?: Yes (12) Altered mental status Qualifiers: Altered mental status type: somnolence Qualified Code(s): R40.0 - Somnolence Is this a current diagnosis for this admission?: YesPlan: Improved. Patient's somnolence/AMS likely secondary to acute on chronic subdural hematoma and sepsis from aspiration pneumonia. - Time Time Spent with patient: 25-34 minutes Medications reviewed and adjusted accordingly: Yes
[2016-10-15] MEDS: ERTAPENEM SODIUM 1 GM in NORMAL SALINE 50 ML IV SCH (17:28)
[2016-10-16] MEDS: POTASSI CL 20 MEQ/D5-1/2NS 1L 1,000 ML IV PRN ×2 (01:33→13:55)
[2016-10-16] MEDS: ENALAPRILAT DIHYDRATE INJ/PF 1.25 MG/1 ML SDV IV SCH ×4 (01:35→17:42)
[2016-10-16] MEDS: HYDRALAZINE HCL INJ/PF 20 MG/1 ML SDV IV SCH ×2 (06:37→17:42)
[2016-10-16] MEDS ORDERED: PHARMACY COMMUNICATION ORDER MC NR (13:45)
--- NOTE | 2016-10-16 13:46 | PDOC PROGRESS REPORT ---
Subjective Progress Note for:: 10/16/16 Subjective:: Patient is resting comfortably when I see him this morning. Unable to obtain review of systems secondary to encephalopathy. No acute events overnight. Physical Exam Vital Signs: Temp Pulse Resp BP Pulse Ox 97.7 F 74 18 125/65 99 10/16/16 07:24 10/16/16 07:24 10/16/16 07:24 10/16/16 07:24 10/16/16 07:24 Intake & Output 10/15/16 10/16/16 10/17/16 05:59 06:59 06:59 Intake Total Output Total Balance Weight Exam: GENERAL: Nonverbal, resting comfortably, unable to arouse HEENT: Conjunctiva clear, nonicteric, moist mucous membranes, no JVD, midline trachea RESPIRATORY: Clear to auscultation bilaterally, no wheezes, no rhonchi CARDIAC: Regular rate and rhythm, no murmurs/gallops/rubs ABDOMEN: Soft, mildly distended, nontender, positive bowel sounds, no rebound, no guarding EXTREMETIES: No edema, cyanosis, clubbing NEUROLOGIC: Resting, nonverbal, unable to follow commands SKIN: No rash, wounds Results Laboratory Results: 10/14/16 05:02 10/14/16 05:02 Impressions: Chest X-Ray 10/05/16 06:00 IMPRESSION: Patchy airspace opacity noted in the left lung base concerning for underlying infiltrate, edema, or aspiration. Correlate clinically. Modified Barium Swallow 10/05/16 07:00 IMPRESSION: NO EVIDENCE OF PENETRATION OR ASPIRATION ALTHOUGH THE STUDY WAS LIMITED DUE TO PATIENT'S CONDITION AND INITIATION OF ONLY 1 SWALLOW OF THIN LIQUIDS. THERE WAS SPILLAGE OVER THE BASE TONGUE INTO THE VALLECULAE AND PIRIFORM SINUSES WHICH REMAIN THROUGHOUT THE ENTIRE STUDY PUTTING THE PATIENT AT HIGH RISK OF ASPIRATION. PLEASE SEE SPEECH PATHOLOGIST REPORT FOR OTHER FINDINGS AND RECOMMENDATIONS. Fluoroscopy 10/06/16 00:00 IMPRESSION: UNSUCCESSFUL PLACEMENT OF A DOBHOFF TUBE DUE TO DISTAL ESOPHAGEAL STRICTURE AND OBSTRUCTION. FINDINGS WERE CALLED TO DR. POLO CARLOS ON 10/06/2016 AT 1118 HOURS. KUB X-Ray 10/06/16 00:00 IMPRESSION: UNSUCCESSFUL PLACEMENT OF A DOBHOFF TUBE DUE TO DISTAL ESOPHAGEAL STRICTURE AND OBSTRUCTION. FINDINGS WERE CALLED TO DR. POLO CARLOS ON 10/06/[address] 10/10/16 00:00 IMPRESSION: Early pneumonia or aspiration in the lower lobes. No evidence of esophageal stricture. Head CT 10/15/16 00:00 IMPRESSION: 1. Left subdural hematoma looks fairly stable in appearance without progressive mass effect or developing midline shift. Assessment & Plan - Diagnosis (1) Acute on chronic intracranial subdural hematoma Is this a current diagnosis for this admission?: YesPlan: Have discussed with patient's health care proxy, his daughter, the option of surgery. She reports she does not want him to "have a hole cut in his head at his age." Patient a DNR/DNI. All the patient's current mental status will likely be his new baseline. This appears to have increased slightly in size since I last saw him. And from 10/07-10/11. Have repeated CAT scan today which actually shows that this is stable with no active bleeding and not increasing in size. Have discussed with family possibility for transfer for intervention. Did discuss this previously with Dr. Han from [facility] neurosurgery who recommended 7 days of Decadron. (2) Dysphagia Qualifiers: Dysphagia type: unspecified Qualified Code(s): R13.10 - Dysphagia, unspecified Is this a current diagnosis for this admission?: YesPlan: At this time, family wants to exhaust every opportunity to have a j-tube placed. At this time, I have done so. Will make effort with [facility]. Taken from Dr. Mariano's note: "GI unable to place gastrostomy tube secondary to large hiatal hernia with most of stomach in thoracic cavity. Dr. Winchester of surgery discussed J-tube with family and advised family that surgery would not be an option at this facility secondary to high surgical risk for anesthesia as a result of subdural hematoma, comorbid conditions, advanced dementia. Second opinion was obtained from Dr. Dawit Reyez of general surgery at [facility]. He agrees with Dr. Winchester assessment and states that he would not perform surgery on this patient. Per family's request third opinion was obtained from Dr. Victoria of surgery at [facility]. He agrees with Dr. Winchester assessment and states that he would not perform surgery on this patient and advises that we should obtain palliative care consult. Per family's request fourth opinion was obtained from Dr. Robles of surgery at [facility]. She agrees with Dr. Winchester assessment and states that she would not perform surgery on this patient. Continue IV fluids for now." (3) Sepsis Qualifiers: Sepsis type: sepsis due to unspecified organism Qualified Code(s): A41.9 - Sepsis, unspecified organism Is this a current diagnosis for this admission?: YesPlan: Patient's sepsis due to aspiration pneumonia. (4) Aspiration pneumonia Qualifiers: Aspiration pneumonia type: due to regurgitated food Laterality: left Lung location: lower lobe of lung Qualified Code(s): J69.0 - Pneumonitis due to inhalation of food and vomit Is this a current diagnosis for this admission?: YesPlan: Patient with aspiration pneumonia secondary to dysphagia from subdural hematoma. Patient also found to have distal esophageal stricture and large hiatal hernia. Patient currently on ertapenem and breathing treatments. Patient has completed 10 days of ertapenem and will stop this. Unable to obtain sputum specimen. Clinically improving. White count improving. Repeat chest x-ray. (5) Acute blood loss anemia Is this a current diagnosis for this admission?: YesPlan: Stools negative for occult blood. Patient has possibly had a small amount of blood loss into his cranium. Patient likely suffering from acute blood loss anemia due to recent hip surgery. Patient has had an appropriate increase and hemoglobin from 7.3 to 9.9 and stable. (6) History of right hip hemiarthroplasty Is this a current diagnosis for this admission?: Yes (7) Dysphasia Is this a current diagnosis for this admission?: Yes (8) Dementia Qualifiers: Dementia type: vascular dementia Dementia behavioral disturbance: without behavioral disturbance Qualified Code(s): F01.50 - Vascular dementia without behavioral disturbance Is this a current diagnosis for this admission?: YesPlan: Continue supportive care. Believe this is patient's new baseline (9) Hyperlipidemia Qualifiers: Hyperlipidemia type: unspecified Qualified Code(s): E78.5 - Hyperlipidemia, unspecified Is this a current diagnosis for this admission?: Yes (10) Hypertension Qualifiers: Hypertension type: essential hypertension Qualified Code(s): I10 - Essential (primary) hypertension Is this a current diagnosis for this admission?: Yes (11) Altered mental status Qualifiers: Altered mental status type: somnolence Qualified Code(s): R40.0 - Somnolence Is this a current diagnosis for this admission?: Yes - Time Time Spent with patient: 25-34 minutes Medications reviewed and adjusted accordingly: Yes [facility] when bed available
[2016-10-17] MEDS: POTASSI CL 20 MEQ/D5-1/2NS 1L 1,000 ML IV PRN ×3 (00:05→19:36)
[2016-10-17] MEDS: ENALAPRILAT DIHYDRATE INJ/PF 1.25 MG/1 ML SDV IV SCH ×5 (00:26→23:31)
[2016-10-17] MEDS: HYDRALAZINE HCL INJ/PF 20 MG/1 ML SDV IV SCH ×5 (00:27→23:32)
[2016-10-17 10:54] LABS: ANION GAP 7 (5-19); BLOOD UREA NITROGEN 11 mg/dL (7-20); CALCIUM 8.7 mg/dL (8.4-10.2); CARBON DIOXIDE 20 mmol/L (22-30); CHLORIDE 109 mmol/L (98-107); CREATININE RESULT 0.74 mg/dL (0.52-1.25); GLUCOSE 88 mg/dL (75-110); POTASSIUM 3.6 mmol/L (3.6-5.0); SODIUM 135.6 mmol/L (137-145)
[2016-10-17 11:23] LABS: ABSOLUTE EOSINOPHILS # (AUTO) 0.2 10^3/uL (0.0-0.6); ABSOLUTE LYMPHOCYTES (AUTO) 1.1 10^3/uL (0.5-4.7); ABSOLUTE MONOCYTES (AUTO) 0.8 10^3/uL (0.1-1.4); ABSOLUTE NEUT (AUTO) 9.3 10^3/uL (1.7-8.2); BASOPHILS % (AUTO) 0.3 % (0-2); EOSINOPHILS % (AUTO) 1.7 % (0-6); HEMATOCRIT 31.9 % (37.9-51.0); HEMOGLOBIN 10.6 g/dL (13.5-17.0); HGB HCT DIFFERENCE -0.1; LYMPHOCYTES % (AUTO) 9.5 % (13-45); MEAN CORPUSCULAR HEMOGLOBIN 30.3 pg (27.0-33.4); MEAN CORPUSCULAR HGB CONC 33.1 g/dL (32.0-36.0); MEAN CORPUSCULAR VOLUME 91 fl (80-97); MONOCYTES % (AUTO) 7.4 % (3-13); RED CELL DISTRIBUTION WIDTH 16.1 % (11.5-14.0); SEGMENTED NEUTROPHILS % (AUTO) 81.1 % (42-78); WHITE BLOOD COUNT 11.4 10^3/uL (4.0-10.5)
[2016-10-17] MEDS ORDERED: PHARMACY COMMUNICATION ORDER MC NR (12:45)
[2016-10-17] MEDS ORDERED: SILVER SULFADIAZINE 1% CREAM 25 GM TP ONE (14:00)
--- NOTE | 2016-10-17 17:50 | PDOC PROGRESS REPORT ---
Subjective Progress Note for:: 10/17/16 Subjective:: Patient has interval breakdown of his bilateral heels Unable to obtain review of systems secondary to encephalopathy Physical Exam Vital Signs: Temp Pulse Resp BP Pulse Ox 98.4 F 78 20 152/75 H 97 10/17/16 03:43 10/17/16 07:00 10/17/16 03:43 10/17/16 03:43 10/17/16 03:43 Intake & Output 10/16/16 10/17/16 10/18/16 06:59 06:59 06:59 Intake Total 2600 Output Total 1275 Balance 1325 Weight 75.5 kg Exam: GENERAL: Nonverbal, resting comfortably, unable to arouse HEENT: Conjunctiva clear, nonicteric, moist mucous membranes, no JVD, midline trachea RESPIRATORY: Clear to auscultation bilaterally, no wheezes, no rhonchi CARDIAC: Regular rate and rhythm, no murmurs/gallops/rubs ABDOMEN: Soft, mildly distended, nontender, positive bowel sounds, no rebound, no guarding EXTREMETIES: No edema, cyanosis, clubbing NEUROLOGIC: Resting, nonverbal, unable to follow commands SKIN: No rash, wounds Results Laboratory Results: 10/14/16 05:02 10/14/16 05:02 Impressions: Chest X-Ray 10/05/16 06:00 IMPRESSION: Patchy airspace opacity noted in the left lung base concerning for underlying infiltrate, edema, or aspiration. Correlate clinically. Modified Barium Swallow 10/05/16 07:00 IMPRESSION: NO EVIDENCE OF PENETRATION OR ASPIRATION ALTHOUGH THE STUDY WAS LIMITED DUE TO PATIENT'S CONDITION AND INITIATION OF ONLY 1 SWALLOW OF THIN LIQUIDS. THERE WAS SPILLAGE OVER THE BASE TONGUE INTO THE VALLECULAE AND PIRIFORM SINUSES WHICH REMAIN THROUGHOUT THE ENTIRE STUDY PUTTING THE PATIENT AT HIGH RISK OF ASPIRATION. PLEASE SEE SPEECH PATHOLOGIST REPORT FOR OTHER FINDINGS AND RECOMMENDATIONS. Fluoroscopy 10/06/16 00:00 IMPRESSION: UNSUCCESSFUL PLACEMENT OF A DOBHOFF TUBE DUE TO DISTAL ESOPHAGEAL STRICTURE AND OBSTRUCTION. FINDINGS WERE CALLED TO DR. POLO CARLOS ON 10/06/2016 AT 1118 HOURS. KUB X-Ray 10/06/16 00:00 IMPRESSION: UNSUCCESSFUL PLACEMENT OF A DOBHOFF TUBE DUE TO DISTAL ESOPHAGEAL STRICTURE AND OBSTRUCTION. FINDINGS WERE CALLED TO DR. POLO CARLOS ON 10/06/[address] AT [address] 10/10/16 00:00 IMPRESSION: Early pneumonia or aspiration in the lower lobes. No evidence of esophageal stricture. Head CT 10/15/16 00:00 IMPRESSION: 1. Left subdural hematoma looks fairly stable in appearance without progressive mass effect or developing midline shift. Assessment & Plan - Diagnosis (1) Acute on chronic intracranial subdural hematoma Is this a current diagnosis for this admission?: YesPlan: Have discussed with patient's health care proxy, his daughter, the option of surgery. She reports she does not want him to "have a hole cut in his head at his age." Patient a DNR/DNI. All the patient's current mental status will likely be his new baseline. Have repeated CAT scan today which actually shows that this is stable with no active bleeding and not increasing in size. Did discuss this previously with Dr. Han from [facility] neurosurgery who recommended 7 days of Decadron. (2) Dysphagia Qualifiers: Dysphagia type: unspecified Qualified Code(s): R13.10 - Dysphagia, unspecified Is this a current diagnosis for this admission?: YesPlan: At this time, family wants to exhaust every opportunity to have a j-tube placed. Taken from Dr. Mariano's note: "GI unable to place gastrostomy tube secondary to large hiatal hernia with most of stomach in thoracic cavity. Dr. Winchester of surgery discussed J-tube with family and advised family that surgery would not be an option at this facility secondary to high surgical risk for anesthesia as a result of subdural hematoma, comorbid conditions, advanced dementia. Second opinion was obtained from Dr. Dawit Reyez of general surgery at [facility]. He agrees with Dr. Winchester assessment and states that he would not perform surgery on this patient. Per family's request third opinion was obtained from Dr. Victoria of surgery at [facility]. He agrees with Dr. Winchester assessment and states that he would not perform surgery on this patient and advises that we should obtain palliative care consult. Per family's request fourth opinion was obtained from Dr. Robles of surgery at [facility]. She agrees with Dr. Winchester assessment and states that she would not perform surgery on this patient. Continue IV fluids for now." Patient failed having Dobbhoff placed again today. Will place patient on TPN pending transfer to [facility] for placement of feeding tube. I did discuss this with [facility] and patient has been accepted by Dr. Gabriella Martin of GI. (3) Sepsis Qualifiers: Sepsis type: sepsis due to unspecified organism Qualified Code(s): A41.9 - Sepsis, unspecified organism Is this a current diagnosis for this admission?: YesPlan: Patient's sepsis due to aspiration pneumonia. (4) Aspiration pneumonia Qualifiers: Aspiration pneumonia type: due to regurgitated food Laterality: left Lung location: lower lobe of lung Qualified Code(s): J69.0 - Pneumonitis due to inhalation of food and vomit Is this a current diagnosis for this admission?: YesPlan: Patient with aspiration pneumonia secondary to dysphagia from subdural hematoma. Patient also found to have distal esophageal stricture and large hiatal hernia. Patient currently on ertapenem and breathing treatments. Patient has completed 10 days of ertapenem on 10/16/2016. Unable to obtain sputum specimen. Clinically improving. White count improving. (5) Acute blood loss anemia Is this a current diagnosis for this admission?: YesPlan: Stools negative for occult blood. Patient has possibly had a small amount of blood loss into his cranium. Patient likely suffering from acute blood loss anemia due to recent hip surgery. Patient has had an appropriate increase and hemoglobin from 7.3 to 9.9 and stable. (6) History of right hip hemiarthroplasty Is this a current diagnosis for this admission?: Yes (7) Dysphasia Is this a current diagnosis for this admission?: Yes (8) Dementia Qualifiers: Dementia type: vascular dementia Dementia behavioral disturbance: without behavioral disturbance Qualified Code(s): F01.50 - Vascular dementia without behavioral disturbance Is this a current diagnosis for this admission?: Yes (9) Hyperlipidemia Qualifiers: Hyperlipidemia type: unspecified Qualified Code(s): E78.5 - Hyperlipidemia, unspecified Is this a current diagnosis for this admission?: Yes (10) Hypertension Qualifiers: Hypertension type: essential hypertension Qualified Code(s): I10 - Essential (primary) hypertension Is this a current diagnosis for this admission?: Yes (11) Altered mental status Qualifiers: Altered mental status type: somnolence Qualified Code(s): R40.0 - Somnolence Is this a current diagnosis for this admission?: Yes (12) Malnutrition due to starvation Is this a current diagnosis for this admission?: YesPlan: Patient beginning to have skin breakdown likely secondary to malnutrition. Will start patient on TPN. Did attempt to replace William today as he's had a successful upper endoscopy, but was unable. - Time Time Spent with patient: 35 or more minutes Medications reviewed and adjusted accordingly: Yes
--- NOTE | 2016-10-17 22:02 | Palliative Consultation Report ---
Consultation From:: LEANA PULIDO Consult Reason: Palliaitve care - HPI Chief Complaint: sepsis, encephalopathy, hip fracture, dysphagia HPI: Palliaitve visit 12:15- 12:40 with patient and family Appreciate consult with this 85 year old patient who has been resident SNF recently for rehab following hip fracture. However,he has not been able tor ehab becasue of weakness due to severe dysphagia. He was admitted to [facility] with sepsis secondary to aspiration pneumonia, encephalopathy with acute on chromic sub-dural hematoma. He has pressure wounds on heals. This patient has a lare hiatal hernia which inhibits the ability to pass dubbhoff feeding tube with several attempts. Family wants PEG tube placed but four surgeons have refused to do this due to multiple comorbidities as well as size of hiatal hernia. Finally, he has been accepted to [facility] for PEG placement, but family tells me it will be on outpatietn basis and he will be returned to [place] when procedure is completed. In talking with patients daughters, they have all norris that when he gets better nutrition, all of the weakness and mental changes will improve and he will be able to participate with his PT and rehab to a much better quality of life. They are very faithful and feel God will pull him through these physical problems In spite if his somnolence and decreased ability to stay awake, family insists he is able to communicate and knows all of them. During discussion of patients current condition and potential for furhter complications, daughter informed me that "God was going to help their father get better". She is aware that he might have problems with tube placement or infection post op, and that he will have to return to SNF. She is happy he will get better nutrition and assurd he will get better. The second daughter had little to say during visit. Onset: Last week Onset/Duration: Gradual Severity: Mild Associated Symptoms: Slow to respond, Weakness Exacerbated by: Movement Relieved by: Remaining still Past Medical History(Consults) - General Information Source: [facility] Records Home Medications: Allopurinol [Zyloprim 300 mg Tablet] 300 mg PO DAILY 10/03/16 Aspirin [Aspirin 325 mg Tablet] 325 mg PO DAILY 10/03/16 Cholecalciferol (Vitamin D3) [Vitamin D3 5000 unit Capsule] 5,000 unit PO DAILY 10/03/16 Cyanocobalamin (Vitamin B-12) [Vitamin B12] 2,500 mcg PO DAILY 10/03/16 Dextromethorphan HBr [Delsym] 30 mg PO Q6 10/03/16 Iron Polysaccharide Complex [Polysaccharide Iron 150] 150 mg PO DAILY 10/03/16 Omeprazole 40 mg PO BIDACBS 10/03/16 Allergies/Adverse Reactions: sulfamethoxazole [From Bactrim] Allergy (Verified 07/04/16 21:04) trimethoprim [From Bactrim] Allergy (Verified 07/04/16 21:04) - Social History Lives with: Long Term Family History: Reviewed & Not Pertinent Parental Family History Reviewed: No Children Family History Reviewed: No Sibling(s) Family History Reviewed.: No Smoking Status: Former Smoker Last Time Smoked: 1969 Frequency of Alcohol Use: Occasional Last Alcohol Use: 09/07/01 Hx Prescription Drug Abuse: No - Past Medical History Cardiac Medical History: Reports: Hx Hypercholesterolemia, Hx Hypertension Neurological Medical History: Denies: Hx Seizures Renal/ Medical History: Reports: Other - UTI GI Medical History: Reports: Hx Hiatal Hernia Musculoskeltal Medical History: Reports Hx Muscle Weakness Traumatic Medical History: Reports: Hx Fractures - Surgical History Past Surgical History: Reports: Hx Abdominal Surgery - hernia, Hx Appendectomy, Hx Herniorrhaphy, Hx Orthopedic Surgery Review of systems Constitutional: Malaise, Weakness, Weight loss EENT: Difficulty swallowing Musculoskeltal: Joint pain Ojective:Exam Vital Signs: Temp Pulse Resp BP Pulse Ox 99.1 F 92 18 161/96 H 99 10/17/16 20:14 10/17/16 20:14 10/17/16 20:14 10/17/16 20:14 10/17/16 20:14 Intake & Output 10/16/16 10/17/16 10/18/16 06:59 06:59 06:59 Intake Total 2600 1200 Output Total 1275 400 Balance 1325 800 Weight 75.5 kg - General General Appearance: Lethargic In distress: None - Respiratory Respiratory Status: No respiratory distress Breath sounds: Clear, Rhonchi - Neurological Cranial nerves: Normal - sleeping thoughout visit, no apparent pain Objective-Diagnostic Laboratory: 10/17/16 11:10 10/17/16 10:12 10/17/16 10/17/16 10/17/16 10:12 10:12 11:10 WBC Cancelled 11.4 H RBC Cancelled 3.50 L Hgb Cancelled 10.6 L Hct Cancelled 31.9 L MCV Cancelled 91 MCH Cancelled 30.3 MCHC Cancelled 33.1 RDW Cancelled 16.1 H Plt Count Cancelled 194 Seg Neutrophils % Cancelled 81.1 H Lymphocytes % Cancelled 9.5 L Monocytes % Cancelled 7.4 Eosinophils % Cancelled 1.7 Basophils % Cancelled 0.3 Absolute Neutrophils Cancelled 9.3 H Absolute Lymphocytes Cancelled 1.1 Absolute Monocytes Cancelled 0.8 Absolute Eosinophils Cancelled 0.2 Absolute Basophils Cancelled 0.0 Sodium 135.6 L Potassium 3.6 Chloride 109 H Carbon Dioxide 20 L Anion Gap 7 BUN 11 Creatinine 0.74 Est GFR ( Amer) > 60 Est GFR (Non-Af Amer) > 60 Glucose 88 Calcium 8.7 Plan and Recommendation Plan and Recommendation: Discussion with daughters was interrupted by staff wanting to try again to l= place dubbhoff tube. Family made it aparent that they hope for a full recovery in this patient who has many comorbid conditions including greatly diminished mental capacity at present. Discussed availabiltiy of following patient in SNF after he returns if SNF MD consults PC. I gave daughter my card and cell umber. No recommendations for symptom control at this time since pipo sems comfortable and family denies complints of pain except in left hip which is resolved with change postion. - Time Spent with Patient Time spent with patient: 15 to 30 Minutes
[2016-10-18] MEDS: ENALAPRILAT DIHYDRATE INJ/PF 1.25 MG/1 ML SDV IV SCH ×3 (05:50→18:59)
[2016-10-18] MEDS: HYDRALAZINE HCL INJ/PF 20 MG/1 ML SDV IV SCH ×3 (05:50→18:59)
[2016-10-18] MEDS: POTASSI CL 20 MEQ/D5-1/2NS 1L 1,000 ML IV PRN ×2 (05:54→16:08)
[2016-10-18] MEDS: SILVER SULFADIAZINE 1% CREAM 25 GM TP SCH (09:16)
[2016-10-18] MEDS ORDERED: DEXTROSE 40% GEL 15 GM TUBE X 2 PO PRN (10:36)
[2016-10-18] MEDS ORDERED: DEXTROSE 50%-WATER SYRINGE 25 GM/50 ML DOSE IV PRN (10:36)
[2016-10-18] MEDS ORDERED: DEXTROSE 40% GEL 15 GM TUBE PO PRN (10:36)
[2016-10-18] MEDS ORDERED: INSULIN REG, HUMAN 100 UNIT/ML 3 ML VIAL (PYX) SUBCUT PRN (10:36)
[2016-10-18] MEDS ORDERED: DEXTROSE 10%-WATER 1,000 ML IV PRN (10:36)
[2016-10-18] MEDS ORDERED: GLUCAGON,HUMAN RECOMB 1 MG INJ IM PRN (10:36)
[2016-10-18] MEDS ORDERED: DEXTROSE 50%-WATER SYRINGE 12.5 GM/25 ML DOSE IV PRN (10:36)
--- NOTE | 2016-10-18 23:34 | PDOC PROGRESS REPORT ---
Subjective Progress Note for:: 10/18/16 Subjective:: No acute events overnight. Unable to obtain review of systems secondary to encephalopathy. Physical Exam Vital Signs: Temp Pulse Resp BP Pulse Ox 98.1 F 84 16 155/89 H 99 10/18/16 03:33 10/18/16 06:38 10/18/16 03:33 10/18/16 03:33 10/18/16 03:33 Intake & Output 10/17/16 10/18/16 10/19/16 06:59 06:59 06:59 Intake Total 2600 1200 Output Total 1275 1000 Balance 1325 200 Weight 75.5 kg 77.2 kg Exam: GENERAL: Nonverbal, resting comfortably, unable to arouse HEENT: Conjunctiva clear, nonicteric, moist mucous membranes, no JVD, midline trachea RESPIRATORY: Clear to auscultation bilaterally, no wheezes, no rhonchi CARDIAC: Regular rate and rhythm, no murmurs/gallops/rubs ABDOMEN: Soft, mildly distended, nontender, positive bowel sounds, no rebound, no guarding EXTREMETIES: No edema, cyanosis, clubbing NEUROLOGIC: Resting, nonverbal, unable to follow commands SKIN: No rash, wounds Results Laboratory Results: 10/17/16 11:10 10/17/16 10:12 10/17/16 10/17/16 10/17/16 10:12 10:12 11:10 WBC Cancelled 11.4 H RBC Cancelled 3.50 L Hgb Cancelled 10.6 L Hct Cancelled 31.9 L MCV Cancelled 91 MCH Cancelled 30.3 MCHC Cancelled 33.1 RDW Cancelled 16.1 H Plt Count Cancelled 194 Seg Neutrophils % Cancelled 81.1 H Lymphocytes % Cancelled 9.5 L Monocytes % Cancelled 7.4 Eosinophils % Cancelled 1.7 Basophils % Cancelled 0.3 Absolute Neutrophils Cancelled 9.3 H Absolute Lymphocytes Cancelled 1.1 Absolute Monocytes Cancelled 0.8 Absolute Eosinophils Cancelled 0.2 Absolute Basophils Cancelled 0.0 Sodium 135.6 L Potassium 3.6 Chloride 109 H Carbon Dioxide 20 L Anion Gap 7 BUN 11 Creatinine 0.74 Est GFR ( Amer) > 60 Est GFR (Non-Af Amer) > 60 Glucose 88 Calcium 8.7 Impressions: Chest X-Ray 10/05/16 06:00 IMPRESSION: Patchy airspace opacity noted in the left lung base concerning for underlying infiltrate, edema, or aspiration. Correlate clinically. Modified Barium Swallow 10/05/16 07:00 IMPRESSION: NO EVIDENCE OF PENETRATION OR ASPIRATION ALTHOUGH THE STUDY WAS LIMITED DUE TO PATIENT'S CONDITION AND INITIATION OF ONLY 1 SWALLOW OF THIN LIQUIDS. THERE WAS SPILLAGE OVER THE BASE TONGUE INTO THE VALLECULAE AND PIRIFORM SINUSES WHICH REMAIN THROUGHOUT THE ENTIRE STUDY PUTTING THE PATIENT AT HIGH RISK OF ASPIRATION. PLEASE SEE SPEECH PATHOLOGIST REPORT FOR OTHER FINDINGS AND RECOMMENDATIONS. Fluoroscopy 10/06/16 00:00 IMPRESSION: UNSUCCESSFUL PLACEMENT OF A DOBHOFF TUBE DUE TO DISTAL ESOPHAGEAL STRICTURE AND OBSTRUCTION. FINDINGS WERE CALLED TO DR. POLO CARLOS ON 10/06/[address] 10/10/16 00:00 IMPRESSION: Early pneumonia or aspiration in the lower lobes. No evidence of esophageal stricture. Head CT 10/15/16 00:00 IMPRESSION: 1. Left subdural hematoma looks fairly stable in appearance without progressive mass effect or developing midline shift. KUB X-Ray 10/17/16 12:31 IMPRESSION: Feeding tube tip distal esophagus. Assessment & Plan - Diagnosis (1) Acute on chronic intracranial subdural hematoma Is this a current diagnosis for this admission?: YesPlan: Have discussed with patient's health care proxy, his daughter, the option of surgery. She reports she does not want him to "have a hole cut in his head at his age." Patient a DNR/DNI. All the patient's current mental status will likely be his new baseline. Have repeated CAT scan today which actually shows that this is stable with no active bleeding and not increasing in size. Did discuss this previously with Dr. Han from [facility] neurosurgery who recommended 7 days of Decadron. Patient has completed this. (2) Dysphagia Qualifiers: Dysphagia type: unspecified Qualified Code(s): R13.10 - Dysphagia, unspecified Is this a current diagnosis for this admission?: YesPlan: At this time, family wants to exhaust every opportunity to have a j-tube placed. Taken from Dr. Mariano's note: "GI unable to place gastrostomy tube secondary to large hiatal hernia with most of stomach in thoracic cavity. Dr. Winchester of surgery discussed J-tube with family and advised family that surgery would not be an option at this facility secondary to high surgical risk for anesthesia as a result of subdural hematoma, comorbid conditions, advanced dementia. Second opinion was obtained from Dr. Dawit Reyez of general surgery at [facility]. He agrees with Dr. Winchester assessment and states that he would not perform surgery on this patient. Per family's request third opinion was obtained from Dr. Victoria of surgery at [facility]. He agrees with Dr. Winchester assessment and states that he would not perform surgery on this patient and advises that we should obtain palliative care consult. Per family's request fourth opinion was obtained from Dr. Robles of surgery at [facility]. She agrees with Dr. Winchester assessment and states that she would not perform surgery on this patient. Continue IV fluids for now." Patient on TPN pending transfer to [facility] for placement of feeding tube. I did discuss this with [facility] and patient has been accepted by Dr. Gabriella Martin of GI. (3) Sepsis Qualifiers: Sepsis type: sepsis due to unspecified organism Qualified Code(s): A41.9 - Sepsis, unspecified organism Is this a current diagnosis for this admission?: YesPlan: Patient's sepsis due to aspiration pneumonia. Now resolved (4) Aspiration pneumonia Qualifiers: Aspiration pneumonia type: due to regurgitated food Laterality: left Lung location: lower lobe of lung Qualified Code(s): J69.0 - Pneumonitis due to inhalation of food and vomit Is this a current diagnosis for this admission?: YesPlan: Patient with aspiration pneumonia secondary to dysphagia from subdural hematoma. Patient also found to have distal esophageal stricture and large hiatal hernia. Patient currently on ertapenem and breathing treatments. Patient has completed 10 days of ertapenem on 10/16/2016. Unable to obtain sputum specimen. Clinically improving. White count improving. (5) Acute blood loss anemia Is this a current diagnosis for this admission?: Yes (6) History of right hip hemiarthroplasty Is this a current diagnosis for this admission?: Yes (7) Dysphasia Is this a current diagnosis for this admission?: Yes (8) Dementia Qualifiers: Dementia type: vascular dementia Dementia behavioral disturbance: without behavioral disturbance Qualified Code(s): F01.50 - Vascular dementia without behavioral disturbance Is this a current diagnosis for this admission?: Yes (9) Hyperlipidemia Qualifiers: Hyperlipidemia type: unspecified Qualified Code(s): E78.5 - Hyperlipidemia, unspecified Is this a current diagnosis for this admission?: Yes (10) Hypertension Qualifiers: Hypertension type: essential hypertension Qualified Code(s): I10 - Essential (primary) hypertension Is this a current diagnosis for this admission?: Yes (11) Altered mental status Qualifiers: Altered mental status type: somnolence Qualified Code(s): R40.0 - Somnolence Is this a current diagnosis for this admission?: YesPlan: Improved. Patient's somnolence/AMS likely secondary to acute on chronic subdural hematoma and sepsis from aspiration pneumonia. (12) Malnutrition due to starvation Is this a current diagnosis for this admission?: YesPlan: Patient beginning to have skin breakdown likely secondary to malnutrition. PICC line for TPN. Will start patient on TPN. - Time Time Spent with patient: 25-34 minutes Medications reviewed and adjusted accordingly: Yes Anticipated discharge: Acute Rehab
[2016-10-19] MEDS: POTASSI CL 20 MEQ/D5-1/2NS 1L 1,000 ML IV PRN (02:02)
[2016-10-19] MEDS: HYDRALAZINE HCL INJ/PF 20 MG/1 ML SDV IV SCH ×3 (02:03→18:15)
[2016-10-19] MEDS: ENALAPRILAT DIHYDRATE INJ/PF 1.25 MG/1 ML SDV IV SCH ×3 (02:03→18:15)
[2016-10-19 06:52] LABS: BLOOD UREA NITROGEN 10 mg/dL (7-20); CALCIUM 8.4 mg/dL (8.4-10.2); CARBON DIOXIDE 23 mmol/L (22-30); CHLORIDE 109 mmol/L (98-107); CREATININE RESULT 0.79 mg/dL (0.52-1.25); GLUCOSE 93 mg/dL (75-110); MAGNESIUM 1.7 mg/dL (1.6-2.3); PHOSPHORUS 2.6 mg/dL (2.5-4.5); POTASSIUM 3.3 mmol/L (3.6-5.0)
[2016-10-19 06:59] LABS: PREALBUMIN 9.7 mg/dL (17.6-36.0)
[2016-10-19 07:23] LABS: ANION GAP 5 (5-19); SODIUM 136.6 mmol/L (137-145)
[2016-10-19 09:35] LABS: PROTHROMBIN TIME 15.8 SEC (11.4-15.4)
[2016-10-19 09:36] LABS: PARTIAL THROMBOPLASTIN TIME 38.5 SEC (23.5-35.8)
[2016-10-19] MEDS: SILVER SULFADIAZINE 1% CREAM 25 GM TP SCH (16:00)
[2016-10-19] MEDS: AMINO ACIDS 5%/D25W 1,000 ML IV PRN (18:15)
--- NOTE | 2016-10-19 19:36 | PDOC PROGRESS REPORT ---
Subjective Progress Note for:: 10/19/16 Subjective:: No acute events overnight. Unable to obtain review of systems secondary to encephalopathy. Physical Exam Vital Signs: Temp Pulse Resp BP Pulse Ox 97.7 F 78 17 127/60 H 97 10/19/16 04:00 10/19/16 14:00 10/19/16 04:00 10/19/16 04:00 10/19/16 04:00 Intake & Output 10/18/16 10/19/16 10/20/16 06:59 06:59 06:59 Intake Total 2402 1200 Output Total 1000 1700 50 Balance 1402 -500 -50 Weight 77.2 kg 77.2 kg Exam: GENERAL: Nonverbal, resting comfortably, easily aroused HEENT: Conjunctiva clear, nonicteric, moist mucous membranes, no JVD, midline trachea RESPIRATORY: Clear to auscultation bilaterally, no wheezes, no rhonchi CARDIAC: Regular rate and rhythm, no murmurs/gallops/rubs ABDOMEN: Soft, mildly distended, nontender, positive bowel sounds, no rebound, no guarding : Paraphimosis with Lux catheter present EXTREMETIES: No edema, cyanosis, clubbing NEUROLOGIC: Resting, nonverbal, follow some commands SKIN: No rash, wounds Results Laboratory Results: 10/17/16 11:10 10/19/16 06:08 10/19/16 06:08 Sodium 136.6 L Potassium 3.3 L Chloride 109 H Carbon Dioxide 23 Anion Gap 5 BUN 10 Creatinine 0.79 Est GFR ( Amer) > 60 Est GFR (Non-Af Amer) > 60 Glucose 93 Calcium 8.4 Phosphorus 2.6 Magnesium 1.7 Prealbumin 9.7 L Impressions: Chest X-Ray 10/05/16 06:00 IMPRESSION: Patchy airspace opacity noted in the left lung base concerning for underlying infiltrate, edema, or aspiration. Correlate clinically. Modified Barium Swallow 10/05/16 07:00 IMPRESSION: NO EVIDENCE OF PENETRATION OR ASPIRATION ALTHOUGH THE STUDY WAS LIMITED DUE TO PATIENT'S CONDITION AND INITIATION OF ONLY 1 SWALLOW OF THIN LIQUIDS. THERE WAS SPILLAGE OVER THE BASE TONGUE INTO THE VALLECULAE AND PIRIFORM SINUSES WHICH REMAIN THROUGHOUT THE ENTIRE STUDY PUTTING THE PATIENT AT HIGH RISK OF ASPIRATION. PLEASE SEE SPEECH PATHOLOGIST REPORT FOR OTHER FINDINGS AND RECOMMENDATIONS. Fluoroscopy 10/06/16 00:00 IMPRESSION: UNSUCCESSFUL PLACEMENT OF A DOBHOFF TUBE DUE TO DISTAL ESOPHAGEAL STRICTURE AND OBSTRUCTION. FINDINGS WERE CALLED TO DR. POLO CARLOS ON 10/06/2016 [address] 10/10/16 00:00 IMPRESSION: Early pneumonia or aspiration in the lower lobes. No evidence of esophageal stricture. Head CT 10/15/16 00:00 IMPRESSION: 1. Left subdural hematoma looks fairly stable in appearance without progressive mass effect or developing midline shift. KUB X-Ray 10/17/16 12:31 IMPRESSION: Feeding tube tip distal esophagus. Guidance Fluoroscopy 10/19/16 00:00 IMPRESSION: SUCCESSFUL PLACEMENT OF A 5 FR DUAL LUMEN 39 CM PICC IN THE left basilic VEIN. Interventional Vascular Procedure 10/19/16 00:00 IMPRESSION: SUCCESSFUL PLACEMENT OF A 5 FR DUAL LUMEN 39 CM PICC IN THE left basilic VEIN. PICC Line Insertion 10/19/16 13:00 IMPRESSION: SUCCESSFUL PLACEMENT OF A 5 FR DUAL LUMEN 39 CM PICC IN THE left basilic VEIN. Assessment & Plan - Diagnosis (1) Acute on chronic intracranial subdural hematoma Is this a current diagnosis for this admission?: YesPlan: Have discussed with patient's health care proxy, his daughter, the option of surgery. She reports she does not want him to "have a hole cut in his head at his age." Patient a DNR/DNI. All the patient's current mental status will likely be his new baseline. Have repeated CAT scan today which actually shows that this is stable with no active bleeding and not increasing in size. Did discuss this previously with Dr. Han from [facility] neurosurgery who recommended 7 days of Decadron. Patient has completed this. (2) Dysphagia Qualifiers: Dysphagia type: unspecified Qualified Code(s): R13.10 - Dysphagia, unspecified Is this a current diagnosis for this admission?: YesPlan: At this time, family wants to exhaust every opportunity to have a j-tube placed. Taken from Dr. Mraiano's note: "GI unable to place gastrostomy tube secondary to large hiatal hernia with most of stomach in thoracic cavity. Dr. Winchester of surgery discussed J-tube with family and advised family that surgery would not be an option at this facility secondary to high surgical risk for anesthesia as a result of subdural hematoma, comorbid conditions, advanced dementia. Second opinion was obtained from Dr. Dawit Reyez of general surgery at [facility]. He agrees with Dr. Winchester assessment and states that he would not perform surgery on this patient. Per family's request third opinion was obtained from Dr. Victoria of surgery at [facility]. He agrees with Dr. Winchester assessment and states that he would not perform surgery on this patient and advises that we should obtain palliative care consult. Per family's request fourth opinion was obtained from Dr. Robles of surgery at [facility]. She agrees with Dr. Winchester assessment and states that she would not perform surgery on this patient. Continue IV fluids for now." Patient on TPN pending transfer to [facility] for placement of feeding tube. I did discuss this with [facility] and patient has been accepted by Dr. Gabriella Martin of GI. (3) Sepsis Qualifiers: Sepsis type: sepsis due to unspecified organism Qualified Code(s): A41.9 - Sepsis, unspecified organism Is this a current diagnosis for this admission?: YesPlan: Patient's sepsis due to aspiration pneumonia. Now resolved (4) Aspiration pneumonia Qualifiers: Aspiration pneumonia type: due to regurgitated food Laterality: left Lung location: lower lobe of lung Qualified Code(s): J69.0 - Pneumonitis due to inhalation of food and vomit Is this a current diagnosis for this admission?: YesPlan: Patient with aspiration pneumonia secondary to dysphagia from subdural hematoma. Patient also found to have distal esophageal stricture and large hiatal hernia. Patient currently on ertapenem and breathing treatments. Patient has completed 10 days of ertapenem on 10/16/2016. Unable to obtain sputum specimen. Clinically improving. White count improving. (5) Acute blood loss anemia Is this a current diagnosis for this admission?: YesPlan: Stools negative for occult blood. Patient has possibly had a small amount of blood loss into his cranium. Patient likely suffering from acute blood loss anemia due to recent hip surgery. Patient has had an appropriate increase and hemoglobin from 7.3 to 9.9 and stable. (6) History of right hip hemiarthroplasty Is this a current diagnosis for this admission?: Yes (7) Dysphasia Is this a current diagnosis for this admission?: Yes (8) Dementia Qualifiers: Dementia type: vascular dementia Dementia behavioral disturbance: without behavioral disturbance Qualified Code(s): F01.50 - Vascular dementia without behavioral disturbance Is this a current diagnosis for this admission?: Yes (9) Hyperlipidemia Qualifiers: Hyperlipidemia type: unspecified Qualified Code(s): E78.5 - Hyperlipidemia, unspecified Is this a current diagnosis for this admission?: Yes (10) Hypertension Qualifiers: Hypertension type: essential hypertension Qualified Code(s): I10 - Essential (primary) hypertension Is this a current diagnosis for this admission?: Yes (11) Altered mental status Qualifiers: Altered mental status type: somnolence Qualified Code(s): R40.0 - Somnolence Is this a current diagnosis for this admission?: Yes (12) Malnutrition due to starvation Is this a current diagnosis for this admission?: YesPlan: Patient beginning to have skin breakdown likely secondary to malnutrition. PICC line for TPN. Will start patient on TPN. - Time Time Spent with patient: 25-34 minutes Medications reviewed and adjusted accordingly: Yes
[2016-10-19] MEDS: POTASSI CL 20 MEQ/50 ML RIDER 50 ML IV SCH ×2 (21:08→23:56)
[2016-10-19] MEDS: IPRATROPIUM/ALBUTEROL 0.5-2.5 MG/3 ML AMPUL NEB PRN (22:35)
[2016-10-20] MEDS ORDERED: FLUTICASONE NASAL SPRAY 50 MCG/SPRY 120 SPRAY/16 GM ONE (00:12)
[2016-10-20] MEDS: ENALAPRILAT DIHYDRATE INJ/PF 1.25 MG/1 ML SDV IV SCH ×4 (00:59→17:19)
[2016-10-20] MEDS: HYDRALAZINE HCL INJ/PF 20 MG/1 ML SDV IV SCH ×4 (00:59→17:19)
[2016-10-20 07:40] LABS: ANION GAP 7 (5-19); BLOOD UREA NITROGEN 13 mg/dL (7-20); CALCIUM 8.7 mg/dL (8.4-10.2); CARBON DIOXIDE 22 mmol/L (22-30); CHLORIDE 110 mmol/L (98-107); CREATININE RESULT 0.68 mg/dL (0.52-1.25); GLUCOSE 114 mg/dL (75-110); MAGNESIUM 1.7 mg/dL (1.6-2.3); PHOSPHORUS 2.9 mg/dL (2.5-4.5); POTASSIUM 3.4 mmol/L (3.6-5.0); SODIUM 139.4 mmol/L (137-145)
[2016-10-20] MEDS ORDERED: NORMAL SALINE 10 ML SDV (AFTER EACH USE) IV PRN (09:07)
[2016-10-20] MEDS ORDERED: FAT EMULSIONS 250 ML IV SCH (10:00)
[2016-10-20] MEDS: SILVER SULFADIAZINE 1% CREAM 25 GM TP SCH (11:13)
[2016-10-20] MEDS: FLUTICASONE NASAL SPRAY 50 MCG/SPRY 120 SPRAY/16 GM NASL SCH ×2 (11:32→22:24)
[2016-10-20] MEDS: NORMAL SALINE 10 ML SDV (SCHEDULED) IV SCH ×2 (11:32→22:26)
--- NOTE | 2016-10-20 15:19 | PDOC PROGRESS REPORT ---
Subjective Progress Note for:: 10/20/16 Subjective:: Patient seen earlier this morning on morning rounds. Unable to obtain review of systems secondary to baseline dementia/ encephalopathy. Physical Exam Vital Signs: Temp Pulse Resp BP Pulse Ox 97.7 F 67 16 133/56 H 96 10/20/16 12:00 10/20/16 14:31 10/20/16 14:31 10/20/16 12:00 10/20/16 14:31 Intake & Output 10/19/16 10/20/16 10/21/16 06:59 06:59 06:59 Intake Total 1200 2230 Output Total 1700 900 Balance -500 1330 Weight 77.2 kg 77.2 kg Exam: GENERAL: Nonverbal, resting comfortably, localizes to pain HEENT: Conjunctiva clear, nonicteric, moist mucous membranes, no JVD, midline trachea RESPIRATORY: Clear to auscultation bilaterally, no wheezes, no rhonchi CARDIAC: Regular rate and rhythm, no murmurs/gallops/rubs ABDOMEN: Soft, mildly distended, nontender, positive bowel sounds, no rebound, no guarding EXTREMETIES: No edema, cyanosis, clubbing NEUROLOGIC: Resting, nonverbal, unable to follow commands SKIN: No rash Results Laboratory Results: 10/17/16 11:10 10/20/16 07:05 10/20/16 07:05 Sodium 139.4 Potassium 3.4 L Chloride 110 H Carbon Dioxide 22 Anion Gap 7 BUN 13 Creatinine 0.68 Est GFR ( Amer) > 60 Est GFR (Non-Af Amer) > 60 Glucose 114 H Calcium 8.7 Phosphorus 2.9 Magnesium 1.7 Impressions: Chest X-Ray 10/05/16 06:00 IMPRESSION: Patchy airspace opacity noted in the left lung base concerning for underlying infiltrate, edema, or aspiration. Correlate clinically. Modified Barium Swallow 10/05/16 07:00 IMPRESSION: NO EVIDENCE OF PENETRATION OR ASPIRATION ALTHOUGH THE STUDY WAS LIMITED DUE TO PATIENT'S CONDITION AND INITIATION OF ONLY 1 SWALLOW OF THIN LIQUIDS. THERE WAS SPILLAGE OVER THE BASE TONGUE INTO THE VALLECULAE AND PIRIFORM SINUSES WHICH REMAIN THROUGHOUT THE ENTIRE STUDY PUTTING THE PATIENT AT HIGH RISK OF ASPIRATION. PLEASE SEE SPEECH PATHOLOGIST REPORT FOR OTHER FINDINGS AND RECOMMENDATIONS. Fluoroscopy 10/06/16 00:00 IMPRESSION: UNSUCCESSFUL PLACEMENT OF A DOBHOFF TUBE DUE TO DISTAL ESOPHAGEAL STRICTURE AND OBSTRUCTION. FINDINGS WERE CALLED TO DR. POLO CARLOS ON 10/06/[address] 10/10/16 00:00 IMPRESSION: Early pneumonia or aspiration in the lower lobes. No evidence of esophageal stricture. Head CT 10/15/16 00:00 IMPRESSION: 1. Left subdural hematoma looks fairly stable in appearance without progressive mass effect or developing midline shift. KUB X-Ray 10/17/16 12:31 IMPRESSION: Feeding tube tip distal esophagus. Guidance Fluoroscopy 10/19/16 00:00 IMPRESSION: SUCCESSFUL PLACEMENT OF A 5 FR DUAL LUMEN 39 CM PICC IN THE left basilic VEIN. Interventional Vascular Procedure 10/19/16 00:00 IMPRESSION: SUCCESSFUL PLACEMENT OF A 5 FR DUAL LUMEN 39 CM PICC IN THE left basilic VEIN. PICC Line Insertion 10/19/16 13:00 IMPRESSION: SUCCESSFUL PLACEMENT OF A 5 FR DUAL LUMEN 39 CM PICC IN THE left basilic VEIN. Assessment & Plan - Diagnosis (1) Acute on chronic intracranial subdural hematoma Is this a current diagnosis for this admission?: YesPlan: Have discussed with patient's health care proxy, his daughter, the option of surgery. She reports she does not want him to "have a hole cut in his head at his age." Patient a DNR/DNI. All the patient's current mental status will likely be his new baseline. Have repeated CAT scan today which actually shows that this is stable with no active bleeding and not increasing in size. Did discuss this previously with Dr. Han from [facility] neurosurgery who recommended 7 days of Decadron. Patient has completed this. (2) Dysphagia Qualifiers: Dysphagia type: unspecified Qualified Code(s): R13.10 - Dysphagia, unspecified Is this a current diagnosis for this admission?: YesPlan: At this time, family wants to exhaust every opportunity to have a j-tube placed. Taken from Dr. Mariano's note: "GI unable to place gastrostomy tube secondary to large hiatal hernia with most of stomach in thoracic cavity. Dr. Winchester of surgery discussed J-tube with family and advised family that surgery would not be an option at this facility secondary to high surgical risk for anesthesia as a result of subdural hematoma, comorbid conditions, advanced dementia. Second opinion was obtained from Dr. Dawit Reyez of general surgery at [facility]. He agrees with Dr. Winchester assessment and states that he would not perform surgery on this patient. Per family's request third opinion was obtained from Dr. Victoria of surgery at [facility]. He agrees with Dr. Winchester assessment and states that he would not perform surgery on this patient and advises that we should obtain palliative care consult. Per family's request fourth opinion was obtained from Dr. Robles of surgery at [facility]. She agrees with Dr. Winchester assessment and states that she would not perform surgery on this patient. Continue IV fluids for now." Patient on TPN pending transfer to [facility] for placement of feeding tube. I did discuss this with [facility] and patient has been accepted by Dr. Gabriella Martin of GI. Patient is to go tomorrow for outpatient procedure at 1:00. Currently receiving TPN until that time. (3) Sepsis Qualifiers: Sepsis type: sepsis due to unspecified organism Qualified Code(s): A41.9 - Sepsis, unspecified organism Is this a current diagnosis for this admission?: YesPlan: Patient's sepsis due to aspiration pneumonia. Now resolved (4) Aspiration pneumonia Qualifiers: Aspiration pneumonia type: due to regurgitated food Laterality: left Lung location: lower lobe of lung Qualified Code(s): J69.0 - Pneumonitis due to inhalation of food and vomit Is this a current diagnosis for this admission?: YesPlan: Patient with aspiration pneumonia secondary to dysphagia from subdural hematoma. Patient also found to have distal esophageal stricture and large hiatal hernia. Patient currently on ertapenem and breathing treatments. Patient has completed 10 days of ertapenem on 10/16/2016. Unable to obtain sputum specimen. Clinically improving. White count improving. (5) Acute blood loss anemia Is this a current diagnosis for this admission?: YesPlan: Stools negative for occult blood. Patient has possibly had a small amount of blood loss into his cranium. Patient likely suffering from acute blood loss anemia due to recent hip surgery. After transfusion on 10/04/16, patient has had an appropriate increase and hemoglobin from 7.3 to 9.9 and stable. (6) History of right hip hemiarthroplasty Is this a current diagnosis for this admission?: Yes (7) Dysphasia Is this a current diagnosis for this admission?: Yes (8) Dementia Qualifiers: Dementia type: vascular dementia Dementia behavioral disturbance: without behavioral disturbance Qualified Code(s): F01.50 - Vascular dementia without behavioral disturbance Is this a current diagnosis for this admission?: YesPlan: Continue supportive care. Believe this is patient's new baseline (9) Hyperlipidemia Qualifiers: Hyperlipidemia type: unspecified Qualified Code(s): E78.5 - Hyperlipidemia, unspecified Is this a current diagnosis for this admission?: Yes (10) Hypertension Qualifiers: Hypertension type: essential hypertension Qualified Code(s): I10 - Essential (primary) hypertension Is this a current diagnosis for this admission?: Yes (11) Altered mental status Qualifiers: Altered mental status type: somnolence Qualified Code(s): R40.0 - Somnolence Is this a current diagnosis for this admission?: Yes (12) Malnutrition due to starvation Is this a current diagnosis for this admission?: YesPlan: Patient beginning to have skin breakdown likely secondary to malnutrition. PICC line for TPN. Patient on TPN. - Time Critical Time spent with patient: 15-24 minutes Medications reviewed and adjusted accordingly: Yes
[2016-10-20] MEDS: AMINO ACIDS 5%/D25W 1,000 ML IV PRN (17:19)
--- NOTE | 2016-10-20 18:31 | PDOC TRANSFER SUMMARY ---
General Admission Date/PCP: 10/03/16 20:10 GLADYS CARVAJAL MD Admission Date: 10/03/16 Transfer Date: 10/21/16 Accepting Facility: [place] Accepting Physician: Dr. Gabriella Martin Resuscitation Status: Do Not Resuscitate - Transfer Diagnosis (1) Acute on chronic intracranial subdural hematoma Is this a current diagnosis for this admission?: Yes (2) Dysphagia Is this a current diagnosis for this admission?: Yes (3) Sepsis Is this a current diagnosis for this admission?: Yes (4) Aspiration pneumonia Is this a current diagnosis for this admission?: Yes (5) Acute blood loss anemia Is this a current diagnosis for this admission?: Yes (6) History of right hip hemiarthroplasty Is this a current diagnosis for this admission?: Yes (7) Dysphasia Is this a current diagnosis for this admission?: Yes (8) Dementia Is this a current diagnosis for this admission?: Yes (9) Hyperlipidemia Is this a current diagnosis for this admission?: Yes (10) Hypertension Is this a current diagnosis for this admission?: Yes (11) Altered mental status Is this a current diagnosis for this admission?: Yes (12) Malnutrition due to starvation Is this a current diagnosis for this admission?: Yes - Transfer Medications Home Medications: Allopurinol [Zyloprim 300 mg Tablet] 300 mg PO DAILY 10/03/16 Aspirin [Aspirin 325 mg Tablet] 325 mg PO DAILY 10/03/16 Cholecalciferol (Vitamin D3) [Vitamin D3 5000 unit Capsule] 5,000 unit PO DAILY 10/03/16 Cyanocobalamin (Vitamin B-12) [Vitamin B12] 2,500 mcg PO DAILY 10/03/16 Dextromethorphan HBr [Delsym] 30 mg PO Q6 10/03/16 Iron Polysaccharide Complex [Polysaccharide Iron 150] 150 mg PO DAILY 10/03/16 Omeprazole 40 mg PO BIDACBS 10/03/16 Transfer Medications: Current Medications Albuterol (Ventolin 0.083% Neb 2.5 Mg/3 Ml Ampul) 2.5 mg NEB RTQ6HP PRN PRN Reason: SHORTNESS OF BREATH Stop: 11/13/16 16:35 Albuterol/Ipratropium (Duoneb 3 Ml Ampul) 3 ml NEB RTQ4HP PRN PRN Reason: SHORTNESS OF BREATH Stop: 11/18/16 22:23 Last Admin: 10/19/16 22:35 Dose: 3 ml Bisacodyl (Dulcolax 10 Mg Supp.Rect) 10 mg AK DAILYP PRN Stop: 11/07/16 10:09 Clonidine HCl (Catapres-Tts 2 (0.2 Mg/24 Hr) Transderm Ptch) 1 each TD Fr@1200 HOSSEIN Stop: 11/13/16 11:59 Last Admin: 10/14/16 12:05 Dose: 1 each Clonidine HCl (Catapres-Tts 1 (0.1 Mg/24 Hr) Transderm Patch) 1 each TD NOW ONE Stop: 10/23/16 15:01 Dextrose (Dextrose Inj 50% Syringe (25 Gm/50 Ml)) 12.5 gm IV PRN PRN; Protocol PRN Reason: FOR BG 50-69 IN ALERT PATIENT Stop: 11/17/16 10:35 Dextrose (Dextrose Inj 50% Syringe (25 Gm/50 Ml)) 25 gm IV PRN PRN PRN Reason: Protocol Stop: 11/17/16 10:35 Enalaprilat (Vasotec Inj/Pf 1.25 Mg/1 Ml Sdv) 1.25 mg IV Q6 HOSSEIN Stop: 11/07/16 10:36 Last Admin: 10/20/16 17:19 Dose: 1.25 mg Fluticasone Propionate (Flonase Nasal [place] 50 Mcg/[place] 16 Gm) 2 spray NASL Q12 HOSSEIN Stop: 11/18/16 22:29 Last Admin: 10/20/16 11:32 Dose: 2 spray Glucagon (Glucagen Inj 1 Mg Vial) 1 mg IM PRN PRN; Protocol PRN Reason: EVALUATE FOR BG < 70 Stop: 11/17/16 10:35 Glucose (Glutose 40% Gel 15 Gm Tube) 15 gm PO PRN PRN; Protocol PRN Reason: FOR BG 50-69 IN ALERT PATIENT Stop: 11/17/16 10:35 Glucose (Glutose 40% Gel 15 Gm Tube) 30 gm PO PRN PRN; Protocol PRN Reason: FOR BG < 50 IN ALERT PATIENT Stop: 11/17/16 10:35 Heparin Sodium (Porcine) (Heparin Flush 10 Unit/Ml 5 Ml Disp.Syrg) 30 unit IV Q12 HOSSEIN Stop: 11/19/16 09:59 Last Admin: 10/20/16 11:31 Dose: 30 unit Heparin Sodium (Porcine) (Heparin Flush 10 Unit/Ml 5 Ml Disp.Syrg) 30 unit IV .AFTER EACH USE PRN Stop: 11/19/16 09:06 Hydralazine HCl (Apresoline Inj/Pf 20 Mg/1 Ml Sdv) 10 mg IV Q6HP PRN PRN Reason: SBP greater than 165 Stop: 11/03/16 19:58 Last Admin: 10/09/16 08:12 Dose: 10 mg Hydralazine HCl (Apresoline Inj/Pf 20 Mg/1 Ml Sdv) 10 mg IV Q6 HOSSEIN Stop: 11/15/16 17:59 Last Admin: 10/20/16 17:19 Dose: 10 mg Potassium Chloride/Dextrose/Sod Cl (D5-1/2ns 1000 Ml/Kcl 20 Meq Premix Bag) 1, 000 mls @ 100 mls/hr IV CONTINUOUS PRN PRN Reason: THIS MED IS NOT "PRN" Stop: 11/12/16 07:43 Last Admin: 10/19/16 02:02 Dose: 1,000 ml Amino Acids (Clinimix 5%-25% Tpn Solution 1000 Ml Bag) 1,000 mls @ 45 mls/hr IV .CONTINUOUS PRN Stop: 11/17/16 10:35 Last Admin: 10/20/16 17:19 Dose: 1,000 ml Fat Emulsion Intravenous (Intralipid 20% Inj 50 Gm/250 Ml Bag) 250 mls @ 50 mls /hr IV MoTh@1000 HOSSEIN PRN Reason: Protocol Stop: 11/19/16 09:59 Last Admin: 10/20/16 11:31 Dose: 250 ml Dextrose (D10w 1000 Ml Iv Soln) 1,000 mls @ 0 mls/hr IV .TEMPORARY PRN PRN Reason: As Directed Stop: 11/17/16 10:35 Insulin Human Regular (Humulin R (Pyxis) Insulin 100 Unit/Ml 3ml) 0 - 12 unit SUBCUT Q6HP PRN PRN Reason: Protocol Stop: 11/17/16 10:35 Pharmacy Profile Note (Medication Communication Order) 1 each MC .NOTICE NR Stop: 11/04/16 18:59 Pharmacy Profile Note (Medication Communication Order) 1 each MC .NOTICE NR Stop: 11/15/16 13:44 Pharmacy Profile Note (Medication Communication Order) 1 each MC .NOTICE NR Stop: 11/16/16 12:44 Silver Sulfadiazine (Silvadene 1% Cream 25 Gm) 1 applic TP DAILY HOSSEIN Stop: 11/17/16 09:59 Last Admin: 10/20/16 11:13 Dose: Not Given Sodium Chloride (Nacl 0.9% Inj/Pf 10 Ml Sdv) 10 ml IV Q12 HOSSEIN Stop: 11/19/16 09:59 Last Admin: 10/20/16 11:32 Dose: 10 ml Sodium Chloride (Nacl 0.9% Inj/Pf 10 Ml Sdv) 10 ml IV .AFTER EACH USE PRN Stop: 11/19/16 09:06 - Allergies Allergies/Adverse Reactions: sulfamethoxazole [From Bactrim] Allergy (Verified 07/04/16 21:04) trimethoprim [From Bactrim] Allergy (Verified 07/04/16 21:04) - Diet/Activity Discharge Diet: Other (Comments) - Nothing by mouth Discharge Activity: Bedrest Hospital Course Hospital Course: Patient was admitted with altered mental status was was initially thought to be due to a complicated UTI due to chronic indwelling Lux catheter which was placed for urinary retention and subsequent paraphimosis. CAT scan was performed and patient was found to have an acute on likely chronic subdural hematoma. This was discussed with outside neurosurgery and the patient's family. Patient's hematoma at its greatest was no larger than 1 cm with a 7 mm shift. Patient was given one week of IV Decadron with some improvement of his mental status. Serial CT scans were performed which revealed essentially no rapid expansion and eventual stability. During the course of patient's stay, he wasn't quickly revealed the patient had an aspiration pneumonia. Family had reported that patient had been having difficulty swallowing and had seen ENT as an outpatient who reported that this was due to humming/throat clearing related to his underlying dementia. An NG was attempted and failed. A Dobbhoff was attempted and failed as well. CT of the chest revealed possible esophageal stricture and family declined transfer until GI return for upper endoscopy. Patient underwent upper endoscopy on 10/11/2016 which revealed no esophageal stricture but a paraesophageal type hernia as well as gastritis. At that time, it was revealed that he would need a surgical jejunostomy as the majority of the stomach was in his thoracic cavity. Patient had PICC line placed and was started on TPN. Patient completed a ten-day course of ertapenem for his aspiration pneumonia. At this time, patient's family still wanted to pursue feeding measures. Patient was accepted by [facility] is happy to accept this patient back after feeding tube is placed. Physical Exam Vital Signs: Temp Pulse Resp BP Pulse Ox 97.7 F 67 16 133/56 H 96 10/20/16 12:00 10/20/16 14:31 10/20/16 14:31 10/20/16 12:00 10/20/16 14:31 Intake & Output 10/19/16 10/20/16 10/21/16 06:59 06:59 06:59 Intake Total 1200 2230 1040 Output Total 1700 900 Balance -500 1330 1040 Weight 77.2 kg 77.2 kg Exam: GENERAL: Nonverbal, resting comfortably, localizes to pain HEENT: Conjunctiva clear, nonicteric, moist mucous membranes, no JVD, midline trachea RESPIRATORY: Clear to auscultation bilaterally, no wheezes, no rhonchi CARDIAC: Regular rate and rhythm, no murmurs/gallops/rubs ABDOMEN: Soft, mildly distended, nontender, positive bowel sounds, no rebound, no guarding EXTREMETIES: No edema, cyanosis, clubbing NEUROLOGIC: Resting, nonverbal, unable to follow commands SKIN: No rash Results Laboratory Results: 10/17/16 11:10 10/20/16 07:05 10/20/16 07:05 Sodium 139.4 Potassium 3.4 L Chloride 110 H Carbon Dioxide 22 Anion Gap 7 BUN 13 Creatinine 0.68 Est GFR ( Amer) > 60 Est GFR (Non-Af Amer) > 60 Glucose 114 H Calcium 8.7 Phosphorus 2.9 Magnesium 1.7 Impressions: Chest X-Ray 10/05/16 06:00 IMPRESSION: Patchy airspace opacity noted in the left lung base concerning for underlying infiltrate, edema, or aspiration. Correlate clinically. Modified Barium Swallow 10/05/16 07:00 IMPRESSION: NO EVIDENCE OF PENETRATION OR ASPIRATION ALTHOUGH THE STUDY WAS LIMITED DUE TO PATIENT'S CONDITION AND INITIATION OF ONLY 1 SWALLOW OF THIN LIQUIDS. THERE WAS SPILLAGE OVER THE BASE TONGUE INTO THE VALLECULAE AND PIRIFORM SINUSES WHICH REMAIN THROUGHOUT THE ENTIRE STUDY PUTTING THE PATIENT AT HIGH RISK OF ASPIRATION. PLEASE SEE SPEECH PATHOLOGIST REPORT FOR OTHER FINDINGS AND RECOMMENDATIONS. Fluoroscopy 10/06/16 00:00 IMPRESSION: UNSUCCESSFUL PLACEMENT OF A DOBHOFF TUBE DUE TO DISTAL ESOPHAGEAL STRICTURE AND OBSTRUCTION. FINDINGS WERE CALLED TO DR. POLO CARLOS ON 10/06/[address] AT [address] 10/10/16 00:00 IMPRESSION: Early pneumonia or aspiration in the lower lobes. No evidence of esophageal stricture. Head CT 10/15/16 00:00 IMPRESSION: 1. Left subdural hematoma looks fairly stable in appearance without progressive mass effect or developing midline shift. KUB X-Ray 10/17/16 12:31 IMPRESSION: Feeding tube tip distal esophagus. Guidance Fluoroscopy 10/19/16 00:00 IMPRESSION: SUCCESSFUL PLACEMENT OF A 5 FR DUAL LUMEN 39 CM PICC IN THE left basilic VEIN. Interventional Vascular Procedure 10/19/16 00:00 IMPRESSION: SUCCESSFUL PLACEMENT OF A 5 FR DUAL LUMEN 39 CM PICC IN THE left basilic VEIN. PICC Line Insertion 10/19/16 13:00 IMPRESSION: SUCCESSFUL PLACEMENT OF A 5 FR DUAL LUMEN 39 CM PICC IN THE left basilic VEIN. Plan Time Spent: Greater than 30 Minutes
[2016-10-21] MEDS: HYDRALAZINE HCL INJ/PF 20 MG/1 ML SDV IV SCH ×4 (01:59→17:37)
[2016-10-21] MEDS: ENALAPRILAT DIHYDRATE INJ/PF 1.25 MG/1 ML SDV IV SCH ×4 (01:59→17:37)
[2016-10-21] MEDS: IPRATROPIUM/ALBUTEROL 0.5-2.5 MG/3 ML AMPUL NEB PRN (02:06)
[2016-10-21 06:00] LABS: ANION GAP 6 (5-19); BLOOD UREA NITROGEN 15 mg/dL (7-20); CALCIUM 8.6 mg/dL (8.4-10.2); CARBON DIOXIDE 25 mmol/L (22-30); CHLORIDE 109 mmol/L (98-107); CREATININE RESULT 0.75 mg/dL (0.52-1.25); GLUCOSE 131 mg/dL (75-110); MAGNESIUM 1.8 mg/dL (1.6-2.3); PHOSPHORUS 3.2 mg/dL (2.5-4.5); SODIUM 139.9 mmol/L (137-145)
[2016-10-21 06:18] LABS: POTASSIUM 2.6 mmol/L (3.6-5.0)
[2016-10-21] MEDS ORDERED: POTASSI CL 20 MEQ/50 ML RIDER 20 MEQ/50 ML RTUPB IV ONE (06:32)
[2016-10-21] MEDS: POTASSIUM CHLORIDE 20 MEQ/50 ML RTU IV SCH ×3 (07:15→10:39)
[2016-10-21] MEDS: FLUTICASONE NASAL SPRAY 50 MCG/SPRY 120 SPRAY/16 GM NASL SCH (09:34)
[2016-10-21] MEDS: NORMAL SALINE 10 ML SDV (SCHEDULED) IV SCH (09:34)
[2016-10-21] MEDS: SILVER SULFADIAZINE 1% CREAM 25 GM TP SCH (09:34)
[2016-10-21] MEDS: CLONIDINE 0.2 MG/24 HR PATCH.TDWK TD SCH (11:10)
[2016-10-21 22:45] LABS: ANION GAP 7 (5-19); BLOOD UREA NITROGEN 17 mg/dL (7-20); CALCIUM 8.4 mg/dL (8.4-10.2); CARBON DIOXIDE 23 mmol/L (22-30); CHLORIDE 105 mmol/L (98-107); CREATININE RESULT 0.74 mg/dL (0.52-1.25); GLUCOSE 374 mg/dL (75-110); POTASSIUM 3.2 mmol/L (3.6-5.0); SODIUM 135.2 mmol/L (137-145)
[2016-10-21 22:56] LABS: HEMATOCRIT 29.3 % (37.9-51.0); HEMOGLOBIN 9.8 g/dL (13.5-17.0); HGB HCT DIFFERENCE 0.1; MEAN CORPUSCULAR HEMOGLOBIN 30.4 pg (27.0-33.4); MEAN CORPUSCULAR HGB CONC 33.4 g/dL (32.0-36.0); MEAN CORPUSCULAR VOLUME 91 fl (80-97); RED BLOOD COUNT 3.21 10^6/uL (4.35-5.55); RED CELL DISTRIBUTION WIDTH 16.3 % (11.5-14.0); WHITE BLOOD COUNT 10.8 10^3/uL (4.0-10.5)
[2016-10-21 23:00] LABS: BAND NEUTROPHILS % (MANUAL) 7 % (3-5); BASOPHILS % (MANUAL) 0 % (0-2); EOSINOPHILS % (MANUAL) 0 % (0-6); LYMPHOCYTES % (MANUAL) 6 % (13-45); TOTAL CELLS COUNTED 100
[2016-10-21 23:12] LABS: ANISOCYTOSIS 1+; BURR CELLS 1+; OVALOCYTES 1+; SCHISTOCYTES 1+; TOXIC GRANULATION 1+
[2016-10-21] MEDS ORDERED: MAGNESIUM SULFATE/D5W 1 G/100 ML RTUPB IV ONE (23:22)
[2016-10-21] MEDS ORDERED: POTASSI CL 20 MEQ/50 ML RIDER 20 MEQ/50 ML RTUPB IV SCH (23:30)
[2016-10-22] MEDS: HYDRALAZINE HCL INJ/PF 20 MG/1 ML SDV IV SCH ×4 (00:30→19:13)
[2016-10-22] MEDS: ENALAPRILAT DIHYDRATE INJ/PF 1.25 MG/1 ML SDV IV SCH ×4 (00:51→19:13)
[2016-10-22] MEDS: FLUTICASONE NASAL SPRAY 50 MCG/SPRY 120 SPRAY/16 GM NASL SCH ×2 (00:51→11:31)
[2016-10-22] MEDS: NORMAL SALINE 10 ML SDV (SCHEDULED) IV SCH ×3 (00:53→22:14)
[2016-10-22] MEDS ORDERED: POTASSI CL 20 MEQ/50 ML RIDER 20 MEQ/50 ML RTUPB IV ONE (04:45)
[2016-10-22] MEDS: IPRATROPIUM/ALBUTEROL 0.5-2.5 MG/3 ML AMPUL NEB PRN (04:49)
[2016-10-22] MEDS ORDERED: LACTULOSE SYRUP 20 GM/30 ML UDCUP PR ONE (09:00)
[2016-10-22] MEDS: SILVER SULFADIAZINE 1% CREAM 25 GM TP SCH (16:11)
[2016-10-22] MEDS ORDERED: OXYCODONE HCL IR 5 MG TABLET JT PRN (19:36)
[2016-10-22] MEDS ORDERED: FLUTICASONE NASAL SPRAY 50 MCG/SPRY 120 SPRAY/16 GM NASL SCH (19:36)
--- NOTE | 2016-10-22 20:31 | PDOC PROGRESS REPORT ---
Subjective Progress Note for:: 10/22/16 Subjective:: Overnight, patient developed feculent material from his jejunostomy tube. This was placed to suction. KUB was obtained and patient was found to have pneumoperitoneum likely secondary to his procedure as well as fecal impaction. Patient was given lactulose enema today with good results. Unable to obtain review of systems from patient secondary to encephalopathy. Physical Exam Vital Signs: Temp Pulse Resp BP Pulse Ox 97.6 F 82 16 125/65 97 10/22/16 08:08 10/22/16 08:08 10/22/16 08:08 10/22/16 08:08 10/22/16 08:08 Intake & Output 10/21/16 10/22/16 10/23/16 06:59 06:59 06:59 Intake Total 1580 940 Output Total 800 400 Balance 780 540 Weight 77.8 kg 79.6 kg Exam: GENERAL: Nonverbal, resting comfortably, localizes to pain HEENT: Conjunctiva clear, nonicteric, moist mucous membranes, no JVD, midline trachea RESPIRATORY: Clear to auscultation bilaterally, no wheezes, no rhonchi CARDIAC: Regular rate and rhythm, no murmurs/gallops/rubs ABDOMEN: Soft, mildly distended, mildly tender to palpation around J-tube site, positive bowel sounds, no rebound, no guarding, no rigidity EXTREMETIES: No edema, cyanosis, clubbing NEUROLOGIC: Resting, nonverbal, unable to follow commands SKIN: No rash Results Laboratory Results: 10/21/16 21:40 10/21/16 21:40 10/21/16 10/21/16 21:40 21:40 WBC 10.8 H RBC 3.21 L Hgb 9.8 L Hct 29.3 L MCV 91 MCH 30.4 MCHC 33.4 RDW 16.3 H Plt Count 156 Seg Neutrophils % Not Reportable Lymphocytes % Not Reportable Monocytes % Not Reportable Eosinophils % Not Reportable Basophils % Not Reportable Absolute Neutrophils Not Reportable Absolute Lymphocytes Not Reportable Absolute Monocytes Not Reportable Absolute Eosinophils Not Reportable Absolute Basophils Not Reportable Sodium 135.2 L Potassium 3.2 L Chloride 105 Carbon Dioxide 23 Anion Gap 7 BUN 17 Creatinine 0.74 Est GFR ( Amer) > 60 Est GFR (Non-Af Amer) > 60 Glucose 374 H Calcium 8.4 Impressions: Chest X-Ray 10/05/16 06:00 IMPRESSION: Patchy airspace opacity noted in the left lung base concerning for underlying infiltrate, edema, or aspiration. Correlate clinically. Modified Barium Swallow 10/05/16 07:00 IMPRESSION: NO EVIDENCE OF PENETRATION OR ASPIRATION ALTHOUGH THE STUDY WAS LIMITED DUE TO PATIENT'S CONDITION AND INITIATION OF ONLY 1 SWALLOW OF THIN LIQUIDS. THERE WAS SPILLAGE OVER THE BASE TONGUE INTO THE VALLECULAE AND PIRIFORM SINUSES WHICH REMAIN THROUGHOUT THE ENTIRE STUDY PUTTING THE PATIENT AT HIGH RISK OF ASPIRATION. PLEASE SEE SPEECH PATHOLOGIST REPORT FOR OTHER FINDINGS AND RECOMMENDATIONS. Fluoroscopy 10/06/16 00:00 IMPRESSION: UNSUCCESSFUL PLACEMENT OF A DOBHOFF TUBE DUE TO DISTAL ESOPHAGEAL STRICTURE AND OBSTRUCTION. FINDINGS WERE CALLED TO DR. POLO CARLOS ON 10/06/[address] 10/10/16 00:00 IMPRESSION: Early pneumonia or aspiration in the lower lobes. No evidence of esophageal stricture. Head CT 10/15/16 00:00 IMPRESSION: 1. Left subdural hematoma looks fairly stable in appearance without progressive mass effect or developing midline shift. KUB X-Ray 10/17/16 12:31 IMPRESSION: Feeding tube tip distal esophagus. Guidance Fluoroscopy 10/19/16 00:00 IMPRESSION: SUCCESSFUL PLACEMENT OF A 5 FR DUAL LUMEN 39 CM PICC IN THE left basilic VEIN. Interventional Vascular Procedure 10/19/16 00:00 IMPRESSION: SUCCESSFUL PLACEMENT OF A 5 FR DUAL LUMEN 39 CM PICC IN THE left basilic VEIN. PICC Line Insertion 10/19/16 13:00 IMPRESSION: SUCCESSFUL PLACEMENT OF A 5 FR DUAL LUMEN 39 CM PICC IN THE left basilic VEIN. Acute Abdomen Series 10/22/16 04:51 IMPRESSION: 1. Diffuse pneumoperitoneum presumably related to recent G-tube placement. Clinical correlation is needed. 2. Gas pattern is nonspecific. Assessment & Plan - Diagnosis (1) Acute on chronic intracranial subdural hematoma Is this a current diagnosis for this admission?: YesPlan: Have discussed with patient's health care proxy, his daughter, the option of surgery. She reports she does not want him to "have a hole cut in his head at his age." Patient a DNR/DNI. All the patient's current mental status will likely be his new baseline. Have repeated CAT scan today which actually shows that this is stable with no active bleeding and not increasing in size. Did discuss this previously with Dr. Han from [facility] neurosurgery who recommended 7 days of Decadron. Patient has completed this. (2) Dysphagia Qualifiers: Dysphagia type: unspecified Qualified Code(s): R13.10 - Dysphagia, unspecified Is this a current diagnosis for this admission?: YesPlan: At this time, family wants to exhaust every opportunity to have a j-tube placed. Taken from Dr. Mariano's note: "GI unable to place gastrostomy tube secondary to large hiatal hernia with most of stomach in thoracic cavity. Dr. Winchester of surgery discussed J-tube with family and advised family that surgery would not be an option at this facility secondary to high surgical risk for anesthesia as a result of subdural hematoma, comorbid conditions, advanced dementia. Second opinion was obtained from Dr. Dawit Reyez of general surgery at [facility]. He agrees with Dr. Winchester assessment and states that he would not perform surgery on this patient. Per family's request third opinion was obtained from Dr. Victoria of surgery at [facility]. He agrees with Dr. Winchester assessment and states that he would not perform surgery on this patient and advises that we should obtain palliative care consult. Per family's request fourth opinion was obtained from Dr. Robles of surgery at [facility]. She agrees with Dr. Winchester assessment and states that she would not perform surgery on this patient. Continue IV fluids for now." Patient underwent jejunostomy placement on 10/21/2016. Plan to initiate tube feeds. (3) Sepsis Qualifiers: Sepsis type: sepsis due to unspecified organism Qualified Code(s): A41.9 - Sepsis, unspecified organism Is this a current diagnosis for this admission?: YesPlan: Patient's sepsis due to aspiration pneumonia. Now resolved (4) Aspiration pneumonia Qualifiers: Aspiration pneumonia type: due to regurgitated food Laterality: left Lung location: lower lobe of lung Qualified Code(s): J69.0 - Pneumonitis due to inhalation of food and vomit Is this a current diagnosis for this admission?: YesPlan: Patient with aspiration pneumonia secondary to dysphagia from subdural hematoma. Patient also found to have distal esophageal stricture and large hiatal hernia. Patient currently on ertapenem and breathing treatments. Patient has completed 10 days of ertapenem on 10/16/2016. Unable to obtain sputum specimen. Clinically improving. White count improving. (5) Acute blood loss anemia Is this a current diagnosis for this admission?: YesPlan: Stools negative for occult blood. Patient has possibly had a small amount of blood loss into his cranium. Patient likely suffering from acute blood loss anemia due to recent hip surgery. After transfusion on 10/04/16, patient has had an appropriate increase and hemoglobin from 7.3 to 9.9 and stable. (6) History of right hip hemiarthroplasty Is this a current diagnosis for this admission?: Yes (7) Dysphasia Is this a current diagnosis for this admission?: Yes (8) Dementia Qualifiers: Dementia type: vascular dementia Dementia behavioral disturbance: without behavioral disturbance Qualified Code(s): F01.50 - Vascular dementia without behavioral disturbance Is this a current diagnosis for this admission?: Yes (9) Hyperlipidemia Qualifiers: Hyperlipidemia type: unspecified Qualified Code(s): E78.5 - Hyperlipidemia, unspecified Is this a current diagnosis for this admission?: Yes (10) Hypertension Qualifiers: Hypertension type: essential hypertension Qualified Code(s): I10 - Essential (primary) hypertension Is this a current diagnosis for this admission?: Yes (11) Altered mental status Qualifiers: Altered mental status type: somnolence Qualified Code(s): R40.0 - Somnolence Is this a current diagnosis for this admission?: Yes (12) Malnutrition due to starvation Is this a current diagnosis for this admission?: YesPlan: Patient beginning to have skin breakdown likely secondary to malnutrition. Patient now on tube feeds. (13) Fecal impaction Is this a current diagnosis for this admission?: YesPlan: Patient had resolution with lactulose enema. Now the patient has a J-tube we will place him on regular cathartics. - Time Time Spent with patient: 25-34 minutes Medications reviewed and adjusted accordingly: Yes Anticipated discharge: Acute Rehab
[2016-10-22 20:54] LABS: ABSOLUTE BASOPHILS # (AUTO) 0.1 10^3/uL (0.0-0.2); ABSOLUTE LYMPHOCYTES (AUTO) 0.7 10^3/uL (0.5-4.7); ABSOLUTE MONOCYTES (AUTO) 0.5 10^3/uL (0.1-1.4); ABSOLUTE NEUT (AUTO) 11.4 10^3/uL (1.7-8.2); BASOPHILS % (AUTO) 0.5 % (0-2); EOSINOPHILS % (AUTO) 0.4 % (0-6); HEMATOCRIT 29.1 % (37.9-51.0); HEMOGLOBIN 9.6 g/dL (13.5-17.0); HGB HCT DIFFERENCE -0.3; LYMPHOCYTES % (AUTO) 5.8 % (13-45); MEAN CORPUSCULAR HEMOGLOBIN 29.9 pg (27.0-33.4); MEAN CORPUSCULAR HGB CONC 32.9 g/dL (32.0-36.0); MEAN CORPUSCULAR VOLUME 91 fl (80-97); MONOCYTES % (AUTO) 3.6 % (3-13); RED BLOOD COUNT 3.21 10^6/uL (4.35-5.55); SEGMENTED NEUTROPHILS % (AUTO) 89.7 % (42-78); WHITE BLOOD COUNT 12.7 10^3/uL (4.0-10.5)
[2016-10-22 21:06] LABS: ANION GAP 11 (5-19); BLOOD UREA NITROGEN 19 mg/dL (7-20); CALCIUM 8.6 mg/dL (8.4-10.2); CARBON DIOXIDE 22 mmol/L (22-30); CHLORIDE 110 mmol/L (98-107); CREATININE RESULT 0.82 mg/dL (0.52-1.25); GLUCOSE 81 mg/dL (75-110); POTASSIUM 3.3 mmol/L (3.6-5.0); SODIUM 143.2 mmol/L (137-145)
[2016-10-23] MEDS: HYDRALAZINE HCL INJ/PF 20 MG/1 ML SDV IV SCH ×2 (00:22→05:50)
[2016-10-23] MEDS: ENALAPRILAT DIHYDRATE INJ/PF 1.25 MG/1 ML SDV IV SCH ×2 (00:22→05:50)
[2016-10-23] MEDS: POTASSI CL 20 MEQ/D5-1/2NS 1L 1,000 ML IV PRN (02:51)
[2016-10-23] MEDS: IPRATROPIUM/ALBUTEROL 0.5-2.5 MG/3 ML AMPUL NEB PRN (05:17)
[2016-10-23] MEDS ORDERED: METOPROLOL TARTRATE PF/INJ 5 MG/5 ML SDV IV ONE ×2 (05:44→07:30)
[2016-10-23 07:20] LABS: ABSOLUTE EOSINOPHILS # (AUTO) 0.1 10^3/uL (0.0-0.6); ABSOLUTE LYMPHOCYTES (AUTO) 0.7 10^3/uL (0.5-4.7); ABSOLUTE MONOCYTES (AUTO) 0.4 10^3/uL (0.1-1.4); ABSOLUTE NEUT (AUTO) 12.3 10^3/uL (1.7-8.2); BASOPHILS % (AUTO) 0.1 % (0-2); EOSINOPHILS % (AUTO) 0.4 % (0-6); HEMOGLOBIN 9.8 g/dL (13.5-17.0); HGB HCT DIFFERENCE -0.6; LYMPHOCYTES % (AUTO) 5.4 % (13-45); MEAN CORPUSCULAR HEMOGLOBIN 30.1 pg (27.0-33.4); MEAN CORPUSCULAR HGB CONC 32.8 g/dL (32.0-36.0); MEAN CORPUSCULAR VOLUME 92 fl (80-97); MONOCYTES % (AUTO) 3.3 % (3-13); RED BLOOD COUNT 3.27 10^6/uL (4.35-5.55); RED CELL DISTRIBUTION WIDTH 15.7 % (11.5-14.0); SEGMENTED NEUTROPHILS % (AUTO) 90.8 % (42-78); WHITE BLOOD COUNT 13.5 10^3/uL (4.0-10.5)
[2016-10-23 07:46] LABS: ANION GAP 12 (5-19); BLOOD UREA NITROGEN 22 mg/dL (7-20); CALCIUM 8.7 mg/dL (8.4-10.2); CARBON DIOXIDE 21 mmol/L (22-30); CHLORIDE 111 mmol/L (98-107); CREATININE RESULT 1.06 mg/dL (0.52-1.25); GLUCOSE 121 mg/dL (75-110); MAGNESIUM 1.9 mg/dL (1.6-2.3); PHOSPHORUS 2.6 mg/dL (2.5-4.5); POTASSIUM 3.6 mmol/L (3.6-5.0); SODIUM 143.7 mmol/L (137-145)
[2016-10-23] MEDS ORDERED: POTASSI CL 20 MEQ/D5-1/2NS 1L 1,000 ML IV PRN (07:57)
[2016-10-23] MEDS ORDERED: FUROSEMIDE INJ/PF 20 MG/2 ML SDV IV ONE (08:30)
[2016-10-23] MEDS ORDERED: MORPHINE SULFATE 10 MG/ML INJ IV ONE (08:30)
[2016-10-23 08:51] VITALS: BP 123/68
[2016-10-23] MEDS ORDERED: ACETAMINOPHEN 650 MG SUPP.RECT PR PRN (09:22)
[2016-10-23] MEDS ORDERED: CLINDAMYCIN 600 MG/D5W RTU 50 ML IV SCH (09:30)
[2016-10-23] MEDS ORDERED: MORPHINE SULFATE 10 MG/ML INJ IV PRN (09:39)
[2016-10-23] MEDS ORDERED: GUAIFENESIN SYRP 200 MG/10 ML UDC JT SCH (10:00)
[2016-10-23] MEDS ORDERED: LACTULOSE SYRUP 20 GM/30 ML UDCUP JT SCH (10:00)
[2016-10-23] MEDS ORDERED: ACETAMINOPHEN 650 MG SUPP.RECT PR ONE (10:30)
[2016-10-23] MEDS ORDERED: PIPERACILLIN SODIUM/TAZOBACTAM 3.375 GM in NORMAL SALINE 100 ML IV SCH (12:00)
[2016-10-23] MEDS ORDERED: CLONIDINE 0.1 MG/24 HR PATCH.TDWK TD ONE (15:00)
[2016-10-23] MEDS ORDERED: ALBUTEROL SULFATE 0.083% NEB 2.5 MG/3 ML AMPUL NEB SCH (16:00)
--- NOTE | 2016-10-23 17:45 | PDOC PROGRESS REPORT ---
Subjective Progress Note for:: 10/23/16 Subjective:: Overnight, patient became tachycardic and was given Lopressor for this. Patient is also given at that time additional free water flushes through his J- tube. Patient examined with nurse present. Patient visibly moving in bed and quite uncomfortable. Patient with tachypnea. Physical Exam Vital Signs: Temp Pulse Resp BP Pulse Ox 98.0 F 81 18 132/81 H 95 10/23/16 04:24 10/23/16 05:20 10/23/16 05:20 10/23/16 04:24 10/23/16 04:24 Intake & Output 10/22/16 10/23/16 10/24/16 06:59 06:59 06:59 Intake Total 940 7292 Output Total 400 1025 Balance 540 6267 Weight 79.6 kg 75.5 kg Exam: GENERAL: Acute pain, restless, Nonverbal, febrile HEENT: Conjunctiva clear, nonicteric, moist mucous membranes, +JVD, midline trachea RESPIRATORY: Rales bilateral bases, diffuse rhonchi throughout CARDIAC: Regular rate and rhythm, no murmurs/gallops/rubs ABDOMEN: Rigid, distended, subcutaneous air, tender to palpation around J-tube site, absent bowel sounds EXTREMETIES: No cyanosis, clubbing; 2+ edema bilaterally NEUROLOGIC: Restless, nonverbal, unable to follow commands SKIN: No rash Results Laboratory Results: 10/23/16 07:10 10/23/16 07:10 10/22/16 10/22/16 10/23/16 19:25 19:25 07:10 WBC 12.7 H RBC 3.21 L Hgb 9.6 L Hct 29.1 L MCV 91 MCH 29.9 MCHC 32.9 RDW 16.0 H Plt Count 162 Seg Neutrophils % 89.7 H Lymphocytes % 5.8 L Monocytes % 3.6 Eosinophils % 0.4 Basophils % 0.5 Absolute Neutrophils 11.4 H Absolute Lymphocytes 0.7 Absolute Monocytes 0.5 Absolute Eosinophils 0.0 Absolute Basophils 0.1 Sodium 143.2 143.7 Potassium 3.3 L 3.6 Chloride 110 H 111 H Carbon Dioxide 22 21 L Anion Gap 11 12 BUN 19 22 H Creatinine 0.82 1.06 Est GFR ( Amer) > 60 > 60 Est GFR (Non-Af Amer) > 60 > 60 Glucose 81 121 H Calcium 8.6 8.7 Phosphorus 2.6 Magnesium 1.9 10/23/16 07:10 WBC 13.5 H RBC 3.27 L Hgb 9.8 L Hct 30.0 L MCV 92 MCH 30.1 MCHC 32.8 RDW 15.7 H Plt Count 163 Seg Neutrophils % 90.8 H Lymphocytes % 5.4 L Monocytes % 3.3 Eosinophils % 0.4 Basophils % 0.1 Absolute Neutrophils 12.3 H Absolute Lymphocytes 0.7 Absolute Monocytes 0.4 Absolute Eosinophils 0.1 Absolute Basophils 0.0 Sodium Potassium Chloride Carbon Dioxide Anion Gap BUN Creatinine Est GFR ( Amer) Est GFR (Non-Af Amer) Glucose Calcium Phosphorus Magnesium Impressions: Chest X-Ray 10/05/16 06:00 IMPRESSION: Patchy airspace opacity noted in the left lung base concerning for underlying infiltrate, edema, or aspiration. Correlate clinically. Modified Barium Swallow 10/05/16 07:00 IMPRESSION: NO EVIDENCE OF PENETRATION OR ASPIRATION ALTHOUGH THE STUDY WAS LIMITED DUE TO PATIENT'S CONDITION AND INITIATION OF ONLY 1 SWALLOW OF THIN LIQUIDS. THERE WAS SPILLAGE OVER THE BASE TONGUE INTO THE VALLECULAE AND PIRIFORM SINUSES WHICH REMAIN THROUGHOUT THE ENTIRE STUDY PUTTING THE PATIENT AT HIGH RISK OF ASPIRATION. PLEASE SEE SPEECH PATHOLOGIST REPORT FOR OTHER FINDINGS AND RECOMMENDATIONS. Fluoroscopy 10/06/16 00:00 IMPRESSION: UNSUCCESSFUL PLACEMENT OF A DOBHOFF TUBE DUE TO DISTAL ESOPHAGEAL STRICTURE AND OBSTRUCTION. FINDINGS WERE CALLED TO DR. POLO CARLOS ON 10/06/[address] 10/10/16 00:00 IMPRESSION: Early pneumonia or aspiration in the lower lobes. No evidence of esophageal stricture. Head CT 10/15/16 00:00 IMPRESSION: 1. Left subdural hematoma looks fairly stable in appearance without progressive mass effect or developing midline shift. KUB X-Ray 10/17/16 12:31 IMPRESSION: Feeding tube tip distal esophagus. Guidance Fluoroscopy 10/19/16 00:00 IMPRESSION: SUCCESSFUL PLACEMENT OF A 5 FR DUAL LUMEN 39 CM PICC IN THE left basilic VEIN. Interventional Vascular Procedure 10/19/16 00:00 IMPRESSION: SUCCESSFUL PLACEMENT OF A 5 FR DUAL LUMEN 39 CM PICC IN THE left basilic VEIN. PICC Line Insertion 10/19/16 13:00 IMPRESSION: SUCCESSFUL PLACEMENT OF A 5 FR DUAL LUMEN 39 CM PICC IN THE left basilic VEIN. Acute Abdomen Series 10/22/16 04:51 IMPRESSION: 1. Diffuse pneumoperitoneum presumably related to recent G-tube placement. Clinical correlation is needed. 2. Gas pattern is nonspecific. Assessment & Plan - Diagnosis (1) Sepsis Qualifiers: Sepsis type: sepsis due to unspecified organism Qualified Code(s): A41.9 - Sepsis, unspecified organism Is this a current diagnosis for this admission?: YesPlan: Concern at this time for perforation. Have ordered stat CT abdomen and pelvis with oral contrast only to be given through J-tube. (2) Acute on chronic intracranial subdural hematoma Is this a current diagnosis for this admission?: Yes (3) Dysphagia Qualifiers: Dysphagia type: unspecified Qualified Code(s): R13.10 - Dysphagia, unspecified Is this a current diagnosis for this admission?: YesPlan: At this time, family wants to exhaust every opportunity to have a j-tube placed. Taken from Dr. Mariano's note: "GI unable to place gastrostomy tube secondary to large hiatal hernia with most of stomach in thoracic cavity. Dr. Winchester of surgery discussed J-tube with family and advised family that surgery would not be an option at this facility secondary to high surgical risk for anesthesia as a result of subdural hematoma, comorbid conditions, advanced dementia. Second opinion was obtained from Dr. Dawit Reyez of general surgery at [facility]. He agrees with Dr. Winchester assessment and states that he would not perform surgery on this patient. Per family's request third opinion was obtained from Dr. Victoria of surgery at [facility]. He agrees with Dr. Winchester assessment and states that he would not perform surgery on this patient and advises that we should obtain palliative care consult. Per family's request fourth opinion was obtained from Dr. Robles of surgery at [facility]. She agrees with Dr. Winchester assessment and states that she would not perform surgery on this patient. Continue IV fluids for now." Patient underwent jejunostomy placement on 10/21/2016. Place jejunostomy to suction low intermittent. (4) Aspiration pneumonia Qualifiers: Aspiration pneumonia type: due to regurgitated food Laterality: left Lung location: lower lobe of lung Qualified Code(s): J69.0 - Pneumonitis due to inhalation of food and vomit Is this a current diagnosis for this admission?: YesPlan: Patient with aspiration pneumonia secondary to dysphagia from subdural hematoma. Patient also found to have distal esophageal stricture and large hiatal hernia. Patient currently on ertapenem and breathing treatments. Patient has completed 10 days of ertapenem on 10/16/2016. Unable to obtain sputum specimen. Clinically improving. White count improving. Patient has been restarted on Zosyn with concerns for recurrent aspiration pneumonia (5) Acute blood loss anemia Is this a current diagnosis for this admission?: Yes (6) History of right hip hemiarthroplasty Is this a current diagnosis for this admission?: Yes (7) Dysphasia Is this a current diagnosis for this admission?: Yes (8) Dementia Qualifiers: Dementia type: vascular dementia Dementia behavioral disturbance: without behavioral disturbance Qualified Code(s): F01.50 - Vascular dementia without behavioral disturbance Is this a current diagnosis for this admission?: Yes (9) Hyperlipidemia Qualifiers: Hyperlipidemia type: unspecified Qualified Code(s): E78.5 - Hyperlipidemia, unspecified Is this a current diagnosis for this admission?: Yes (10) Hypertension Qualifiers: Hypertension type: essential hypertension Qualified Code(s): I10 - Essential (primary) hypertension Is this a current diagnosis for this admission?: Yes (11) Altered mental status Qualifiers: Altered mental status type: somnolence Qualified Code(s): R40.0 - Somnolence Is this a current diagnosis for this admission?: Yes (12) Malnutrition due to starvation Is this a current diagnosis for this admission?: Yes (13) Fecal impaction Is this a current diagnosis for this admission?: Yes (14) Volume overload Qualifiers: Hypervolemia type: other Qualified Code(s): E87.79 - Other fluid overload Is this a current diagnosis for this admission?: YesPlan: Patient suffering from acute volume overload likely worsened by his underlying albumin. Will give IV Lasix now - Time Time Spent with patient: 25-34 minutes Medications reviewed and adjusted accordingly: Yes
--- NOTE | 2016-10-23 17:55 | Death Summary ---
Summary Date : 10/23/16 Time of :: 11:50 Autopsy: No Resuscitation Status: Do Not Resuscitate Consulting Provider: Abhishek Winchester - Final Diagnosis (1) Acute on chronic intracranial subdural hematoma Is this a current diagnosis for this admission?: Yes (2) Sepsis Is this a current diagnosis for this admission?: Yes (3) Aspiration pneumonia Is this a current diagnosis for this admission?: Yes (4) Dysphagia Is this a current diagnosis for this admission?: Yes (5) Acute blood loss anemia Is this a current diagnosis for this admission?: Yes (6) History of right hip hemiarthroplasty Is this a current diagnosis for this admission?: Yes (7) Dysphasia Is this a current diagnosis for this admission?: Yes (8) Dementia Is this a current diagnosis for this admission?: Yes (9) Hyperlipidemia Is this a current diagnosis for this admission?: Yes (10) Hypertension Is this a current diagnosis for this admission?: Yes (11) Altered mental status Is this a current diagnosis for this admission?: Yes (12) Malnutrition due to starvation Is this a current diagnosis for this admission?: Yes (13) Fecal impaction Is this a current diagnosis for this admission?: Yes (14) Volume overload Is this a current diagnosis for this admission?: Yes Hospital Course:: Patient is an 85-year-old -[place] male who was admitted to [facility] with acute encephalopathy which was initially thought to be due to a chronic indwelling Lux catheter. Patient was discovered to have aspiration pneumonia secondary to dysphagia as well as a subdural hematoma. Patient was treated conservatively for his subdural hematoma including IV Decadron. Aspiration pneumonia is also treated for 10 days with ertapenem. Patient was evaluated by speech therapy and was found to be unsafe for oral intake of food. Attempts were made to pass a Dobbhoff without success. After taking patient to fluoroscopy, it was revealed that patient had possible stricture. A CT was performed of the chest which revealed a large hiatal hernia. Patient underwent upper endoscopy on 10/12/2016. Patient had mild gastritis at that time. Patient family requested feeding tube placement, but patient was refused at more than 4 institutions prior to being accepted to [facility] for outpatient procedure. Patient underwent jejunostomy placement on 10/21/2016 reportedly without complication. On 10/22/2016 patient was found to have stool coming out of his jejunostomy and was given lactulose enema with good results. Feeds were started later that evening. That night patient became tachycardic and the next day patient appeared to have worsened with perhaps a new pneumonia versus acute volume overload. Antibiotics and CT were ordered, the patient unfortunately in the presence of his family. No autopsy was requested.
== END 2016-10-23 11:50 | disposition expired | DRG 871 ==
LOC: ER 14:48 → UNDOADMIN 19:08 → EH 19:08 → 3W 10-04 18:31 → 5 10-18 14:02
PROVIDERS: ADMIT Family Medicine; ATTEND Family Medicine
PROC: 0DB68ZX Excision of Stomach, Via Natural or Artificial Opening Endoscopic, Diagnostic (ICD-10-PCS; principal; 2016-10-11 13:00)
PROC: 02HV33Z Insertion of Infusion Device into Superior Vena Cava, Percutaneous Approach (ICD-10-PCS; 2016-10-19)
PROC: B5181ZA Fluoroscopy of Superior Vena Cava using Low Osmolar Contrast, Guidance (ICD-10-PCS; 2016-10-19)
PROC: B548ZZA Ultrasonography of Superior Vena Cava, Guidance (ICD-10-PCS; 2016-10-19)
DX: A41.9 Sepsis, unspecified organism (principal); I62.01 Nontraumatic acute subdural hemorrhage; J69.0 Pneumonitis due to inhalation of food and vomit; G93.40 Encephalopathy, unspecified; I62.03 Nontraumatic chronic subdural hemorrhage; T83.511A Infection and inflammatory reaction due to indwelling urethral catheter, initial encounter; D62 Acute posthemorrhagic anemia; E46 Unspecified protein-calorie malnutrition; K44.9 Diaphragmatic hernia without obstruction or gangrene; R47.02 Dysphasia; T73.0XXA Starvation, initial encounter; E87.70 Fluid overload, unspecified; K66.8 Other specified disorders of peritoneum; K29.70 Gastritis, unspecified, without bleeding; I10 Essential (primary) hypertension; E78.5 Hyperlipidemia, unspecified; K21.9 Gastro-esophageal reflux disease without esophagitis; F03.90 Unspecified dementia, unspecified severity, without behavioral disturbance, psychotic disturbance, mood disturbance, and anxiety; Z79.82 Long term (current) use of aspirin; Z79.899 Other long term (current) drug therapy; Z88.8 Allergy status to other drugs, medicaments and biological substances; Z96.641 Presence of right artificial hip joint
CPT/HCPCS: 36415; 36430; 36569; 43239; 70450; 71010; 71260; 74000; 74020; 74022; 74230; 76000; 76937; 77001; 80048; 80053; 81001; 82272; 82803; 82962; 83605; 83735; 84100; 84134; 85025; 85610; 85730; 86850; 86900; 86901; 86920; 87040; 87077; 87086; 87493; 87804; 88305; 88342; 94640; 96365; 96375; 99285; G8978-GP; G8979-GP; G8996-GN; G8997-GN; G8998-GN; J0131; J0171; J0360; J0696; J1100; J1200; J1335; J1610; J1642; J1644; J1940; J2250; J2270; J2310; J2405; J2550; J3010; J3430; J3475; J3480; J3490; J7620; P9016; S0164